=== PATIENT | female | born 1965 | race Caucasian/White ===

== ENCOUNTER 2017-09-17 20:48 | Observation (INO) | payer OTHER, SELFPAY ==
--- NOTE | 2017-09-17 12:40 | EKG12_ITS ---
Test Reason : CP Blood Pressure : / mmHG Vent. Rate : 104 BPM Atrial Rate : 104 BPM P-R Int : 150 ms QRS Dur : 088 ms QT Int : 360 ms P-R-T Axes : 027 004 060 degrees QTc Int : 473 ms Sinus tachycardia Low voltage QRS Nonspecific T wave abnormality Abnormal ECG Confirmed by MAIKOL BECERRIL, BRENDA ([id number]), manuscript editor NATALIO HESTER ([id number]) on 09/20/2017 5:48:49 PM Referred By: Atul Felipe Confirmed By:BRENDA LASSITER MD
--- NOTE | 2017-09-17 21:00 | RAD_ITS ---
STUDY: X-RAY CHEST REASON FOR EXAM: Female, 52 years old. Chest pain TECHNIQUE: Single AP portable view of the chest. COMPARISON: February 23, 2014 FINDINGS: The lungs are clear and expanded. There is no demonstrated pleural abnormality. Normal size heart. Normal mediastinum and vanessa. Normal visualized pulmonary arteries. Normal visualized aortic arch and descending thoracic aorta. Normal visualized thoracic spine. Normal visualized ribs, clavicles, and shoulders. There is no demonstrated abnormality of the visualized soft tissue structures of the upper abdomen. RAD/Chest 1 View (Portable) IMPRESSION: Normal x-ray examination of the chest. Electronically Signed: John Valdez MD at 21:48 EDT , Service support ,
--- NOTE | 2017-09-17 21:07 | EKG12_ITS ---
Test Reason : REPEAT EKG Blood Pressure : / mmHG Vent. Rate : 086 BPM Atrial Rate : 086 BPM P-R Int : 176 ms QRS Dur : 088 ms QT Int : 394 ms P-R-T Axes : 013 008 066 degrees QTc Int : 471 ms Normal sinus rhythm Low voltage QRS Septal infarct , age undetermined Abnormal ECG Confirmed by MAIKOL BECERRIL, BRENDA ([id number]), metropolitan editor NATALIO HESTER ([id number]) on 09/20/2017 6:29:32 PM Referred By: Atul Felipe Confirmed By:BRENDA LASSITER MD
--- NOTE | 2017-09-17 23:00 | CT_ITS ---
STUDY: CTA CHEST REASON FOR EXAM: Female, 52 years old. Chest pain radiating into the back, possible dissection RADIATION DOSAGE (If Supplied By Facility): CTDIvol = ( 15.06 ) mGy, DLP = ( 654.44 ) mGycm TECHNIQUE: The examination was performed with the intravenous administration of 100ML ml of Isovue 370 contrast material. Post-processing of the angiographic images was performed, with multiplanar reformation and 3D reconstruction. Individualized dose optimization techniques were used for this CT. COMPARISON: None. FINDINGS: Normal enhancement of the main pulmonary artery and right and left pulmonary arteries. Normal enhancement of the bilateral peripheral pulmonary arteries. There is no demonstrated pulmonary embolism. Normal thoracic aorta and visualized great vessels. There is no demonstrated aortic dissection. Normal heart and pericardium. Normal mediastinum. Normal hilar regions. Normal visualized trachea and bronchi. The lungs are well expanded. Normal pulmonary parenchyma. Normal pleura. Normal chest wall structures. There are degenerative changes of thoracic spine. Normal visualized upper abdomen. CT/CTA Chest W/WO Contrast IMPRESSION: Normal CTA chest examination, without a demonstrated pulmonary embolism or arterial dissection. Electronically Signed: Derian Verde MD at 23:46 EDT Tel , Service support ,
[2017-09-18] VITALS (14 sets, daily range): BP systolic 113–164; BP diastolic 58–85; PULSE 87–101; RESP 16–18; TEMP 36.4–36.7; O2SAT 95–100
--- NOTE | 2017-09-18 02:00 | DT_ITS ---
This patient was seen during an EMR downtime September 11, 2017 - September 18, 2017. This patient may have a combination of paper and electronic documentation or all paper documentation. All documentation is viewable within the e-chart portion of [facility] for each patient visit.
--- NOTE | 2017-09-18 02:24 | EKG12_ITS ---
Test Reason : AM EKG/ADMIT Blood Pressure : / mmHG Vent. Rate : 080 BPM Atrial Rate : 080 BPM P-R Int : 180 ms QRS Dur : 078 ms QT Int : 406 ms P-R-T Axes : 013 -09 052 degrees QTc Int : 468 ms Normal sinus rhythm Low voltage QRS Septal infarct , age undetermined Abnormal ECG Confirmed by MATTY BECERRIL, ANAYELI ([id number]), script editor NATALIO HESTER ([id number]) on 09/22/2017 1:47:02 PM Referred By: Atul Felipe Confirmed By:ANAYELI STARR MD
[2017-09-18 03:08] LABS: Absolute Lymphocyte Count 2.79 X10^3/ul (0.83-4.51); Absolute Neutrophil Count 7.7 X10^3/uL (2.0-7.7); Basophil# 0.06 X10^3/uL; Basophil% 0.5 % (0-1); Eosinophil# 0.26 X10^3/uL; Eosinophils% 2.3 % (0-5); Hematocrit 41.8 % (37-47); Hemoglobin 14.1 g/dl (12.0-15.0); Lymphocyte # 2.79 X10^3/ul (4.0); Lymphocyte % 24.5 % (19-41); Mean Corp Hgb Conc 33.7 g/gl (32-36); Mean Corpuscular Hgb 31.3 pg (27.0-32.0); Mean Corpuscular Volume 92.7 fL (81-99); Mean Platelet Vol. 9.6 fl (6.2-12.0); Monocyte# 0.57 X10^3/uL; Neutrophil # 7.69 X10^3/uL (2.7-7.7); Neutrophil % 67.4 % (47-70); Platelet Count 333 K/mm3 (150-450); RBC Distribution Width CV 12.9 % (11.6-14.6); RBC Distribution Width SD 43.8 fl (35.1-43.9); Red Blood Count 4.51 M/mm3 (4.2-5.4); White Blood Count 11.4 K/mm3 (4.4-11.0)
[2017-09-18 03:22] LABS: POSITIVE COUNT NO; POSITIVE DIFFERENTIAL NO; POSITIVE MORPHOLOGY NO
[2017-09-18] MEDS: Enoxaparin 150 MG/ML Syringe 135 MG SC (05:05)
[2017-09-18] MEDS: 0.9% NaCl Peripheral Flush Adult/Peds IV (05:28)
[2017-09-18] MEDS: Dextrose 50%-Water 25 GM/50 ML DISP.SYRIN IV (05:28)
[2017-09-18 05:50] LABS: Prothrombin Time (Protime)PT. 13.2 SECONDS (11.7-14.9)
[2017-09-18 05:51] LABS: Partial Thromboplast Time 33.6 Seconds (24.1-36.2)
[2017-09-18 06:09] LABS: Anion Gap 5 (5-15); BUN 11 mg/dL (7-18); Calcium,Total 8.6 mg/dL (8.5-10.1); Chloride 107 mmol/L (98-107); Cholesterol 155 mg/dL (200); Creatinine, Serum 0.58 mg/dL (0.55-1.02); EST Glomerular Filtration Rate 117 mL/min (>60); Est Glom Filt Rate - Afr Amer 142 mL/min (>60); Glucose 66 mg/dL (74-106); High Density Lipoprotein 45 mg/dL; Sodium Level 143 mmol/L (136-145); T4 Free Direct 1.01 ng/dL (0.76-1.46); Thyroid Stim Hormone (TSH) 4.81 uIU/mL (0.358-3.74); Triglycerides 137 mg/dL; Very Low Density Lipoprotein 27 mg/dL (5-40)
--- NOTE | 2017-09-18 10:35 | PCM.RX.CS ---
Consult Pharmacy has been consulted to manage selected antiobiotic: Vancomycin Type of Consult: New start Suspected Infection: Skin/Soft tissue Prior Doses of Antibiotics Received/Current Regimen: 2000MG IN ER AT 0100 Labs: Sodium 143 mmol/L (136-145) 09/18/17 05:00 Potassium 4.0 mmol/L (3.5-5.1) 09/18/17 05:00 Chloride 107 mmol/L (98-107) 09/18/17 05:00 Carbon Dioxide 31.0 mmol/L (21.0-32.0) 09/18/17 05:00 Anion Gap 5 (5-15) 09/18/17 05:00 BUN 11 mg/dL (7-18) 09/18/17 05:00 Creatinine 0.58 mg/dL (0.55-1.02) 09/18/17 05:00 Est GFR (MDRD) Af Amer 142 mL/min (>60) 09/18/17 05:00 Est GFR (MDRD) Non-Af 117 mL/min (>60) 09/18/17 05:00 BUN/Creatinine Ratio 19.0 RATIO (10-20) 09/18/17 05:00 Glucose 66 mg/dL (74-106) L 09/18/17 05:00 Weight used for dosin.8 kg Estimated Creatinine Clearance: >100 Goal Trough: 10-15 mcg/mL - 1750MG Q12H, CHECK TROUGH 09/19/17 @ 1230 Pharmacy Plan for Drug Dosing: Pharmacy Service will continue to monitor and adjust dosing as required.
--- NOTE | 2017-09-18 12:21 | PCM.PN.CARD ---
Subjectve: Patient seen and evaluated Objective: Weight: 299 lb 6.204 oz General: Awake, Alert, Oriented x 3 HEENT: PERRL, EOMI, Sclera Non Icteric Neck: Supple, Good ROM, No Lymph Node Enlargement Lungs: Clear to auscultation Cardiovascular: Regular Rhythm, Normal S1, Normal S2, No Murmurs, No Rubs, No Gallops Vascular: No Carotid Bruits, Normal Femoral Pulses, Normal Radial Pulses, Normal Dorsalis Pedal Pulse, Normal Posterior Tibial Pulses Abdomen: Bowel Sounds Present, Soft, Non Tender, No HSM, No Organomegaly Extremities: No Cyanosis, No Clubbing, No edema Neurological: No Focal Motor or Sensory Deficit 09/18/17 02:43: WBC 11.4 H, RBC 4.51, Hgb 14.1, Hct 41.8, MCV 92.7, MCH 31.3, MCHC 33.7, RDW 12.9, RDW Differential 43.8, Plt Count 333, MPV 9.6, Immature Gran % (Auto) 0.300, Neut % (Auto) 67.4, Lymph % (Auto) 24.5, [place] % (Auto) 5.0, Eos % (Auto) 2.3, Baso % (Auto) 0.5, Absolute Neuts (auto) 7.7, Total Counted Not Reportable 09/18/17 05:00: Sodium 143, Potassium 4.0, Chloride 107, Carbon Dioxide 31.0, Anion Gap 5, BUN 11, Creatinine 0.58, Est GFR (MDRD) Af Amer 142, Est GFR (MDRD) Non-Af 117, BUN/Creatinine Ratio 19.0, Glucose 66 L, Calcium 8.6, Troponin I 11.200 H*, Triglycerides 137, Cholesterol 155, LDL Cholesterol 83, VLDL Cholesterol 27, HDL Cholesterol 45 09/18/17 05:15: PT 13.2, INR 1.0, APTT 33.6 09/18/17 08:40: Troponin I 9.860 H* Rhythm: EKG: ECHO: Stress Test: Cardiac Cath: PCI: CT Surgery: Holter monitor: EPS: PPM: CXR: Chest CT Scan: Medical Necessity - Tobacco Use Smoking Status: Former smoker Assessment/Plan Patient underwent cardiac catheterization this morning which demonstrated the following: Left main coronary artery with mild disease. Left anterior descending artery severely diseased in the proximal mid and distal segments with serial 80% stenosis. First obtuse marginal branch with proximal long 90% stenotic lesion. First diagonal vessel with moderate disease. Proximal right coronary artery with moderate 50-70% stenotic lesion. Left ventriculogram deferred. An echocardiogram will be obtained. Based on the above angiographic findings the patient will be considered for coronary artery bypass surgery.
--- NOTE | 2017-09-18 12:27 | PN.CARD_ITS ---
Subjectve: Patient seen and evaluated Objective: Weight: 299 lb 6.204 oz General: Awake, Alert, Oriented x 3 HEENT: PERRL, EOMI, Sclera Non Icteric Neck: Supple, Good ROM, No Lymph Node Enlargement Lungs: Clear to auscultation Cardiovascular: Regular Rhythm, Normal S1, Normal S2, No Murmurs, No Rubs, No Gallops Vascular: No Carotid Bruits, Normal Femoral Pulses, Normal Radial Pulses, Normal Dorsalis Pedal Pulse, Normal Posterior Tibial Pulses Abdomen: Bowel Sounds Present, Soft, Non Tender, No HSM, No Organomegaly Extremities: No Cyanosis, No Clubbing, No edema Neurological: No Focal Motor or Sensory Deficit 09/18/17 02:43: WBC 11.4 H, RBC 4.51, Hgb 14.1, Hct 41.8, MCV 92.7, MCH 31.3, MCHC 33.7, RDW 12.9, RDW Differential 43.8, Plt Count 333, MPV 9.6, Immature Gran % (Auto) 0.300, Neut % (Auto) 67.4, Lymph % (Auto) 24.5, [place] % (Auto) 5.0 , Eos % (Auto) 2.3, Baso % (Auto) 0.5, Absolute Neuts (auto) 7.7, Total Counted Not Reportable 09/18/17 05:00: Sodium 143, Potassium 4.0, Chloride 107, Carbon Dioxide 31.0, Anion Gap 5, BUN 11, Creatinine 0.58, Est GFR (MDRD) Af Amer 142, Est GFR (MDRD ) Non-Af 117, BUN/Creatinine Ratio 19.0, Glucose 66 L, Calcium 8.6, Troponin I 11.200 H*, Triglycerides 137, Cholesterol 155, LDL Cholesterol 83, VLDL Cholesterol 27, HDL Cholesterol 45 09/18/17 05:15: PT 13.2, INR 1.0, APTT 33.6 09/18/17 08:40: Troponin I 9.860 H* Rhythm: EKG: ECHO: Stress Test: Cardiac Cath: PCI: CT Surgery: Holter monitor: EPS: PPM: CXR: Chest CT Scan: Medical Necessity - Tobacco Use Smoking Status: Former smoker Assessment/Plan Patient underwent cardiac catheterization this morning which demonstrated the following: Left main coronary artery with mild disease. Left anterior descending artery severely diseased in the proximal mid and distal segments with serial 80% stenosis. First obtuse marginal branch with proximal long 90% stenotic lesion. First diagonal vessel with moderate disease. Proximal right coronary artery with moderate 50-70% stenotic lesion. Left ventriculogram deferred. An echocardiogram will be obtained. Based on the above angiographic findings the patient will be considered for coronary artery bypass surgery.
[2017-09-18] MEDS: Famotidine 20 MG Tablet PO (12:58)
[2017-09-18] MEDS: hydroCHLOROthiazide 25 MG Tablet PO (12:58)
[2017-09-18] MEDS: Lisinopril 40 MG Tablet PO (12:59)
[2017-09-18] MEDS: buPROPion (XL) 300 MG TABLET.XL PO (12:59)
--- NOTE | 2017-09-18 13:00 | ECHOD_ITS ---
Reason For Study: CAD/ASHD Procedure This was a 2D Doppler, Color Flow transthoracic echocardiogram. The study was technically difficult. The study was technically limited. Due to body habitus. Contrast injection was performed. Exam performed portable in patient room. Left Ventricle Normal LV size. Left ventricular systolic function is normal. The estimated ejection fraction is 65 %. Transmitral diastolic flow velocities suggest mild (stage 1) diastolic dysfunction (reversed pattern). No regional wall motion abnormalities noted. Right Ventricle Normal RV size. Normal systolic function. Atria Normal left atrium. Normal right atrium. Mitral Valve Mitral valve not well visualized. Tricuspid Valve The tricuspid valve is not well visualized. Unable to estimate RV systolic pressure due to inadequate jet, pulmonary artery pressure probably normal. Aortic Valve The aortic valve is not well visualized. Pulmonic Valve Normal pulmonic valve. Great Vessels Normal aortic root. The pulmonary artery is normal size. Normal inferior vena cava. Pericardium/Pleural No pericardial effusion. Medication Diluted definity 4.0ml given slow IV push to enhance endocardial definition. MMode/2D Measurements & Calculations LVIDd: 4.1 cm IVSd: 1.2 cm LVIDs: 2.6 cm LVPWd: 1.0 cm FS: 35.4 % Doppler Measurements & Calculations MV E max bear: 73.3 cm/sec Ao V2 max: 144.5 cm/sec LV V1 max: 99.2 cm/sec MV A max bear: 110.9 cm/sec Ao max P.4 mmHg LV V1 max P.9 mmHg MV E/A: 0.66 PA V2 max: 98.6 cm/sec Interpretation Summary Normal LV size. Left ventricular systolic function is normal. The estimated ejection fraction is 65 %. Transmitral diastolic flow velocities suggest mild (stage 1) diastolic dysfunction (reversed pattern). Contrast injection was performed. Ordering Physician: Nolberto Toscano Referring Physician: Angela Canchola Performed By: Karon Chiu RDCS, RVT
[2017-09-18] MEDS: 0.9% Normal Saline 1,000 ML 100 ML IV (13:54)
[2017-09-18 14:01] LABS: Bedside Glucose 231 mg/dL (70-110)
--- NOTE | 2017-09-18 14:19 | DCINST_ITS ---
You will use the following diet at home:: Calorie/Carbohydrate Controlled ( specify 1200, 1400, etc) - 1800 kcal/day, Cardiac Your food should be the consistency of: Regular Your liquids should be the consistency of: Regular/Thin Allergies/Adverse Reactions: Allergies adhesive Allergy (Verified 02/23/14 16:33) Rash bacitracin [From Neosporin ([id number])] Allergy (Verified 02/23/14 16:32) Rash bacitracin zinc [From Neosporin ([id number])] Allergy (Verified 02/23/14 16: 32) Rash neomycin sulfate [From Neosporin ([id number])] Allergy (Verified 02/23/14 16: 32) Rash polymyxin B [From Neosporin ([id number])] Allergy (Verified 02/23/14 16:32) Rash morphine Adverse Reaction (Verified 02/23/14 16:32) Other Medications to take at Discharge Hydrochlorothiazide 25 mg PO DAILY 02/23/14 Insulin Lispro [Humalog] 1.2 units SC PRN 02/23/14 Levothyroxine [Synthroid] 200 mcg PO DAILY 02/23/14 Lisinopril 40 mg PO BID 02/23/14 buPROPion XL [Wellbutrin Xl] 300 mg PO DAILY 02/23/14 Aspirin [Aspirin, Baby] 81 mg PO DAILY@0800 #30 tab.chew 02/24/14 Primary Care Physician: Angela Canchola MD [Primary Care Provider] - Proposed Discharge Date: 09/18/17
--- NOTE | 2017-09-18 14:19 | PCM.DC.SUM ---
Discharge Date and Diagnosis - Problem List Patient Problems: Active and Suspected Problems Cellulitis of left lower extremity (Acute) NSTEMI (non-ST elevated myocardial infarction) (Acute) Date of Admission: 09/18/17 Date of Discharge: 09/18/17 - Primary Discharge Diagnosis Active and Suspected Problems Cellulitis of left lower extremity (Acute) NSTEMI (non-ST elevated myocardial infarction) (Acute) - Secondary Discharge Diagnosis Chronic Problems Diabetic retinopathy associated with type 2 diabetes mellitus (Chronic) Diabetes mellitus type 2 in obese (Chronic) Hospital Course and Treatment Imaging Results: 09/18/17 13:00 Echo Complete [ECHO] Routine Clinical Impression(s) from Imaging Studies Chest CTA 09/17/17 23:00 IMPRESSION: Normal CTA chest examination, without a demonstrated pulmonary embolism or arterial dissection. Electronically Signed: Derian Verde MD at 23:46 EDT Tel , Service support , Operations: None Procedures: Cardiac catheterization Summary of Care Provided: The patient is a 52 year old F presents with chest pain. Patient was admitted to see and had troponins that went as high as 11.2. Patient was started on Lovenox, Brilinta and GOYO inhibitor. Left heart catheterization showed 80% stenosis of the left anterior descending artery, 90% stenosis at the proximal first obtuse marginal, 50-70% stenosis of the proximal right coronary artery. It was felt that the patient would be best evaluated for coronary artery bypass grafting. Patient has been accepted by Dr. Wright at [facility]. Additionally, patient was noted to have left lower extremity cellulitis. Patient had earlier because an abrasion on her left anterior cheek from the floor boards of her truck. Did get erythematous. The area was demarcated with a marker and today the erythema has just really just around a centimeter around the area of her abrasion. Patient has been on vancomycin. I will continue with vancomycin but likely the antibiotics can be de-escalated. [] Discharge Diet: Low fat/ Low Cholesterol, 1800 Calorie Control Diet Home Medications: Medications to take at Discharge Hydrochlorothiazide 25 mg PO DAILY 02/23/14 Insulin Lispro [Humalog] 1.2 units SC PRN 02/23/14 Levothyroxine [Synthroid] 200 mcg PO DAILY 02/23/14 Lisinopril 40 mg PO BID 02/23/14 buPROPion XL [Wellbutrin Xl] 300 mg PO DAILY 02/23/14 Aspirin [Aspirin, Baby] 81 mg PO DAILY@0800 #30 tab.chew 02/24/14 Primary Care Physician: Angela Canchola MD [Primary Care Provider] - Disposition: Acute care Hospital Minutes spent on discharge:: 32 Patient Condition:: Stable Medical Necessity - Tobacco Use Smoking Status: Former smoker Meaningful Use Info Meaningful Use Diagnoses (Choose all that apply): AMI - AMI Aspirin given w/in 24hrs of arrival?: Yes ASA at discharge?: Yes Statins at discharge?: Yes Goyo/ARB at discharge?: Yes Beta Tobi at discharge?: Yes Done w/ Acute SD measure.: Yes Code Visit Inpatient E&M: 97555 Disch Hosp
--- NOTE | 2017-09-18 14:25 | DS.PCM_ITS ---
Discharge Date and Diagnosis - Problem List Patient Problems: Active and Suspected Problems Cellulitis of left lower extremity (Acute) NSTEMI (non-ST elevated myocardial infarction) (Acute) Date of Admission: 09/18/17 Date of Discharge: 09/18/17 - Primary Discharge Diagnosis Active and Suspected Problems Cellulitis of left lower extremity (Acute) NSTEMI (non-ST elevated myocardial infarction) (Acute) - Secondary Discharge Diagnosis Chronic Problems Diabetic retinopathy associated with type 2 diabetes mellitus (Chronic) Diabetes mellitus type 2 in obese (Chronic) Hospital Course and Treatment Imaging Results: 09/18/17 13:00 Echo Complete [ECHO] Routine Clinical Impression(s) from Imaging Studies Chest CTA 09/17/17 23:00 IMPRESSION: Normal CTA chest examination, without a demonstrated pulmonary embolism or arterial dissection. Electronically Signed: Derian Verde MD at 23:46 EDT Tel , Service support , Operations: None Procedures: Cardiac catheterization Summary of Care Provided: The patient is a 52 year old F presents with chest pain. Patient was admitted to see and had troponins that went as high as 11.2. Patient was started on Lovenox, Brilinta and GOYO inhibitor. Left heart catheterization showed 80% stenosis of the left anterior descending artery, 90% stenosis at the proximal first obtuse marginal, 50-70% stenosis of the proximal right coronary artery. It was felt that the patient would be best evaluated for coronary artery bypass grafting. Patient has been accepted by Dr. Wright at [facility]. Additionally, patient was noted to have left lower extremity cellulitis. Patient had earlier because an abrasion on her left anterior cheek from the floor boards of her truck. Did get erythematous. The area was demarcated with a marker and today the erythema has just really just around a centimeter around the area of her abrasion. Patient has been on vancomycin. I will continue with vancomycin but likely the antibiotics can be de-escalated. [ ] Discharge Diet: Low fat/ Low Cholesterol, 1800 Calorie Control Diet Home Medications: Medications to take at Discharge Hydrochlorothiazide 25 mg PO DAILY 02/23/14 Insulin Lispro [Humalog] 1.2 units SC PRN 02/23/14 Levothyroxine [Synthroid] 200 mcg PO DAILY 02/23/14 Lisinopril 40 mg PO BID 02/23/14 buPROPion XL [Wellbutrin Xl] 300 mg PO DAILY 02/23/14 Aspirin [Aspirin, Baby] 81 mg PO DAILY@0800 #30 tab.chew 02/24/14 Primary Care Physician: Angela Canchola MD [Primary Care Provider] - Disposition: Acute care Hospital Minutes spent on discharge:: 32 Patient Condition:: Stable Medical Necessity - Tobacco Use Smoking Status: Former smoker Meaningful Use Info Meaningful Use Diagnoses (Choose all that apply): AMI - AMI Aspirin given w/in 24hrs of arrival?: Yes ASA at discharge?: Yes Statins at discharge?: Yes Goyo/ARB at discharge?: Yes Beta Tobi at discharge?: Yes Done w/ Acute NC measure.: Yes Code Visit Inpatient E&M: [id number] Disch Hosp
[2017-09-18 16:47] LABS: Anion Gap 5 (5-15); BUN 11 mg/dL (7-18); Calcium,Total 8.6 mg/dL (8.5-10.1); Chloride 107 mmol/L (98-107); Cholesterol 155 mg/dL (200); Creatinine, Serum 0.58 mg/dL (0.55-1.02); EST Glomerular Filtration Rate 117 mL/min (>60); Est Glom Filt Rate - Afr Amer 142 mL/min (>60); Glucose 66 mg/dL (74-106); High Density Lipoprotein 45 mg/dL; Sodium Level 143 mmol/L (136-145); Triglycerides 137 mg/dL; Very Low Density Lipoprotein 27 mg/dL (5-40)
--- NOTE | 2017-09-18 17:10 | CL.D_ITS ---
Patient Name: ODILIA CAREY Study Date: 09/18/2017 Performing: Nolberto Toscano MD Ht: inches cm : 1965 Wt: 300.2 lbs 136 kg Age: 52 Gender: female BSA: PROCEDURE(S) PERFORMED [id number] CLINICAL PROFILE AND INDICATIONS Indications: ACS <= 24 hrs Heart Failure: None Stress/Imaging Stress/Image Study Performed: No CAD Presentations: Non-STEMI. Symptom onset Date/Time: 09/17/2017 Time Not Available CONCLUSIONS Severe diffuse disease involving the proximal mid and distal left anterior descending artery of up to 80% stenosis in all these areas. Disease involving the proximal left circumflex artery and moderate disease of the right coronary iglesia ry. RECOMMENDATIONS Surgery consult for coronary revascularization DESCRIPTION OF PROCEDURE The patient arrived to the procedure lab. The risks and benefits of the procedure as well as a full d escription of our services here and current unavailability of surgical backup were fully explained to the patient and/or their significant other prior to the catheterization. The Timeout was completed, verifying the correct patient and procedure. The patient's procedural site was prepped and draped in the usual fashion. Local anesthetic was given subcutaneously to right radial region with Lidocaine 2% . Using a modified Seldinger technique, arterial access was obtained via the right radial artery, a 6 Fr sheath was inserted. Right Coronary Artery selective angiography was then performed in multiple v iews using a 5 Fr. 4.0 [place] catheter.The arterial sheath was pulled and a TR Band was applied for he mostasis 18cc air inserted CORONARY ANGIOGRAPHY DOMINANCE: Right Dominant LEFT HEART ASSESSMENT Left Ventricular Ejection Fraction: by Echo 55 % LV wall motion not assessed LEFT MAIN: Angiographically normal LEFT ANTERIOR DECENDING ARTERY: Severe diffuse disease involving the proximal mid and distal left ant erior descending artery of up to 80% stenosis in all these areas. DIAGONAL 1: Proximal - Moderate luminal irregularities up to 50% CIRCUMFLEX ARTERY: OM 1: Proximal - Diffusely diseased up to 90 % RIGHT CORONARY ARTERY: MID RCA: Moderate luminal irregularities up to 50% COMPLICATIONS No Complications PROCEDURE MEDICATIONS Fentanyl 50 mcg IV Versed 1 mg IV Fentanyl 50 mcg IV Fentanyl 25 mcg IV Oxygen: 2 L/min via nasal cannula Baby Aspirin (81mg) 1 Tabs PO 09/18/2017 10:45:38 Atropine 1mg/10ml 0.5 amp @ 09/18/2017 11:36:28 Heparin diluted in 23cc Heparinized saline. Patient given 10cc IA of this solution. 09/18/2017 11:29: 41 Verapamil 2.5mg, Ntg 100mcgs, 2000 units of Heparin diluted in 23cc Heparinized saline. Patient give n 10cc IA of this solution. 09/18/2017 11:29:41 IV Fluids: .9 NaCl increased to W/O ml/hr 09/18/2017 11:35:27 SUMMARY OF HEMODYNAMIC DATA Time AIR REST ECG 10:52:48 AO 110/71 (88) SA 11:34:52 AO 125/81 (100) 11:41:49 Signed By Nolberto Toscano MD On 09/18/2017 17:09:46 Nolberto Toscano MD
[2017-09-18 17:11] LABS: Bedside Glucose 198 mg/dL (70-110)
[2017-09-18 19:00] LABS: Bedside Glucose 206 mg/dL (70-110)
[2017-09-19 11:22] LABS: BUN 11 mg/dL (7-18); BUN/Creat Ratio 14.1 RATIO (10-20); Calcium,Total 8.9 mg/dL (8.5-10.1); Creatinine, Serum 0.78 mg/dL (0.55-1.02); EST Glomerular Filtration Rate 83 mL/min (>60); Est Glom Filt Rate - Afr Amer 101 mL/min (>60); Glucose 165 mg/dL (74-106)
[2017-09-19 11:23] LABS: Anion Gap 8 (5-15); Chloride 101 mmol/L (98-107); Potassium 3.7 mmol/L (3.5-5.1); Sodium Level 138 mmol/L (136-145)
[2017-09-19 11:33] LABS: Bedside Glucose 69 mg/dL (70-110)
[2017-09-19 11:35] LABS: Bedside Glucose 109 mg/dL (70-110)
[2017-09-19 13:37] LABS: D-Dimer Quantitative (DVT/PE) 0.45 FEU/ug/m (0.27-0.49); Hematocrit 46.5 % (37-47); Hemoglobin 15.8 g/dl (12.0-15.0); Red Blood Count 4.98 M/mm3 (4.2-5.4); White Blood Count 11.3 K/mm3 (4.4-11.0)
[2017-09-19 13:38] LABS: Absolute Lymphocyte Count 2.47 X10^3/ul (0.83-4.51); Absolute Neutrophil Count 7.9 X10^3/uL (2.0-7.7); Basophil% 0.4 % (0-1); Eosinophils% 2.3 % (0-5); Erythrocyte Sedimentation Rate 46 mm/hr (0-30); Lymphocyte # 2.47 X10^3/ul (4.0); Lymphocyte % 21.8 % (19-41); Mean Corpuscular Hgb 31.7 pg (27.0-32.0); Mean Corpuscular Volume 93.4 fL (81-99); Mean Platelet Vol. 9.8 fl (6.2-12.0); Monocyte% 5.4 % (0-10); Neutrophil # 7.93 X10^3/uL (2.7-7.7); POSITIVE COUNT NO; POSITIVE DIFFERENTIAL NO; POSITIVE MORPHOLOGY NO; Platelet Count 360 K/mm3 (150-450); RBC Distribution Width CV 12.9 % (11.6-14.6); RBC Distribution Width SD 43.9 fl (35.1-43.9)
[2017-09-19 13:52] LABS: Internal QC Validated? YES +Cl - CLEAR BKGD; Pregnancy, Urine Negative Negative
[2017-09-22 20:39] LABS: Bedside Glucose 141 mg/dL (70-110)
== END 2017-09-18 19:30 | disposition short-term general hospital (02) ==
LOC: ED 09-18 10:05 → PCU 09-18 10:06
PROVIDERS: Admitting Provider Family Medicine; Emergency Provider Emergency Medicine; Family Provider Internal Medicine; PCP Internal Medicine
DX: I21.4 Non-ST elevation (NSTEMI) myocardial infarction (principal); L03.116 Cellulitis of left lower limb; F32.9 Major depressive disorder, single episode, unspecified; I10 Essential (primary) hypertension; F41.9 Anxiety disorder, unspecified; Z87.891 Personal history of nicotine dependence; E66.01 Morbid (severe) obesity due to excess calories; Z71.3 Dietary counseling and surveillance; E10.319 Type 1 diabetes mellitus with unspecified diabetic retinopathy without macular edema
CPT/HCPCS: 36415; 71045; 71275; 80048; 80061; 81025; 82962; 83735; 84439; 84443; 84484; 85025; 85379; 85610; 85652; 85730; 93005; 93306; 93454; 93971; 96365; 96366; 96372; 96375; 99152; 99153; 99218; J7030; J7040; Q9957; Q9967; A4216; C1769; C1887; C1894; C8929; G0378

== ENCOUNTER 2017-12-04 17:14 | Emergency (ER) | payer OTHER, SELFPAY ==
[2017-12-04 17:15] VITALS: BP 170/86; PULSE 89; RESP 18; TEMP 36.6; O2SAT 97; BMI 44.7
[2017-12-04 20:20] VITALS: RESP 16
--- NOTE | 2017-12-04 20:21 | ED.VISSUMM ---
- ER Visit Summary Date of Service: 12/04/17 Chief Complaint: Left-sided pain History of Present Illness: The patient is a 52 F who fell and hit her left side against a ceramic pot 5 days ago. She continues have pain in the left upper quadrant and bruising on her left lateral abdominal wall. Patient is on Brilinta. She initially presented to the urgent care due to concern for imaging needs was sent to the emergency room. Patient denies striking her head. She has had no headache. Physical Examination: Vital signs significant for blood pressure of 170/86, otherwise normal Head neck examination is unremarkable with no sign of trauma. Heart is regular rate and rhythm. Lung sounds are clear. She does have mild tenderness of the left lower ribs. There is no crepitus. Abdomen is soft with tenderness of the lateral abdominal wall. She does have ecchymosis over the lower lateral abdominal wall on the left. Lower external examination was ecchymosis over the greater trochanter of the left hip. There is no underlying bony tenderness with full range of motion. Test Results: Rib series with chest x-ray reveals slightly angulated/displaced fracture of the anterior left eighth rib. No pneumothorax. CT flank shows no further findings. Emergency Department Course and Treatment: Test results are discussed with patient and family at bedside. Repeat blood pressure is 119/77. Patient be given [place] for breakthrough pain along with Phenergan. We discussed importance of deep breathing to prevent pneumonia. She is to follow-up with her primary care physician. Treatment Plan: [] Disposition: Discharge Impression: 1. Left eighth rib fracture status post fall 2. Left abdominal wall contusion with hematoma This note was generated with [employer] dictation software. It may contain incorrect words, spelling, and punctuation that were not noted in review of the chart prior to signing ED Disposition - Plan for ED Patient: Disposition: Home or Assisted Living Chief Complaint: Chest Other Instructions: ED Fx Rib Prescriptions: proMETHazine tablet [Phenergan] 25 mg PO Q6H PRN PRN #10 tab PRN Reason: Nausea Hydrocodone/Acetaminophen [[place] 5-325 Tablet] 1 - 2 each PO 4X/DAY PRN PRN 5 Days #20 tablet PRN Reason: Pain Referrals: Angela Canchola MD [Primary Care Provider] - 1 Week
--- NOTE | 2017-12-04 20:22 | ED.DEP ---
ED Disposition - Plan for ED Patient: Disposition: Home or Assisted Living Chief Complaint: Chest Other Instructions: ED Fx Rib Prescriptions: Hydrocodone/Acetaminophen [[place] 5-325 Tablet] 1 - 2 each PO 4X/DAY PRN PRN 5 Days #20 tablet PRN Reason: Pain Referrals: Angela Canchola MD [Primary Care Provider] - 1 Week
--- NOTE | 2017-12-04 20:27 | ED.DEP ---
ED Disposition - Plan for ED Patient: Disposition: Home or Assisted Living Chief Complaint: Chest Other Instructions: ED Fx Rib Prescriptions: proMETHazine tablet [Phenergan] 25 mg PO Q6H PRN PRN #10 tab PRN Reason: Nausea Hydrocodone/Acetaminophen [[place] 5-325 Tablet] 1 - 2 each PO 4X/DAY PRN PRN 5 Days #20 tablet PRN Reason: Pain Referrals: Angela Canchola MD [Primary Care Provider] - 1 Week
[2017-12-04 20:30] VITALS: BP 119/77; PULSE 78; RESP 16; O2SAT 100
--- NOTE | 2017-12-04 20:32 | ED.RN ---
REVIEWED D/C INSTRUCTIONS, FOLLOW UP CARE, PRESCRIPTIONS, AND S/S THAT WOULD WARRANT A RETURN TO THE ED WITH PT. PT VERBALIZED AN UNDERSTANDING AND DENIES FURTHER QUESTIONS FOR THIS RN. PT SKIN P/W/D, RESP EVEN AND UNLABORED, PT A&O X 3, NO DISTRESS NOTED. PT AMBULATED OUT OF ED, GAIT STEADY.
== END 2017-12-04 20:36 | disposition home or self-care (01) ==
PROVIDERS: Emergency Provider Emergency Medicine; Family Provider Internal Medicine; PCP Internal Medicine
DX: S22.32XA Fracture of one rib, left side, initial encounter for closed fracture (principal); S30.1XXA Contusion of abdominal wall, initial encounter; W19.XXXA Unspecified fall, initial encounter; Y93.9 Activity, unspecified; Y92.9 Unspecified place or not applicable; I25.10 Atherosclerotic heart disease of native coronary artery without angina pectoris; I25.2 Old myocardial infarction; E11.9 Type 2 diabetes mellitus without complications; E78.00 Pure hypercholesterolemia, unspecified; E03.9 Hypothyroidism, unspecified; Z79.82 Long term (current) use of aspirin; Z79.4 Long term (current) use of insulin; Z79.899 Other long term (current) drug therapy
CPT/HCPCS: 71101; 74176; 99283

== ENCOUNTER 2017-12-15 12:01 | Emergency (ER) | payer OTHER, SELFPAY ==
[2017-12-15 12:01] VITALS: BP 146/72; PULSE 95; RESP 16; TEMP 36.5; O2SAT 97; BMI 44.1
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
[2017-12-15 12:46] VITALS: BP 153/71; PULSE 90; RESP 16; O2SAT 96
== END 2017-12-15 12:57 | disposition home or self-care (01) ==
LOC: ED 12:51
PROVIDERS: Emergency Provider Emergency Medicine; Family Provider Internal Medicine; PCP Internal Medicine
DX: R07.9 Chest pain, unspecified (principal); M25.512 Pain in left shoulder; V49.50XA Passenger injured in collision with unspecified motor vehicles in traffic accident, initial encounter; Y93.9 Activity, unspecified; Y92.9 Unspecified place or not applicable; Y99.9 Unspecified external cause status; I25.10 Atherosclerotic heart disease of native coronary artery without angina pectoris; I25.2 Old myocardial infarction; Z79.82 Long term (current) use of aspirin; Z79.899 Other long term (current) drug therapy
CPT/HCPCS: 93005; 99284

== ENCOUNTER 2017-12-17 14:05 | Emergency (ER) | payer OTHER, SELFPAY ==
[2017-12-17 14:09] VITALS: BP 121/63; PULSE 77; RESP 16; TEMP 36.7; O2SAT 97; BMI 45.5
--- NOTE | 2017-12-17 14:26 | EKG12_ITS ---
Test Reason : CP Blood Pressure : / mmHG Vent. Rate : 071 BPM Atrial Rate : 071 BPM P-R Int : 196 ms QRS Dur : 066 ms QT Int : 422 ms P-R-T Axes : 039 007 040 degrees QTc Int : 458 ms Normal sinus rhythm Low voltage QRS Septal infarct , age undetermined Abnormal ECG Confirmed by MAIKOL BECERRIL, BRENDA ([id number]), editor dictionary NATALIO HESTER ([id number]) on 12/19/2017 1:30:51 PM Referred By: MATEO/SUZETTE Confirmed By:BRENDA LASSITER MD
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
[2017-12-17] MEDS: Aspirin 81 MG TAB.CHEW 324 MG PO (14:49)
[2017-12-17 14:52] VITALS: BP 113/60; PULSE 69
[2017-12-17 14:56] VITALS: O2SAT 96
[2017-12-17 15:13] VITALS: BP 115/67; PULSE 70; RESP 16; O2SAT 97
--- NOTE | 2017-12-17 15:14 | ED.RN ---
AFTER ONE NITRO SL 0.4MG PT RATED PAIN AT 1 AND REFUSED ANY MORE NITRO SL.
[2017-12-17 15:17] LABS: Absolute Lymphocyte Count 1.74 X10^3/ul (0.83-4.51); Absolute Neutrophil Count 8.8 X10^3/uL (2.0-7.7); Basophil# 0.04 X10^3/uL; Basophil% 0.3 % (0-1); Eosinophil# 0.29 X10^3/uL; Eosinophils% 2.5 % (0-5); Hematocrit 41.3 % (37-47); Hemoglobin 14.3 g/dl (12.0-15.0); Lymphocyte # 1.74 X10^3/ul (4.0); Lymphocyte % 15.1 % (19-41); Mean Corp Hgb Conc 34.6 g/gl (32-36); Mean Corpuscular Hgb 32.5 pg (27.0-32.0); Mean Corpuscular Volume 93.9 fL (81-99); Mean Platelet Vol. 10.3 fl (6.2-12.0); Monocyte# 0.64 X10^3/uL; Monocyte% 5.6 % (0-10); Neutrophil # 8.79 X10^3/uL (2.7-7.7); Neutrophil % 76.3 % (47-70); Platelet Count 380 K/mm3 (150-450); RBC Distribution Width CV 12.7 % (11.6-14.6); White Blood Count 11.5 K/mm3 (4.4-11.0)
[2017-12-17 15:27] LABS: Anion Gap 8 (5-15); BUN 11 mg/dL (7-18); BUN/Creat Ratio 13.8 RATIO (10-20); Calcium,Total 8.8 mg/dL (8.5-10.1); Chloride 104 mmol/L (98-107); EST Glomerular Filtration Rate 81 mL/min (>60); Est Glom Filt Rate - Afr Amer 98 mL/min (>60); Estimated Creatinine Clearance 78.76 ml/min; Glucose 214 mg/dL (74-106); Potassium 4.3 mmol/L (3.5-5.1); Sodium Level 137 mmol/L (136-145)
[2017-12-17 15:28] LABS: POSITIVE COUNT NO; POSITIVE DIFFERENTIAL NO; POSITIVE MORPHOLOGY NO
[2017-12-17 16:02] VITALS: BP 112/60; PULSE 74; RESP 16; O2SAT 99
[2017-12-17 16:02] LABS: BNP,B-Type NATRIURETIC PEPTIDE 58.4 pg/mL (0-100)
--- NOTE | 2017-12-17 16:24 | ED.DEP ---
ED Disposition - Plan for ED Patient: Chief Complaint: Chest Pain Instructions: ED Chest Pain Atypical Unkn Cause Referrals: Angela Canchola MD [Primary Care Provider] - Additional Instructions: Follow-up with your petroleum sampler and family doctors tomorrow
[2017-12-17 16:48] VITALS: BP 112/60; PULSE 74; RESP 16; O2SAT 99
== END 2017-12-17 17:01 | disposition home or self-care (01) ==
LOC: ED 14:58
PROVIDERS: Emergency Provider Emergency Medicine; Family Provider Internal Medicine; PCP Internal Medicine
DX: R07.9 Chest pain, unspecified (principal); S22.32XD Fracture of one rib, left side, subsequent encounter for fracture with routine healing; V49.50XD Passenger injured in collision with unspecified motor vehicles in traffic accident, subsequent encounter; I25.10 Atherosclerotic heart disease of native coronary artery without angina pectoris; Z79.82 Long term (current) use of aspirin; Z79.4 Long term (current) use of insulin; Z79.899 Other long term (current) drug therapy; Z95.5 Presence of coronary angioplasty implant and graft
CPT/HCPCS: 71045; 80048; 83880; 84484; 85025; 93005; 99285; A4216; J2405

== ENCOUNTER → 2018-01-25 11:25 | Outpatient (CLI) | payer OTHER, SELFPAY ==
[2018-01-25 13:36] LABS: Microalbumin,Random Urine 14.2 mg/L (NO RANGE EST.); Microalbumin:Creatinine Ratio 8.4 mg/g CRE (<30 mg/g CRE)
[2018-01-25 13:57] LABS: Hemoglobin A1c 8.8 % (4.2-6.3)
[2018-01-25 13:58] LABS: T4 Free Direct 1.42 ng/dL (0.76-1.46); Thyroid Stim Hormone (TSH) 1.31 uIU/mL (0.358-3.74)
== END ==
LOC: LAB 11:29
PROVIDERS: Family Provider Internal Medicine; PCP Internal Medicine; Referring Provider Nurse Practitioner; Visit Provider Nurse Practitioner
DX: E11.319 Type 2 diabetes mellitus with unspecified diabetic retinopathy without macular edema (principal)
CPT/HCPCS: 36415; 82043; 82570; 83036; 84439; 84443

== ENCOUNTER 2018-01-30 14:43 | Inpatient (IN) | payer OTHER, SELFPAY ==
[2018-01-30] VITALS (11 sets, daily range): BP systolic 103–158; BP diastolic 45–80; PULSE 75–85; RESP 14–18; TEMP 36.4–37.1; O2SAT 95–98; BMI 45.2; BMI 45.4
--- NOTE | 2018-01-30 14:52 | EKG12_ITS ---
Test Reason : CP Blood Pressure : / mmHG Vent. Rate : 082 BPM Atrial Rate : 082 BPM P-R Int : 176 ms QRS Dur : 080 ms QT Int : 392 ms P-R-T Axes : 017 -07 034 degrees QTc Int : 457 ms Normal sinus rhythm Low voltage QRS Borderline ECG Confirmed by MATTY BECERRIL, ANAYELI ([id number]), school photograph editor NATALIO HESTER ([id number]) on 02/02/2018 1:08:36 PM Referred By: Ana Brady Confirmed By:ANAYELI STARR MD
--- NOTE | 2018-01-30 15:00 | RAD_ITS ---
STUDY: X-RAY CHEST REASON FOR EXAM: Female, 52 years old. Midsternal chest pain. TECHNIQUE: Single AP portable view of the chest. COMPARISON: Comparison is made with prior study dated December 17, 2017. FINDINGS: EKG electrodes are seen. The lungs are clear and expanded. Scattered calcified granulomas. There is no demonstrated pleural abnormality. Normal size heart. Normal mediastinum and vanessa. Normal visualized pulmonary arteries. Normal visualized aortic arch and descending thoracic aorta. There are diffuse degenerative changes of the visualized thoracic spine. Normal visualized ribs, clavicles, and shoulders. There is no demonstrated abnormality of the visualized soft tissue structures of the upper abdomen. RAD/Chest 1 View (Portable) IMPRESSION: No acute abnormality is present. Electronically Signed: Hussein Bashir MD at 15:18 EDT Tel [phone], Service support ,
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
[2018-01-30 15:04] LABS: Absolute Lymphocyte Count 2.39 X10^3/ul (0.83-4.51); Absolute Neutrophil Count 7.6 X10^3/uL (2.0-7.7); Basophil# 0.05 X10^3/uL; Basophil% 0.5 % (0-1); Eosinophil# 0.32 X10^3/uL; Hematocrit 41.2 % (37-47); Hemoglobin 13.8 g/dl (12.0-15.0); Lymphocyte # 2.39 X10^3/ul (4.0); Lymphocyte % 22.2 % (19-41); Mean Corp Hgb Conc 33.5 g/gl (32-36); Mean Corpuscular Hgb 31.7 pg (27.0-32.0); Mean Corpuscular Volume 94.7 fL (81-99); Mean Platelet Vol. 9.7 fl (6.2-12.0); Monocyte# 0.34 X10^3/uL; Monocyte% 3.2 % (0-10); Neutrophil # 7.64 X10^3/uL (2.7-7.7); Neutrophil % 70.9 % (47-70); POSITIVE COUNT NO; POSITIVE DIFFERENTIAL NO; POSITIVE MORPHOLOGY NO; Platelet Count 337 K/mm3 (150-450); RBC Distribution Width CV 12.8 % (11.6-14.6); RBC Distribution Width SD 44.2 fl (35.1-43.9); Red Blood Count 4.35 M/mm3 (4.2-5.4); White Blood Count 10.8 K/mm3 (4.4-11.0)
[2018-01-30 15:16] LABS: AST(SGOT) 10 U/L (15-37); Alanine Aminotransfer ALT/SGPT 16 U/L (13-56); Alkaline Phosphatase 139 U/L (45-117); Anion Gap 10 (5-15); BUN 15 mg/dL (7-18); Bilirubin, Direct 0.08 mg/dL (0.00-0.30); Calcium,Total 8.7 mg/dL (8.5-10.1); Chloride 101 mmol/L (98-107); Creatinine, Serum 0.83 mg/dL (0.55-1.02); EST Glomerular Filtration Rate 77 mL/min (>60); Est Glom Filt Rate - Afr Amer 93 mL/min (>60); Estimated Creatinine Clearance 78.86 ml/min; Globulin 4.6 g/dL (2.2-4.2); Glucose 212 mg/dL (74-106); Potassium 3.9 mmol/L (3.5-5.1); Protein, Total 7.6 g/dL (6.4-8.2); Sodium Level 135 mmol/L (136-145)
--- NOTE | 2018-01-30 15:53 | PCM.HP.STD ---
Problem List (1) Chest pain Status: Acute History of Present Illness Date of Admission: 01/30/18 Chief Complaint: chest pain The patient is a 52 year old F with a history of type 1 diabetes and CAD with AK in September status post 2 stents as well as hypertension. She came into the ED on 01/27/2018 with a complaint of chest pain which has been episodic for the past few days. Pain was retrosternal she described it as aching, rated 3 out of 10, aggravated by lying down and relieved by aspirin and nitro. She did have any assisted diaphoresis, shortness of breath, orthopnea or PND, palpitations or lightheadedness. She decided coming to the ED because she had been told by her grocery department manager in September when she had her AK and the stents that if the chest pain recurred she did come straight to the hospital. In the ED, initial troponin was negative and chest x-ray showed no acute cardiopulmonary process. Labs were only significant for sodium of 135. EKG showed no acute ST changes. She is been admitted to be managed for chest pain to rule out ACS. [] Past Medical History Past Medical History (Chronic Problems): Chronic Problems (Last Updated 01/25/18 @ 10:41 by Saima Odonnell) CAD in [place] artery (Chronic) S/P PTCA (percutaneous transluminal coronary angioplasty) (Chronic) S/P coronary artery stent placement (Chronic) [facility] from [facility] to [facility] on 09/19/17 for multivessel CAD: PCI and VALENTINE of LAD and proximal ramus intermedius per Dr. Gutierrez NSTEMI (non-ST elevated myocardial infarction) (Chronic 09/18/17) Atherosclerotic heart disease of [place] coronary artery without angina pectoris (Chronic) Tsfer from [facility] to [facility] on 09/19/17 for multivessel CAD: PCI and VALENTINE of LAD and proximal ramus intermedius per Dr. Gutierrez History of left heart catheterization (Chronic) 09/19/[address] Toscano @ [facility] Hypertension (Chronic) Hyperlipidemia (Chronic) At goal No adjustment Diabetic retinopathy associated with type 2 diabetes mellitus (Chronic) Diabetes mellitus type 2 in obese (Chronic) Over correcting at bedtime. Will change 8pm correction to 1-50. Needs higher basal at night and may need to alter other basals as we continue to adjust but will continue to monitor. Increase 12m by 0.2 Medical History: Medical History (Last Updated 01/25/18 @ 10:41 by Saima Odonnell) NSTEMI (non-ST elevated myocardial infarction) (Chronic) Onset Date: 09/18/17 I21.4 Atherosclerotic heart disease of [place] coronary artery without angina pectoris (Chronic) I25.10 Tsfer from [facility] to [facility] on 09/19/17 for multivessel CAD: PCI and VALENTINE of LAD and proximal ramus intermedius per Dr. Gutierrez Hypertension (Chronic) I10 Hyperlipidemia (Chronic) E78.5 At goal No adjustment Anxiety F41.9 Cataracts, bilateral H26.9 Neuropathy G62.9 Type 2 diabetes mellitus E11.9 Dx :1977 Last exacerbation : DKA : 1987 Hypoglycemic episode : never DKA : 1987 Vision abnormalities H53.9 Bone fracture T14.8XXA Allergies adhesive Allergy (Verified 01/30/18 14:46) Rash bacitracin [From Neosporin ([id number])] Allergy (Verified 01/30/18 14:46) Rash bacitracin zinc [From Neosporin ([id number])] Allergy (Verified 01/30/18 14:46) Rash neomycin sulfate [From Neosporin ([id number])] Allergy (Verified 01/30/18 14:46) Rash polymyxin B [From Neosporin (clb-[id number])] Allergy (Verified 01/30/18 14:46) Rash Kxpglet-Eun-Lkn Reductase Inhibitor Allergy (Verified 01/30/18 14:46) MUSCLE WEAKNESS morphine Adverse Reaction (Verified 01/30/18 14:46) Other Home Medications: Ambulatory Orders Medication Instructions Recorded buPROPion XL [Wellbutrin Xl] 300 mg PO DAILY 02/23/14 insulin lispro (U- 100) 100 See Rx Instructions SC PRN 10/05/17 unit/mL subcutaneous solution isosorbide mononitrate ER 30 mg 30 mg PO QAM #90 tab 10/05/17 tablet,extended release 24 hr lisinopril 20 mg tablet 20 mg PO QDAY #90 tab 10/05/17 metoprolol succinate ER 50 mg 50 mg PO QDAY #90 tab 10/05/17 tablet,extended release 24 hr ticagrelor 90 mg tablet 90 mg PO BID #180 tab 10/05/17 levothyroxine 200 mcg tablet 200 mcg PO QDAY #90 tab 11/20/17 proMETHazine tablet [Phenergan] 25 mg PO Q6H PRN PRN #10 tab 12/04/17 Aspirin E.C. [Ecotrin] 81 mg PO DAILY 01/30/18 Hydrochlorothiazide [Hctz] 25 mg PO DAILY 01/30/18 Hydrocodone/Acetaminophen [[place] 1 tab PO 4X/DAY 01/30/18 5-325 Tablet] Surgical History: Surgical History (Last Reviewed 01/25/18 @ 10:31 by Saima Odonnell) S/P coronary artery stent placement (Chronic) Z95.5 Tsfer from [facility] to [facility] on 09/19/17 for multivessel CAD: PCI and VALENTINE of LAD and proximal ramus intermedius per Dr. Gutierrez History of left heart catheterization (Chronic) Z98.890 09/19/[address] Toscano @ [facility] History of dilatation and curettage Z98.890 History of tonsillectomy Z90.89 Surgical History: - - History of , 2 D&Cs, tonsillectomy, 7 laser surgeries on her eyes Psychiatric History: No pertinent psych hx SCIENCE INSTRUCTOR History: No pertinent SCIENCE INSTRUCTOR history Lives: Spouse/ Significant Other Smoking Status: Former smoker Alcohol: None - *Family History Maternal Family History: Family History (Last Reviewed 01/25/18 @ 10:31 by Saima Odonnell) Other CVA (cerebral vascular accident) Diabetes Heart disease Hypertension Thyroid disorder History Items: Stroke Review of Systems Constitutional: Denies: Chills, Fever, Malaise, Weakness, Weight Change, Fatigue Eyes: Denies: Blurred vision HEENT: Denies: Head Aches, Sinus Congestion, Sinus Drainage Cardiovascular: Reports: Chest Pain. Denies: Claudication, Chest Pressure, Chest Tightness, Edema, Heaviness, Light Headedness, Orthopnea, Palpitations, Paroxysmal Noc. Dyspnea Respiratory: Denies: Cough, Shortness of Breath, Shortness of breath at rest, Shortness of breath upon exertion, Sputum production Gastrointestinal: Denies: Abdominal Pain, Nausea, Vomiting Genitourinary: Denies: Dysuria Musculoskeletal: Denies: Joint Pain, Joint Tenderness Skin: Denies: Rash, Wounds Neurological: Denies: Numbness, Tingling, Focal weakness Psychiatric: Denies: Anxiety, Depression, Homicidal Ideations, Suicidal Ideations Hematologic/ Lymphatic: Denies: Easy Bruising, Easy Bleeding VTE Information - Inpt Only VTE Present on Admission: No VTE Pharm Prophylaxis ordered?: Yes Patient Problems: Active and Suspected Problems (Last Updated 01/25/18 @ 10:41 by Saima Odonnell) Chest pain (Acute) - Physical Exam General: Alert, Oriented x3, Cooperative, No apparent distress HEENT: Atraumatic, PERRLA, EOMI, Normocephalic Oral: Moist Mucosa Neck: Supple, No JVD, Negative Carotid Bruits Lungs: Clear to auscultation, Normal air movement, No rhonchi, No wheeze, No rales Cardiovascular: Regular rate, Regular Rhythm, Normal S1, No murmurs Abdomen: Bowel Sounds Present, Soft, Non Tender, Non-Distended, No Hepato-splenomegaly, Obese Extremities: No clubbing, No cyanosis, No edema, Capillary Refill Less than 3 Seconds Skin: No rashes, No breakdown Musculoskeletal: No Tenderness to Palpation of Joints or Extremities Lymphatic: No Cervical, Supraclavicular, or Inguinal Adenopathy Neurological: Cranial nerves II-XII grossly intact, Neuro grossly intact, Motor Exam 5/5 strength throughout Psych/Mental Status: Normal Affect, Appropriate, Alert and oriented to time, place, person, mood and affect Vital Signs Temp Pulse Resp BP Pulse Ox 98.7 F 77 16 144/77 H 96 01/30/18 15:43 01/30/18 15:43 01/30/18 15:43 01/30/18 15:43 01/30/18 15:43 Oxygen Delivery Method Room Air Weight: 289 lb Body Mass Index (BMI) 45.2 Laboratory Tests Past 24 Hrs 01/30/18 01/30/18 14:50 14:50 WBC 10.8 RBC 4.35 Hgb 13.8 Hct 41.2 MCV 94.7 MCH 31.7 MCHC 33.5 RDW 12.8 RDW Differential 44.2 H Plt Count 337 MPV 9.7 Immature Gran % (Auto) 0.200 Neut % (Auto) 70.9 H Lymph % (Auto) 22.2 [place] % (Auto) 3.2 Eos % (Auto) 3.0 Baso % (Auto) 0.5 Absolute Neuts (auto) 7.6 Absolute Lymphs (auto) 2.39 Total Counted Not Reportable Sodium 135 L Potassium 3.9 Chloride 101 Carbon Dioxide 24.0 Anion Gap 10 BUN 15 Creatinine 0.83 Estim Creat Clear Calc 78.86 Est GFR (MDRD) Af Amer 93 Est GFR (MDRD) Non-Af 77 BUN/Creatinine Ratio 18.0 Glucose 212 H Calcium 8.7 Total Bilirubin 0.30 Direct Bilirubin 0.08 AST 10 L ALT 16 Alkaline Phosphatase 139 H Troponin I < 0.015 Total Protein 7.6 Albumin 3.0 L Globulin 4.6 H Diagnostic Data Chest X-Ray 01/30/18 15:00 IMPRESSION: No acute abnormality is present. Electronically Signed: Hussein Bashir MD at 15:18 EDT Tel [phone], Service support , Assessment/Plan All Active Problems (Last Updated 01/25/18 @ 10:41 by Saima Odonnell) Chest pain (Acute) Cellulitis of left lower extremity (Acute) NSTEMI (non-ST elevated myocardial infarction) (Acute) 52 y/o with history of NSTEMI s/p 2 stents (09/25) presents with recurrent chest pain for 3 days. 1. Chest pain, rule out ACS Initial troponin is negative. EKG showed no acute ST changes. To PCU with telemetry cycle troponins If troponins trend up, will benefit from a cardiac catheter she is very high risk If troponins trend up then will have a stress test. cardiology consult in light of her history of recent NSTEMI wuth stent placement and recurrent chest pain SL nitroglycerin prn and aspirin 81mg daily 2. CAD s/p stents on aspirin, brilinta, imdur and statin. continue these meds 3.TYpe 1 diabetes on insulin pump. Prefers to remain on her insulin pump as she is a brittle diabetic and her blood sugars fluctuate continue insulin pump 4. Hypertension: On lisinopril 20 mg daily, metoprolol 50 mill grams daily and hydrochlorothiazide 25 mg daily 5. Hypothyroidism: On Synthroid 200 mg daily. DVT prophylaxis: Heparin Code Status: Full code. Code Visit OBSV E&M: 82954 Initial observation care L3
--- NOTE | 2018-01-30 15:58 | HP.PCM_ITS ---
Problem List (1) Chest pain Status: Acute History of Present Illness Date of Admission: 01/30/18 Chief Complaint: chest pain The patient is a 52 year old F with a history of type 1 diabetes and CAD with ME in September status post 2 stents as well as hypertension. She came into the ED on 01/27/2018 with a complaint of chest pain which has been episodic for the past few days. Pain was retrosternal she described it as aching, rated 3 out of 10, aggravated by lying down and relieved by aspirin and nitro. She did have any assisted diaphoresis, shortness of breath, orthopnea or PND, palpitations or lightheadedness. She decided coming to the ED because she had been told by her residence hall director in September when she had her ME and the stents that if the chest pain recurred she did come straight to the hospital. In the ED, initial troponin was negative and chest x-ray showed no acute cardiopulmonary process. Labs were only significant for sodium of 135. EKG showed no acute ST changes. She is been admitted to be managed for chest pain to rule out ACS. [] Past Medical History Past Medical History (Chronic Problems): Chronic Problems (Last Updated 01/25/18 @ 10:41 by Saima Odonnell) CAD in [place] artery (Chronic) S/P PTCA (percutaneous transluminal coronary angioplasty) (Chronic) S/P coronary artery stent placement (Chronic) Tsfer from [facility] to [facility] on 09/19/17 for multivessel CAD: PCI and VALENTINE of LAD and proximal ramus intermedius per Dr. Gutierrez NSTEMI (non-ST elevated myocardial infarction) (Chronic 09/18/17) Atherosclerotic heart disease of [place] coronary artery without angina pectoris (Chronic) Tsfer from [facility] to [facility] on 09/19/17 for multivessel CAD: PCI and VALENTINE of LAD and proximal ramus intermedius per Dr. Gutierrez History of left heart catheterization (Chronic) 09/19/[address] Toscano @ [facility] Hypertension (Chronic) Hyperlipidemia (Chronic) At goal No adjustment Diabetic retinopathy associated with type 2 diabetes mellitus (Chronic) Diabetes mellitus type 2 in obese (Chronic) Over correcting at bedtime. Will change 8pm correction to 1-50. Needs higher basal at night and may need to alter other basals as we continue to adjust but will continue to monitor. Increase 12m by 0.2 Medical History: Medical History (Last Updated 01/25/18 @ 10:41 by Saima Odonnell) NSTEMI (non-ST elevated myocardial infarction) (Chronic) Onset Date: 09/18/17 I21.4 Atherosclerotic heart disease of [place] coronary artery without angina pectoris (Chronic) I25.10 Tsfer from [facility] to [facility] on 09/19/17 for multivessel CAD: PCI and VALENTINE of LAD and proximal ramus intermedius per Dr. Gutierrez Hypertension (Chronic) I10 Hyperlipidemia (Chronic) E78.5 At goal No adjustment Anxiety F41.9 Cataracts, bilateral H26.9 Neuropathy G62.9 Type 2 diabetes mellitus E11.9 Dx :1977 Last exacerbation : DKA : 1987 Hypoglycemic episode : never DKA : 1987 Vision abnormalities H53.9 Bone fracture T14.8XXA Allergies adhesive Allergy (Verified 01/30/18 14:46) Rash bacitracin [From Neosporin ([id number])] Allergy (Verified 01/30/18 14:46) Rash bacitracin zinc [From Neosporin (qtd-ejz-[id number])] Allergy (Verified 01/30/18 14:46) Rash neomycin sulfate [From Neosporin ([id number]-[id number])] Allergy (Verified 01/30/18 14:46) Rash polymyxin B [From Neosporin (ful-lsd-hzdbp)] Allergy (Verified 01/30/18 14:46) Rash Syqnxlv-Shf-Ubt Reductase Inhibitor Allergy (Verified 01/30/18 14:46) MUSCLE WEAKNESS morphine Adverse Reaction (Verified 01/30/18 14:46) Other Home Medications: Ambulatory Orders Medication Instructions Recorded buPROPion XL [Wellbutrin Xl] 300 mg PO DAILY 02/23/14 insulin lispro (U- 100) 100 See Rx Instructions SC PRN 10/05/17 unit/mL subcutaneous solution isosorbide mononitrate ER 30 mg 30 mg PO QAM #90 tab 10/05/17 tablet,extended release 24 hr lisinopril 20 mg tablet 20 mg PO QDAY #90 tab 10/05/17 metoprolol succinate ER 50 mg 50 mg PO QDAY #90 tab 10/05/17 tablet,extended release 24 hr ticagrelor 90 mg tablet 90 mg PO BID #180 tab 10/05/17 levothyroxine 200 mcg tablet 200 mcg PO QDAY #90 tab 11/20/17 proMETHazine tablet [Phenergan] 25 mg PO Q6H PRN PRN #10 tab 12/04/17 Aspirin E.C. [Ecotrin] 81 mg PO DAILY 01/30/18 Hydrochlorothiazide [Hctz] 25 mg PO DAILY 01/30/18 Hydrocodone/Acetaminophen [[place] 1 tab PO 4X/DAY 01/30/18 5-325 Tablet] Surgical History: Surgical History (Last Reviewed 01/25/18 @ 10:31 by Saima Odonnell) S/P coronary artery stent placement (Chronic) Z95.5 Tsfer from [facility] to [facility] on 09/19/17 for multivessel CAD: PCI and VALENTINE of LAD and proximal ramus intermedius per Dr. Gutierrez History of left heart catheterization (Chronic) Z98.890 09/19/[address] 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 Denies: Claudication, Chest Pressure, Chest Tightness, Edema, Heaviness, Light Headedness, Orthopnea, Palpitations, Paroxysmal Noc. Dyspnea Respiratory: Denies: Cough, Shortness of Breath, Shortness of breath at rest, Shortness of breath upon exertion, Sputum production Gastrointestinal: Denies: Abdominal Pain, Nausea, Vomiting Genitourinary: Denies: Dysuria Musculoskeletal: Denies: Joint Pain, Joint Tenderness Skin: Denies: Rash, Wounds Neurological: Denies: Numbness, Tingling, Focal weakness Psychiatric: Denies: Anxiety, Depression, Homicidal Ideations, Suicidal Ideations Hematologic/ Lymphatic: Denies: Easy Bruising, Easy Bleeding VTE Information - Inpt Only VTE Present on Admission: No VTE Pharm Prophylaxis ordered?: Yes Patient Problems: Active and Suspected Problems (Last Updated 01/25/18 @ 10:41 by Saima Odonnell) Chest pain (Acute) - Physical Exam General: Alert, Oriented x3, Cooperative, No apparent distress HEENT: Atraumatic, PERRLA, EOMI, Normocephalic Oral: Moist Mucosa Neck: Supple, No JVD, Negative Carotid Bruits Lungs: Clear to auscultation, Normal air movement, No rhonchi, No wheeze, No rales Cardiovascular: Regular rate, Regular Rhythm, Normal S1, No murmurs Abdomen: Bowel Sounds Present, Soft, Non Tender, Non-Distended, No Hepato- splenomegaly, Obese Extremities: No clubbing, No cyanosis, No edema, Capillary Refill Less than 3 Seconds Skin: No rashes, No breakdown Musculoskeletal: No Tenderness to Palpation of Joints or Extremities Lymphatic: No Cervical, Supraclavicular, or Inguinal Adenopathy Neurological: Cranial nerves II-XII grossly intact, Neuro grossly intact, Motor Exam 5/5 strength throughout Psych/Mental Status: Normal Affect, Appropriate, Alert and oriented to time, place, person, mood and affect Vital Signs Temp Pulse Resp BP Pulse Ox 98.7 F 77 16 144/77 H 96 01/30/18 15:43 01/30/18 15:43 01/30/18 15:43 01/30/18 15:43 01/30/18 15:43 Oxygen Delivery Method Room Air Weight: 289 lb Body Mass Index (BMI) 45.2 Laboratory Tests Past 24 Hrs 01/30/18 01/30/18 14:50 14:50 WBC 10.8 RBC 4.35 Hgb 13.8 Hct 41.2 MCV 94.7 MCH 31.7 MCHC 33.5 RDW 12.8 RDW Differential 44.2 H Plt Count 337 MPV 9.7 Immature Gran % (Auto) 0.200 Neut % (Auto) 70.9 H Lymph % (Auto) 22.2 [place] % (Auto) 3.2 Eos % (Auto) 3.0 Baso % (Auto) 0.5 Absolute Neuts (auto) 7.6 Absolute Lymphs (auto) 2.39 Total Counted Not Reportable Sodium 135 L Potassium 3.9 Chloride 101 Carbon Dioxide 24.0 Anion Gap 10 BUN 15 Creatinine 0.83 Estim Creat Clear Calc 78.86 Est GFR (MDRD) Af Amer 93 Est GFR (MDRD) Non-Af 77 BUN/Creatinine Ratio 18.0 Glucose 212 H Calcium 8.7 Total Bilirubin 0.30 Direct Bilirubin 0.08 AST 10 L ALT 16 Alkaline Phosphatase 139 H Troponin I < 0.015 Total Protein 7.6 Albumin 3.0 L Globulin 4.6 H Diagnostic Data Chest X-Ray 01/30/18 15:00 IMPRESSION: No acute abnormality is present. Electronically Signed: Hussein Bashir MD at 15:18 EDT Tel [phone], Service support , Assessment/Plan All Active Problems (Last Updated 01/25/18 @ 10:41 by Saima Odonnell) Chest pain (Acute) Cellulitis of left lower extremity (Acute) NSTEMI (non-ST elevated myocardial infarction) (Acute) 52 y/o with history of NSTEMI s/p 2 stents (09/25) presents with recurrent chest pain for 3 days. 1. Chest pain, rule out ACS * Initial troponin is negative. EKG showed no acute ST changes. * To PCU with telemetry cycle troponins * If troponins trend up, will benefit from a cardiac catheter she is very high risk * If troponins trend up then will have a stress test. * cardiology consult in light of her history of recent NSTEMI wuth stent placement and recurrent chest pain * SL nitroglycerin prn and aspirin 81mg daily 2. CAD s/p stents * on aspirin, brilinta, imdur and statin. * continue these meds 3.TYpe 1 diabetes * on insulin pump. Prefers to remain on her insulin pump as she is a brittle diabetic and her blood sugars fluctuate * continue insulin pump * 4. Hypertension: On lisinopril 20 mg daily, metoprolol 50 mill grams daily and hydrochlorothiazide 25 mg daily 5. Hypothyroidism: On Synthroid 200 mg daily. DVT prophylaxis: Heparin Code Status: Full code. Code Visit OBSV E&M: [id number] Initial observation care L3
[2018-01-30 17:46] LABS: Bedside Glucose 177 mg/dL (70-110)
[2018-01-30] MEDS: Insulin Lispro 100 UNIT/ML INSULN.PEN SC (18:00)
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
--- NOTE | 2018-01-30 18:10 | EKG12_ITS ---
Test Reason : ADMISSION EKG Blood Pressure : / mmHG Vent. Rate : 073 BPM Atrial Rate : 073 BPM P-R Int : 184 ms QRS Dur : 080 ms QT Int : 404 ms P-R-T Axes : 025 -09 027 degrees QTc Int : 445 ms Normal sinus rhythm Low voltage QRS T wave abnormality, consider anterior ischemia Abnormal ECG When compared with ECG of 30-JAN-2018 14:45, MANUAL COMPARISON REQUIRED, DATA IS UNCONFIRMED Confirmed by MARTHA CHANG ([id number]), movie editor NATALIO HESTER ([id number]) on 02/06/2018 11:37:44 AM Referred By: Ana Brady Confirmed By:MARTHA CHANG
[2018-01-30] MEDS: Lisinopril 20 MG Tablet PO (22:42)
[2018-01-30] MEDS: Levothyroxine 100 MCG Tablet 200 MCG PO (22:42)
[2018-01-30] MEDS: TICAGRELOR 90 MG TABLET PO (22:42)
[2018-01-30 23:06] LABS: Bedside Glucose 132 mg/dL (70-110)
[2018-01-31] VITALS (30 sets, daily range): BP systolic 94–176; BP diastolic 46–82; PULSE 72–94; RESP 14–21; TEMP 36.2–36.6; O2SAT 91–99; BMI 45.4
--- NOTE | 2018-01-31 05:55 | EKG12_ITS ---
Test Reason : POST PCI Blood Pressure : / mmHG Vent. Rate : 089 BPM Atrial Rate : 089 BPM P-R Int : 200 ms QRS Dur : 076 ms QT Int : 392 ms P-R-T Axes : 055 027 040 degrees QTc Int : 476 ms Normal sinus rhythm Low voltage QRS Borderline ECG When compared with ECG of 31-JAN-2018 04:54, MANUAL COMPARISON REQUIRED, DATA IS UNCONFIRMED Confirmed by MARTHA CHANG ([id number]), editor sound NATALIO HESTER ([id number]) on 02/06/2018 11:20:46 AM Referred By: Ana Brady Confirmed By:MARTHA CHANG
[2018-01-31] MEDS: TICAGRELOR 90 MG TABLET PO ×2 (06:07→21:18)
[2018-01-31] MEDS: Aspirin E.C. 81 MG Tablet PO (06:07)
[2018-01-31 06:33] LABS: Absolute Neutrophil Count 7.9 X10^3/uL (2.0-7.7); Basophil# 0.04 X10^3/uL; Basophil% 0.3 % (0-1); Eosinophil# 0.41 X10^3/uL; Eosinophils% 3.6 % (0-5); Hematocrit 41.7 % (37-47); Lymphocyte % 22.6 % (19-41); Mean Corp Hgb Conc 33.6 g/gl (32-36); Mean Corpuscular Hgb 32.3 pg (27.0-32.0); Mean Corpuscular Volume 96.1 fL (81-99); Monocyte# 0.55 X10^3/uL; Monocyte% 4.8 % (0-10); Neutrophil # 7.87 X10^3/uL (2.7-7.7); Neutrophil % 68.4 % (47-70); Platelet Count 359 K/mm3 (150-450); RBC Distribution Width CV 12.8 % (11.6-14.6); RBC Distribution Width SD 43.5 fl (35.1-43.9); Red Blood Count 4.34 M/mm3 (4.2-5.4); White Blood Count 11.5 K/mm3 (4.4-11.0)
[2018-01-31 06:37] LABS: Prothrombin Time (Protime)PT. 12.8 SECONDS (11.7-14.9)
[2018-01-31 06:38] LABS: Partial Thromboplast Time 30.9 Seconds (24.1-36.2)
[2018-01-31 06:50] LABS: Bedside Glucose 188 mg/dL (70-110)
[2018-01-31 06:57] LABS: Anion Gap 6 (5-15); BUN 14 mg/dL (7-18); BUN/Creat Ratio 16.3 RATIO (10-20); Calcium,Total 8.9 mg/dL (8.5-10.1); Chloride 99 mmol/L (98-107); Creatinine, Serum 0.86 mg/dL (0.55-1.02); EST Glomerular Filtration Rate 74 mL/min (>60); Est Glom Filt Rate - Afr Amer 90 mL/min (>60); Glucose 177 mg/dL (74-106); Potassium 3.7 mmol/L (3.5-5.1); Sodium Level 136 mmol/L (136-145)
[2018-01-31 07:00] LABS: POSITIVE COUNT NO; POSITIVE DIFFERENTIAL NO; POSITIVE MORPHOLOGY NO
--- NOTE | 2018-01-31 08:31 | STRESSREP ---
Stress Test Report Date: 01/31/2018 Procedure: Pharmacologic stress nuclear imaging study Indications: Chest pain; CAD; PCI Consent: Per the patient Procedure: The patient underwent pharmacologic (Regadenoson) evaluation with a peak heart rate of 92 beats per minute (54 predicted maximal heart rate) and a peak blood pressure of 122/70 mmHg. The baseline ECG demonstrated normal sinus rhythm. The peak pharmacologic ECG demonstrated no obvious ECG changes. There were no cardiac dysrhythmias pretest, during pharmacologic infusion, or recovery. There was no complaint of chest discomfort during pharmacologic infusion or recovery. The examination was discontinued secondary to completion of protocol. Impression: 1. Pharmacologic (Regadenoson) evaluation 2. Peak pharmacologic ECG with no obvious ECG changes. 3. There were no cardiac dysrhythmias pretest, during pharmacologic infusion, or recovery. 4. Nuclear images pending Myocardial perfusion imaging study: Technique: The patient was injected with 14.8 millicuries of technetium 99m Cardiolite and subsequently rest SPECT Cardiolite nuclear imaging was obtained in the horizontal long, vertical long, and short axis views. The patient underwent pharmacologic (Regadenoson) evaluation with a peak heart rate of 92 beats per minute (54 % percent predicted maximal heart rate) and a peak blood pressure of 122/70 mmHg. The patient was injected with 44.7 millicuries of technetium 99m Cardiolite and subsequently stress SPECT Cardiolite nuclear imaging was obtained in the horizontal long, vertical long, and short axis views. A gated Cardiolite study at peak stress was obtained. Interpretation: Rest and stress SPECT Cardiolite nuclear imaging status post realignment, normalization, and attenuation correction demonstrate relative uniform tracer uptake at rest. Status post stress there is notation of diminished tracer uptake in portions of the distal anterior and anterior apical segments. There is end systolic thickening and brightening. The gated Cardiolite study demonstrates myocardial thickening and inward wall motion. The reported LVEF is 86 %. Impression: 1. Stent stress SPECT Cardiolite nuclear imaging demonstrate relative uniform tracer uptake at rest. Status post stress there is notation of diminished tracer uptake in portions of the distal anterior and anteroapical segments concerning for an element of stress-induced myocardial ischemia. 2. The gated Cardiolite study reports an LVEF of 86 %. This note was generated with [employer] software. It may contain incorrect words, spelling, and punctuation that were not noted in checking the note before signing.
--- NOTE | 2018-01-31 08:41 | CASEMGMT ---
According to the [facility] website, the following are in-network tertiary facilities: [facility], [facility], [facility], [facility], [facility], [facility], [place], [facility], and . Sherrill GUARDADO CM
[2018-01-31] MEDS: 0.9% NaCl Peripheral Flush Adult/Peds IV (08:50)
[2018-01-31] MEDS: Metoprolol(XL)Succ 50 MG Tablet PO (08:51)
[2018-01-31] MEDS: Isosorbide Mononitrate 30 MG Tablet PO (08:51)
--- NOTE | 2018-01-31 09:00 | NURSING ---
Called report to Jannie GUARDADO in label stamper
[2018-01-31 09:05] LABS: Bedside Glucose 348 mg/dL (70-110)
[2018-01-31 09:52] LABS: Pregnancy, Serum, hCG Quali. NEGATIVE Negative (0-9 Nonpreg)
--- NOTE | 2018-01-31 11:36 | NURSING ---
Called report to Juan GUARDADO in ICU
--- NOTE | 2018-01-31 12:15 | EKG12_ITS ---
Test Reason : AM EKG Blood Pressure : / mmHG Vent. Rate : 075 BPM Atrial Rate : 075 BPM P-R Int : 188 ms QRS Dur : 078 ms QT Int : 426 ms P-R-T Axes : 009 034 036 degrees QTc Int : 475 ms Normal sinus rhythm Low voltage QRS ST & T wave abnormality, consider anterior ischemia Prolonged QT Abnormal ECG When compared with ECG of 30-JAN-2018 18:30, MANUAL COMPARISON REQUIRED, DATA IS UNCONFIRMED Confirmed by MARTHA CHANG ([id number]), medical editor NATALIO HESTER ([id number]) on 02/06/2018 11:39:18 AM Referred By: Ana Brady Confirmed By:MARTHA CHANG
[2018-01-31 13:00] LABS: Bedside Glucose 465 mg/dL (70-110)
--- NOTE | 2018-01-31 13:41 | CRPHASE1 ---
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:: Earl Stanley Phase I Charge:: Level I - Education Risk Factors/Lifestyle Smoking Status: Never smoker Hx Hypertension: Yes - ON MEDS Hx Diabetes Mellitus Type 1: Yes - AGE 12 VIRUS HARMED PANCREAS Hx Diabetes Mellitus Type 2: Yes - ON INSULIN PUMP Hx Metabolic Disorders: Yes Hx Obesity: Yes Height: 1.7 m Weight:: 131.542 kg BMI: 45.4 Stress: Long-standing, Home/Family ETOH: No Caffeine: Yes Substance Abuse: No Risk Factor for Sedentary Lifestyle: Highest Risk Family History: Family History (Last Reviewed 01/25/18 @ 10:31 by Saima Odonnell) Other CVA (cerebral vascular accident) Diabetes Heart disease Hypertension Thyroid disorder Family History: Diabetes, Heart Disease, Hypertension Past Cardiac Illness: Coronary Artery Disease, Previous PCI w/Stent Phase I Education Given On:: [place], Nutrition, Antiplatelet medication, Diabetes - Type I, Diabetes - Type II Issues Affecting Care:: None Learning Preferences: Verbal Hospital Course Pain Description: Tightness Cardiac Cath Date:: 01/31/18 Medical/Surgical History AL:: Yes Diabetes:: Yes Diabetes Type I:: Yes Hypertension:: Yes Dyslipidemia:: Yes Anxiety:: Yes PTCA:: Yes - 09/25 Discharge/Home/Social Eval Discharge Disposition: Home Marital Status: Patient Lives With::
[2018-01-31] MEDS: Insulin Basal Pump 1 UNIT SC (13:45)
--- NOTE | 2018-01-31 13:45 | CRPHASE1_ITS ---
Patient Data/Charges Financial Administration Officer:: Earl Stanley Phase I Charge:: Level I - Education Risk Factors/Lifestyle Smoking Status: Never smoker Hx Hypertension: Yes - ON MEDS Hx Diabetes Mellitus Type 1: Yes - AGE 12 VIRUS HARMED PANCREAS Hx Diabetes Mellitus Type 2: Yes - ON INSULIN PUMP Hx Metabolic Disorders: Yes Hx Obesity: Yes Height: 1.7 m Weight:: 131.542 kg BMI: 45.4 Stress: Long-standing, Home/Family ETOH: No Caffeine: Yes Substance Abuse: No Risk Factor for Sedentary Lifestyle: Highest Risk Family History: Family History (Last Reviewed 01/25/18 @ 10:31 by Saima Odonnell) Other CVA (cerebral vascular accident) Diabetes Heart disease Hypertension Thyroid disorder Family History: Diabetes, Heart Disease, Hypertension Past Cardiac Illness: Coronary Artery Disease, Previous PCI w/Stent Phase I Education Given On:: [place], Nutrition, Antiplatelet medication, Diabetes - Type I, Diabetes - Type II Issues Affecting Care:: None Learning Preferences: Verbal Hospital Course Pain Description: Tightness Cardiac Cath Date:: 01/31/18 Medical/Surgical History [place]:: Yes Diabetes:: Yes Diabetes Type I:: Yes Hypertension:: Yes Dyslipidemia:: Yes Anxiety:: Yes PTCA:: Yes - 09/25 Discharge/Home/Social Eval Discharge Disposition: Home Marital Status: Patient Lives With::
--- NOTE | 2018-01-31 13:46 | CRPH1.INSTRU ---
General Education CAD and cardiac anatomy and function:: Patient communicates acknowledgment, Family communicates acknowledgment Explanation of diagnoses and procedures:: Patient communicates acknowledgment, Family communicates acknowledgment Sign/Symptoms of MS:: Patient communicates acknowledgment, Family communicates acknowledgment Antiplatelet therapy: Patient communicates acknowledgment, Family communicates acknowledgment Proper use of NTG-SL: Patient communicates acknowledgment, Family communicates acknowledgment Emergency procedures and activation of EMS: Patient communicates acknowledgment, Family communicates acknowledgment Compliance of all prescribed medications: Patient communicates acknowledgment, Family communicates acknowledgment Smoking Patient Nicotine/Smoking Risk Factors Are:: Never smoked Dyslipidemia Recommendations Include:: Lipid profile not available Dyslipidemia Response Code:: Patient communicates acknowledgment, Family communicates acknowledgment Overweight/Obesity Patient Overweight/Obesity Risk Factors Are:: Overweight = 26-29 Recommendations Include:: Weight loss of 5-10% Overweight/Obesity:: Patient communicates acknowledgment, Family communicates acknowledgment Hypertension Recommendations Include:: Maintain BP <130/85, BP <130/80 if diabetic, DASH dietary guidelines, Decrease/maintain normal body weight, Moderation of ETOH Hypertension:: Patient communicates acknowledgment, Family communicates acknowledgment Heart Disease Patient Heart Disease Risk Factors Are:: Family history of heart disease < 65 years old, Previous cardiac event Recommendations Include:: Educated family members of their risk, Educated family members of importance of prevention of heart disease Diabetes Recommendations Include:: Maintain fasting blood sugars 70-110 md/dL, Maintain HgbA1c of 6% or less, Monitor blood sugar as prescribed, Diabetic dietary guidelines, Decrease/maintain body weight Diabetes:: Patient communicates acknowledgment, Family communicates acknowledgment - diabetic since age 12 Metabolic Syndrome Patient Metabolic Syndrome Risk Factors Are [3 of 5]:: Fasting blood sugar > 100 mg/dL, Waist circumference > 35 [female] or 40 [male], High triglyceride >150, Hypertension Recommendations Include:: Reinforce compliance to risk factor modifications, Patient is diabetic Metabolic Syndrome Response Code:: Patient communicates acknowledgment, Family communicates acknowledgment Sedentary Patient Sedentary Risk Factors Are:: Lack of regular exercise - due to torn ACL Stress Recommendations Include:: Identification of stressors, and assessment of coping skills, Stress management techniques Stress Response Code:: Patient communicates acknowledgment, Family communicates acknowledgment
[2018-01-31] MEDS: Insulin Bolus Pump 1 UNIT SC ×2 (13:48→21:18)
--- NOTE | 2018-01-31 13:49 | CRPH1.INST_ITS ---
General Education CAD and cardiac anatomy and function:: Patient communicates acknowledgment, Family communicates acknowledgment Explanation of diagnoses and procedures:: Patient communicates acknowledgment, Family communicates acknowledgment Sign/Symptoms of LA:: Patient communicates acknowledgment, Family communicates acknowledgment Antiplatelet therapy: Patient communicates acknowledgment, Family communicates acknowledgment Proper use of NTG-SL: Patient communicates acknowledgment, Family communicates acknowledgment Emergency procedures and activation of EMS: Patient communicates acknowledgment, Family communicates acknowledgment Compliance of all prescribed medications: Patient communicates acknowledgment, Family communicates acknowledgment Smoking Patient Nicotine/Smoking Risk Factors Are:: Never smoked Dyslipidemia Recommendations Include:: Lipid profile not available Dyslipidemia Response Code:: Patient communicates acknowledgment, Family communicates acknowledgment Overweight/Obesity Patient Overweight/Obesity Risk Factors Are:: Overweight = 26-29 Recommendations Include:: Weight loss of 5-10% Overweight/Obesity:: Patient communicates acknowledgment, Family communicates acknowledgment Hypertension Recommendations Include:: Maintain BP <130/85, BP <130/80 if diabetic, DASH dietary guidelines, Decrease/maintain normal body weight, Moderation of ETOH Hypertension:: Patient communicates acknowledgment, Family communicates acknowledgment Heart Disease Patient Heart Disease Risk Factors Are:: Family history of heart disease < 65 years old, Previous cardiac event Recommendations Include:: Educated family members of their risk, Educated family members of importance of prevention of heart disease Diabetes Recommendations Include:: Maintain fasting blood sugars 70-110 md/dL, Maintain HgbA1c of 6% or less, Monitor blood sugar as prescribed, Diabetic dietary guidelines, Decrease/maintain body weight Diabetes:: Patient communicates acknowledgment, Family communicates acknowledg ment - diabetic since age 12 Metabolic Syndrome Patient Metabolic Syndrome Risk Factors Are [3 of 5]:: Fasting blood sugar > 100 mg/dL, Waist circumference > 35 [female] or 40 [male], High triglyceride >150, Hypertension Recommendations Include:: Reinforce compliance to risk factor modifications, Patient is diabetic Metabolic Syndrome Response Code:: Patient communicates acknowledgment, Family communicates acknowledgment Sedentary Patient Sedentary Risk Factors Are:: Lack of regular exercise - due to torn ACL Stress Recommendations Include:: Identification of stressors, and assessment of coping skills, Stress management techniques Stress Response Code:: Patient communicates acknowledgment, Family communicates acknowledgment
[2018-01-31] MEDS: 0.9% Normal Saline 1,000 ML 150 ML IV (13:50)
[2018-01-31] MEDS: hydroCHLOROthiazide 25 MG Tablet PO (13:54)
[2018-01-31] MEDS: proMETHazine 25 MG Tablet PO (13:57)
[2018-01-31 14:26] LABS: ACT Activated Clotting Time 208 sec (74-137)
[2018-01-31] MEDS: HYDROcodone Bitartrate/Apap 5/325 Tablet PO (14:42)
--- NOTE | 2018-01-31 15:00 | CASEMGMT ---
RN CM Assessment. Intro role of CM to patient in room. Pt is alert and able to participate in RN CM Assessment. Pt states she is independent, uses rollator when in community due to knee injury. Brillinta card given to patient, however she has already been on Brillinta since summer and no difficulties with copays. PCP: Dr. Canchola Prescription coverage: yes [facility]acy: [facility] DME: rollator Transportation: Drives or family drives DC PLAN: Home on discharge.
[2018-01-31 15:56] LABS: Bedside Glucose 250 mg/dL (70-110)
--- NOTE | 2018-01-31 17:50 | PCM.PN.HOSP ---
Patient Problems: Active and Suspected Problems (Last Updated 01/25/18 @ 10:41 by Saima Odonnell) Chest pain (Acute) Subjective: Patient is a 52-year-old female with a history of morbid obesity with BMI of 45, insulin-dependent diabetes mellitus, CAD with recent NSTEMI with stent placement (September 2017), hypertension, dyslipidemia and depression who was admitted for chest pain. Previous cardiac catheter results in September 2017 are as below. [place] [facility] [place] at that time however she was deemed high risk and subsequently underwent PCI of LAD and intermediate ramus system. Patient developed chest pain once again and was admitted yesterday. She underwent a stress test this morning which revealed diminished tracer in the distal anterior and anteroapical segments. As a result, patient is status post cardiac cath today and underwent PCI and angioplasty to LAD. Patient seen post cardiac cath. Does admit that she feels drowsy from medications. Denies any further chest pain. Denies any shortness of breath. Otherwise without any complaints. Vitals/I&O's: Vital Signs Temp Pulse Resp BP Pulse Ox 97.1 F L 92 16 144/82 H 98 01/31/18 08:47 01/31/18 12:43 01/31/18 08:47 01/31/18 08:47 01/31/18 13:40 Oxygen Delivery Method Room Air Weight: 131.542 kg Body Mass Index (BMI) 45.4 Intake and Output for Last 24 Hours 01/29/18 01/30/18 01/31/18 23:59 23:59 23:59 Intake Total 720 / 720 0 / 0 Balance 720 / 720 0 / 0 General: Alert, Oriented x3, Cooperative HEENT: Normocephalic Neck: Supple Lungs: Clear to auscultation, Normal air movement Cardiovascular: Regular rate Abdomen: Bowel Sounds Present, Soft, Non Tender Extremities: No edema, Capillary Refill Less than 3 Seconds Skin: No rashes, No breakdown Neurological: Cranial nerves II-XII grossly intact Psych/Mental Status: Normal Affect - Slightly drowsy however awakens to verbal stimuli and answers questions appropriately, Appropriate Laboratory Results 01/30/18 18:09: Troponin I < 0.015 01/30/18 20:15: Troponin I < 0.015 01/30/18 22:41: POC Glucose 132 H 01/31/18 06:00: WBC 11.5 H, RBC 4.34, Hgb 14.0, Hct 41.7, MCV 96.1, MCH 32.3 H, MCHC 33.6, RDW 12.8, RDW Differential 43.5, Plt Count 359, MPV 10.0, Immature Gran % (Auto) 0.300, Neut % (Auto) 68.4, Lymph % (Auto) 22.6, [place] % (Auto) 4.8, Eos % (Auto) 3.6, Baso % (Auto) 0.3, Absolute Neuts (auto) 7.9 H, Absolute Lymphs (auto) 2.60, Total Counted Not Reportable 01/31/18 06:00: Sodium 136, Potassium 3.7, Chloride 99, Carbon Dioxide 31.0, Anion Gap 6, BUN 14, Creatinine 0.86, Estim Creat Clear Calc 76.10, Est GFR (MDRD) Af Amer 90, Est GFR (MDRD) Non-Af 74, BUN/Creatinine Ratio 16.3, Glucose 177 H, Calcium 8.9 01/31/18 06:00: PT 12.8, INR 1.0, APTT 30.9 01/31/18 06:00: Serum , Qual NEGATIVE 01/31/18 06:05: POC Glucose 188 H 01/31/18 08:53: POC Glucose 348 H 01/31/18 11:37: Activated Clotting Time 208 H 01/31/18 12:52: POC Glucose 465 H* 01/31/18 15:49: POC Glucose 250 H Current Medications Acetaminophen (Tylenol) 650 mg PO Q6H PRN PRN PRN Reason: Mild Pain (0-2/10) Hydrocodone Bitart/Acetaminophen (Candia 5mg-325mg) 1 tablet PO 4X/DAY PRN Last Admin: 01/31/18 14:42 Dose: 1 tablet Aspirin (Ecotrin) 81 mg PO DAILY@0800 [facility] Last Admin: 01/31/18 06:07 Dose: 81 mg Atropine Sulfate () 0.5 mg IV UD PRN PRN Reason: HR <50 bpm Bupropion HCl (Wellbutrin Xl) 300 mg PO DAILY [facility] Last Admin: 01/31/18 13:51 Dose: Not Given Diazepam (Valium) 5 mg PO Q6H PRN PRN PRN Reason: BACK SPASMS/ANXIETY Hydrochlorothiazide (Hctz) 25 mg PO DAILY [facility] Last Admin: 01/31/18 13:54 Dose: 25 mg Sodium Chloride () 1,000 mls @ 0 mls/hr IV .Q0M VIPIN Sodium Chloride () 1,000 mls @ 150 mls/hr IV .Q6H40M [facility] Stop: 01/31/18 18:49 Last Admin: 01/31/18 13:50 Dose: 150 mls/hr Sodium Chloride () 250 mls @ 15 mls/hr IV .[id number] PRN PRN Reason: SALINE FLUSH Sodium Chloride () 500 mls @ 15 mls/hr IV .[id number] PRN PRN Reason: SALINE FLUSH Insulin Aspart (Pump, Basal) 1 unit SC Q24 [facility] Last Admin: 01/31/18 13:45 Dose: 1.55 u Insulin Aspart (Pump, Bolus) 1 unit SC ACHS [facility] Last Admin: 01/31/18 13:48 Dose: 1 unit Isosorbide Mononitrate (Imdur) 30 mg PO QAM [facility] Last Admin: 01/31/18 08:51 Dose: 30 mg Labetalol HCl (Trandate) 5 mg IV X1 PRN PRN Reason: SBP > 160 when pulling sheath Stop: 02/02/18 12:09 Levothyroxine Sodium (Synthroid) 200 mcg PO QHS [facility] Last Admin: 01/30/18 22:42 Dose: 200 mcg Lisinopril (Zestril) 20 mg PO QHS [facility] Last Admin: 01/30/18 22:42 Dose: 20 mg Magnesium Hydroxide (Milk Of Magnesia) 30 ml PO DAILY PRN PRN PRN Reason: Constipation Metoclopramide HCl (Reglan) 5 mg IV Q6H PRN PRN Reason: NAUSEA/VOMITING Metoprolol Succinate (Toprol Xl (Beta Tobi)) 50 mg PO DAILY [facility] Last Admin: 01/31/18 08:51 Dose: 50 mg Nitroglycerin (Nitrostat) 0.4 mg SUBLINGUAL Q5M PRN PRN Reason: CARDIAC/CHEST PAIN Promethazine HCl (Phenergan Tablet) 25 mg PO Q6H PRN PRN PRN Reason: NAUSEA Last Admin: 01/31/18 13:57 Dose: 25 mg Sodium Chloride () 5 - 30 ml IV UD PRN PRN Reason: SALINE FLUSH Last Admin: 01/31/18 08:50 Dose: 10 ml Sodium Chloride () 500 ml IV BOLUS PRN PRN Reason: VASO-VAGAL PROTOCOL Ticagrelor (Brilinta) 90 mg PO BID VIPIN Last Admin: 01/31/18 06:07 Dose: 90 mg Medical Necessity - Tobacco Use Smoking Status: Never smoker Assessment/Plan All Active Problems (Last Updated 01/25/18 @ 10:41 by Saima Odonnell) Chest pain (Acute) Cellulitis of left lower extremity (Acute) NSTEMI (non-ST elevated myocardial infarction) (Acute) Patient is a 52-year-old female with a history of morbid obesity with BMI of 45, hypothyroidism, insulin-dependent diabetes mellitus, CAD with recent NSTEMI with stent placement (September 2017), hypertension, dyslipidemia and depression who was admitted for chest pain. 1. Chest pain Status post cardiac cath with PCI/angioplasty (distal LAD, according to nursing records, awaiting full cardiac cath results). Continue with dual antiplatelet therapy with aspirin and Brilinta, nitroglycerin, VICKY inhibitor and beta-tobi. Appreciate cardiology. Unable to tolerate statin therapy. Check lipid panel in the morning to determine other options of anti-hyperlipidemic agents. 2. CAD As above. 3. Insulin-dependent diabetes mellitus Continue with current insulin pump and continue to monitor with Accu-Cheks. Apparently patient is a brittle diabetic. 4. Hypertension Blood pressure is adequate at this time. Continue to monitor and adjust medications as needed. 5. Hypothyroidism On Synthroid. 6. Depression Aware. On bupropion. 7. DVT prophylaxis SCDs and ambulation. Avoid anticoagulation given recent cardiac cath (utilizing anticoagulants) plus current dual antiplatelet therapy. Anticipate possible discharge home tomorrow when okay with cardiology. Code Visit Inpatient E&M: 02034 [facility] L[facility]
--- NOTE | 2018-01-31 19:43 | PCM.PN.CARD ---
Subjectve: The patient underwent diagnostic cardiac catheterization earlier this day. She was found to have progression of CAD in the LAD and intermediate ramus distribution. She subsequently underwent repeat PTCA/stent of the LAD and PTCA of the intermediate ramus. She has been resting comfortably in the ICU with no acute cardiovascular symptoms or adverse events. Objective: Vital Signs Temp Pulse Resp BP Pulse Ox 97.9 F 79 15 97/60 94 01/31/18 12:50 01/31/18 18:00 01/31/18 18:00 01/31/18 18:00 01/31/18 18:00 Oxygen Delivery Method Room Air Weight: 290 lb Body Mass Index (BMI) 45.4 Intake and Output for Last 24 Hours 01/29/18 01/30/18 01/31/18 23:59 23:59 23:59 Intake Total 720 / 720 875 / 875 Output Total 1400 / 1400 Balance 720 / 720 -525 / -525 General: Awake, Alert, Oriented x 3, Cooperative, No Acute Distress, Obese HEENT: Atraumatic, Normocephalic, PERRL, EOMI, Sclera Non Icteric Oral: Moist Mucosa Neck: Supple, Good ROM, No JVD Lungs: Clear to auscultation Cardiovascular: Regular Rhythm, Normal S1, Normal S2 Vascular: No Carotid Bruits, Normal Femoral Pulses, Normal Radial Pulses Abdomen: Bowel Sounds Present, Soft, Non Tender, Obese Extremities: No edema Neurological: No Focal Motor or Sensory Deficit Psych/Mental Status: Appropriate, Normal Affect 01/30/18 20:15: Troponin I < 0.015 01/31/18 06:00: WBC 11.5 H, RBC 4.34, Hgb 14.0, Hct 41.7, MCV 96.1, MCH 32.3 H, MCHC 33.6, RDW 12.8, RDW Differential 43.5, Plt Count 359, MPV 10.0, Immature Gran % (Auto) 0.300, Neut % (Auto) 68.4, Lymph % (Auto) 22.6, [place] % (Auto) 4.8, Eos % (Auto) 3.6, Baso % (Auto) 0.3, Absolute Neuts (auto) 7.9 H, Total Counted Not Reportable 01/31/18 06:00: Sodium 136, Potassium 3.7, Chloride 99, Carbon Dioxide 31.0, Anion Gap 6, BUN 14, Creatinine 0.86, Est GFR (MDRD) Af Amer 90, Est GFR (MDRD) Non-Af 74, BUN/Creatinine Ratio 16.3, Glucose 177 H, Calcium 8.9 01/31/18 06:00: PT 12.8, INR 1.0, APTT 30.9 Rhythm: Sinus rhythm Medical Necessity - Tobacco Use Smoking Status: Never smoker Assessment/Plan 1. CAD status post PCI The patient has a history of CAD. She did undergo rule out OH protocol. Her cardiac enzymes were negative. She had a pharmacologic stress nuclear imaging study. It demonstrated concerns of myocardial ischemia in the anterior and anteroapical distributions. She underwent diagnostic cardiac catheterization. She was found to have progression of disease in the LAD and intermediate ramus distributions. She underwent subsequent PTCA/stent to the LAD and PTCA of the intermediate ramus. She will need to continue medical management and follow-up. 3. Hyperlipidemia She will need aggressive risk factor evaluation and care. 4. Hypertension her blood pressure will be followed. She will continue medical management. 5. Diabetes mellitus She will continue under the care of internal medicine for her diabetes mellitus. Comment: The above was discussed and reviewed with the patient and her spouse. This note was generated with [employer] dictation software. It may contain incorrect words, spelling, and punctuation that were not noted in checking the note before signing.
[2018-01-31] MEDS: Levothyroxine 100 MCG Tablet 200 MCG PO (21:18)
[2018-01-31] MEDS: Lisinopril 20 MG Tablet PO (21:18)
[2018-02-01] VITALS (15 sets, daily range): BP systolic 94–120; BP diastolic 39–62; PULSE 81–90; RESP 14–20; TEMP 36.4–36.7; O2SAT 90–96
[2018-02-01 00:06] LABS: Bedside Glucose 158 mg/dL (70-110)
[2018-02-01 00:56] LABS: Bedside Glucose 147 mg/dL (70-110)
[2018-02-01] MEDS: 0.9% Normal Saline 500 ML IV.SOLN. IV (02:06)
[2018-02-01] MEDS: Acetaminophen 325 MG Tablet 650 MG PO (02:49)
[2018-02-01 06:33] LABS: Hematocrit 33.3 % (37-47); Mean Corpuscular Hgb 31.7 pg (27.0-32.0); Mean Platelet Vol. 10.1 fl (6.2-12.0); Platelet Count 282 K/mm3 (150-450); RBC Distribution Width CV 12.7 % (11.6-14.6); Red Blood Count 3.47 M/mm3 (4.2-5.4); White Blood Count 12.3 K/mm3 (4.4-11.0)
[2018-02-01 06:34] LABS: Scan Indicated on CBC? Y/N NO
--- NOTE | 2018-02-01 06:41 | NURSING ---
gave 500 cc bolus overnight for hypotension per protocol. butterfly stick for am labs. hgb dropped from 13.8 to 11 this am.
[2018-02-01 07:16] LABS: Bedside Glucose 236 mg/dL (70-110)
[2018-02-01 07:26] LABS: Anion Gap 10 (5-15); BUN 19 mg/dL (7-18); BUN/Creat Ratio 22.8 RATIO (10-20); Calcium,Total 8.1 mg/dL (8.5-10.1); Chloride 102 mmol/L (98-107); Cholesterol 132 mg/dL (200); Creatinine, Serum 0.83 mg/dL (0.55-1.02); EST Glomerular Filtration Rate 77 mL/min (>60); Est Glom Filt Rate - Afr Amer 93 mL/min (>60); Estimated Creatinine Clearance 78.86 ml/min; Glucose 246 mg/dL (74-106); High Density Lipoprotein 45 mg/dL; Potassium 3.9 mmol/L (3.5-5.1); Sodium Level 136 mmol/L (136-145); Triglycerides 91 mg/dL; Very Low Density Lipoprotein 18 mg/dL (5-40)
--- NOTE | 2018-02-01 07:34 | PCM.WORK.EX ---
Work/School Excuse Work/School Excuse for:: Patient Please excuse this person from:: Work From: 01/30/18 through: 02/07/18 Restrictions: Light Duty
--- NOTE | 2018-02-01 07:35 | PCM.DC.SUM ---
Discharge Date and Diagnosis - Problem List Patient Problems: Active and Suspected Problems (Last Updated 01/25/18 @ 10:41 by aSima Odonnell) Chest pain (Acute) Date of Admission: 01/30/18 Date of Discharge: 02/01/18 - Only if okay with cardiology - Primary Discharge Diagnosis Active and Suspected Problems (Last Updated 01/25/18 @ 10:41 by Saima Odonnell) Chest pain (Acute) - Secondary Discharge Diagnosis Chronic Problems (Last Updated 01/25/18 @ 10:41 by Saima Odonnell) CAD in [place] artery (Chronic) S/P PTCA (percutaneous transluminal coronary angioplasty) (Chronic) S/P coronary artery stent placement (Chronic) [facility] from [facility] to [facility] on 09/19/17 for multivessel CAD: PCI and VALENTINE of LAD and proximal ramus intermedius per Dr. Gutierrez NSTEMI (non-ST elevated myocardial infarction) (Chronic 09/18/17) Atherosclerotic heart disease of [place] coronary artery without angina pectoris (Chronic) Tsfer from [facility] to [facility] on 09/19/17 for multivessel CAD: PCI and VALENTINE of LAD and proximal ramus intermedius per Dr. Gutierrez History of left heart catheterization (Chronic) 09/19/[address] Toscano @ [facility] Hypertension (Chronic) Hyperlipidemia (Chronic) At goal No adjustment Diabetic retinopathy associated with type 2 diabetes mellitus (Chronic) Diabetes mellitus type 2 in obese (Chronic) Over correcting at bedtime. Will change 8pm correction to 1-50. Needs higher basal at night and may need to alter other basals as we continue to adjust but will continue to monitor. Increase 12m by 0.2 Hospital Course and Treatment Imaging Results: Stress Test Report Date: 01/31/2018 Procedure: Pharmacologic stress nuclear imaging study Indications: Chest pain; CAD; PCI Consent: Per the patient Procedure: The patient underwent pharmacologic (Regadenoson) evaluation with a peak heart rate of 92 beats per minute (54 predicted maximal heart rate) and a peak blood pressure of 122/70 mmHg. The baseline ECG demonstrated normal sinus rhythm. The peak pharmacologic ECG demonstrated no obvious ECG changes. There were no cardiac dysrhythmias pretest, during pharmacologic infusion, or recovery. There was no complaint of chest discomfort during pharmacologic infusion or recovery. The examination was discontinued secondary to completion of protocol. Impression: 1. Pharmacologic (Regadenoson) evaluation 2. Peak pharmacologic ECG with no obvious ECG changes. 3. There were no cardiac dysrhythmias pretest, during pharmacologic infusion, or recovery. 4. Nuclear images pending Myocardial perfusion imaging study: Technique: The patient was injected with 14.8 millicuries of technetium 99m Cardiolite and subsequently rest SPECT Cardiolite nuclear imaging was obtained in the horizontal long, vertical long, and short axis views. The patient underwent pharmacologic (Regadenoson) evaluation with a peak heart rate of 92 beats per minute (54 % percent predicted maximal heart rate) and a peak blood pressure of 122/70 mmHg. The patient was injected with 44.7 millicuries of technetium 99m Cardiolite and subsequently stress SPECT Cardiolite nuclear imaging was obtained in the horizontal long, vertical long, and short axis views. A gated Cardiolite study at peak stress was obtained. Interpretation: Rest and stress SPECT Cardiolite nuclear imaging status post realignment, normalization, and attenuation correction demonstrate relative uniform tracer uptake at rest. Status post stress there is notation of diminished tracer uptake in portions of the distal anterior and anterior apical segments. There is end systolic thickening and brightening. The gated Cardiolite study demonstrates myocardial thickening and inward wall motion. The reported LVEF is 86 %. Impression: 1. Stent stress SPECT Cardiolite nuclear imaging demonstrate relative uniform tracer uptake at rest. Status post stress there is notation of diminished tracer uptake in portions of the distal anterior and anteroapical segments concerning for an element of stress-induced myocardial ischemia. 2. The gated Cardiolite study reports an LVEF of 86 %. This note was generated with [employer] dictation software. It may contain incorrect words, spelling, and punctuation that were not noted in checking the note before signing. Additional CC's: Angela Canchola Cardiology status post PCI Underwent repeat PTCA/stent of the LAD and PTCA of the intermediate ramus. She has been resting comfortably in the ICU with no acute cardiovascular symptoms or adverse events. Operations: None Procedures: Cardiac catheterization - Underwent repeat PTCA/stent of the LAD and PTCA of the intermediate ramus. Summary of Care Provided: The patient is a 52 year old F [] Patient Problems: Active and Suspected Problems (Last Updated 01/25/18 @ 10:41 by Saima Odonnell) Chest pain (Acute) - Physical Exam General: Alert, Oriented x3, Cooperative HEENT: Atraumatic, PERRLA, EOMI Oral: Moist Mucosa Neck: Supple, No JVD, Trachea Midline Lungs: Normal air movement - Bases due to poor effort, No rhonchi, No wheeze, No rales Cardiovascular: Normal S1, Normal S2, No murmurs Abdomen: Soft, Non Tender, Non-Distended Extremities: No clubbing, No edema, Tenderness - Tenderness in right groin over cath site, no hematoma but extensive bruising noted Skin: No rashes, - - In the right groin after procedure no hematoma Lymphatic: No Cervical, Supraclavicular, or Inguinal Adenopathy Neurological: Cranial nerves II-XII grossly intact, Neuro grossly intact Psych/Mental Status: Normal Affect, Appropriate Vital Signs Temp Pulse Resp BP Pulse Ox 98.0 F 84 17 103/41 L 94 02/01/18 07:00 02/01/18 07:00 02/01/18 07:00 02/01/18 07:00 02/01/18 07:00 Oxygen Delivery Method Room Air Weight: 131.542 kg Body Mass Index (BMI) 45.4 Intake and Output for Last 24 Hours 01/30/18 01/31/18 02/01/18 23:59 23:59 23:59 Intake Total 720 / 720 875 / 875 823 / 823 Output Total 1400 / 1400 650 / 650 Balance 720 / 720 -525 / -525 173 / 173 Laboratory Tests Past 24 Hrs 01/31/18 01/31/18 02/01/18 06:00 11:37 06:03 WBC 12.3 H RBC 3.47 L Hgb 11.0 L Hct 33.3 L MCV 96.0 MCH 31.7 MCHC 33.0 RDW 12.7 RDW Differential 43.0 Plt Count 282 MPV 10.1 Activated Clotting Time 208 H Sodium Potassium Chloride Carbon Dioxide Anion Gap BUN Creatinine Estim Creat Clear Calc Est GFR (MDRD) Af Amer Est GFR (MDRD) Non-Af BUN/Creatinine Ratio Glucose Calcium Triglycerides Cholesterol LDL Cholesterol VLDL Cholesterol HDL Cholesterol Serum , Qual NEGATIVE 02/01/18 06:03 WBC RBC Hgb Hct MCV MCH MCHC RDW RDW Differential Plt Count MPV Activated Clotting Time Sodium 136 Potassium 3.9 Chloride 102 Carbon Dioxide 24.0 Anion Gap 10 BUN 19 H Creatinine 0.83 Estim Creat Clear Calc 78.86 Est GFR (MDRD) Af Amer 93 Est GFR (MDRD) Non-Af 77 BUN/Creatinine Ratio 22.8 H Glucose 246 H Calcium 8.1 L Triglycerides 91 Cholesterol 132 LDL Cholesterol 69 VLDL Cholesterol 18 HDL Cholesterol 45 Serum , Qual POC Glucose 02/01/18 02/01/18 01/31/18 07:05 00:48 21:16 POC Glucose 236 H 147 H 158 H 01/31/18 01/31/18 01/31/18 15:49 12:52 08:53 POC Glucose 250 H 465 H* 348 H Discharge Diet: 1800 Calorie Control Diet Discharge Activity: May not drive while taking narcotic pain medications., May Shower Return to work on:: 02/07/18 Lifting Restrict to (lbs):: 5 Keep extremity elevated above heart level: Right Leg Call your doctor if your incision/area has: Continuous Slow Oozing, Sudden Increased Bleeding, Increased Pain/ Swelling, Increased Redness, Foul Smelling Discharge Call your doctor if you observe: Fever of 101 or Higher, Inability to urinate, Shortness of breath, Chest pain Cleanse incision/area with: Soap & Water Home Medications: Medications to take at Discharge buPROPion XL [Wellbutrin Xl] 300 mg PO DAILY 02/23/14 insulin lispro (U- 100) 100 unit/mL subcutaneous solution See Rx Instructions SC PRN 10/05/17 isosorbide mononitrate ER 30 mg tablet,extended release 24 hr 30 mg PO QAM #90 tab 10/05/17 lisinopril 20 mg tablet 20 mg PO QDAY #90 tab 10/05/17 metoprolol succinate ER 50 mg tablet,extended release 24 hr 50 mg PO QDAY #90 tab 10/05/17 ticagrelor 90 mg tablet 90 mg PO BID #180 tab 10/05/17 levothyroxine 200 mcg tablet 200 mcg PO QDAY #90 tab 11/20/17 proMETHazine tablet [Phenergan tablet] 25 mg PO Q6H PRN PRN #10 tab 12/04/17 Aspirin E.C. [Ecotrin] 81 mg PO DAILY 01/30/18 Hydrochlorothiazide [Hctz] 25 mg PO DAILY 01/30/18 Hydrocodone/Acetaminophen [[place] 5-325 Tablet] 1 tab PO 4X/DAY 01/30/18 Acetaminophen [Tylenol Tablet] 650 mg PO Q6H PRN PRN tablet 02/01/18 Nitroglycerin [Nitrostat] 0.4 mg SUBLINGUAL Q5M PRN #120 tablet 02/01/18 Following Prescrptions Were Given to Patient: Nitroglycerin [Nitrostat] 0.4 mg SUBLINGUAL Q5M PRN #120 tablet PRN Reason: Cardiac/Chest Pain Other Amb Orders: Cardiac Rehab Evaluation and Assessment Location: None Selected Phase II, Outpatient Cardiac Rehab Location: None Selected Consult: Nutrition/ Dietitian Location: None Selected Primary Care Physician: Angela Canchola MD [Primary Care Provider] - Please Follow Up With: Anthony Pham MD When: When 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 Disposition: Home with Home Health - If requires Patient Condition:: Good Medical Necessity - Tobacco Use Smoking Status: Never smoker Meaningful Use Info Meaningful Use Diagnoses (Choose all that apply): AMI - AMI Aspirin given w/in 24hrs of arrival?: Yes ASA at discharge?: Yes Statins at discharge?: No Reason statins not ordered:: Allergy Goyo/ARB at discharge?: Yes Beta Tobi at discharge?: Yes Done w/ Acute NV measure.: Yes Code Visit Patient is a 52-year-old female with a history of morbid obesity with BMI of 45, insulin-dependent diabetes mellitus on insulin pump, CAD with recent NSTEMI with stent placement (September 2017), hypertension, dyslipidemia and depression who was admitted for chest pain. Patient was transferred to [facility] [place] for evaluation for CABG at that time however she was deemed high risk and subsequently underwent PCI of LAD and intermediate ramus system. Patient developed chest pain once again and was admitted yesterday. She underwent a stress test which revealed diminished tracer in the distal anterior and anteroapical segments. As a result, patient is status post cardiac cath and underwent PCI and angioplasty to LAD. Patient is allergic to statin therapy ahen ce why not ordered and will continue Brilinta,Aspirin, beta-tobi, lisinopril and to follow-up with cardiac rehab as an outpatient. Patient will only be discharged after patient has her Renteria removed, has voided, and if okay with cardiology. Gas site seems to be bruised and slightly tender however no hematoma is noted. Once patient ambulates since he is if she needs home health patient will be discharged home. Medications reviewed with the patient. Risks, benefits, alternatives, side effects, potential complications and dangers of medications discussed. Patient wishes to utilize these agents despite risk. A signed medical consent/advisement form regarding narcotic medications and a side medication agreement are located in the patient's chart. Chart is dictated with analog circuit designer software. Errors may occur in dictation that may change providers meaning. This note was generated with [employer] dictation software. It may contain incorrect words, spelling, and punctuation that were not noted in checking the note before signing. Inpatient E&M: 11268 [facility] Hosp
--- NOTE | 2018-02-01 07:39 | DS.PCM_ITS ---
Discharge Date and Diagnosis - Problem List Patient Problems: Active and Suspected Problems (Last Updated 01/25/18 @ 10:41 by Saima Odonnell) Chest pain (Acute) Date of Admission: 01/30/18 Date of Discharge: 02/01/18 - Only if okay with cardiology - Primary Discharge Diagnosis Active and Suspected Problems (Last Updated 01/25/18 @ 10:41 by Saima Odonnell) Chest pain (Acute) - Secondary Discharge Diagnosis Chronic Problems (Last Updated 01/25/18 @ 10:41 by Saima Odonnell) CAD in [place] artery (Chronic) S/P PTCA (percutaneous transluminal coronary angioplasty) (Chronic) S/P coronary artery stent placement (Chronic) [facility]fer from [facility] to [facility] on 09/19/17 for multivessel CAD: PCI and VALENTINE of LAD and proximal ramus intermedius per Dr. Gutierrez NSTEMI (non-ST elevated myocardial infarction) (Chronic 09/18/17) Atherosclerotic heart disease of [place] coronary artery without angina pectoris (Chronic) Tsfer from [facility] to [facility] on 09/19/17 for multivessel CAD: PCI and VALENTINE of LAD and proximal ramus intermedius per Dr. Gutierrez History of left heart catheterization (Chronic) 09/19/[address] Toscano @ [facility] Hypertension (Chronic) Hyperlipidemia (Chronic) At goal No adjustment Diabetic retinopathy associated with type 2 diabetes mellitus (Chronic) Diabetes mellitus type 2 in obese (Chronic) Over correcting at bedtime. Will change 8pm correction to 1-50. Needs higher basal at night and may need to alter other basals as we continue to adjust but will continue to monitor. Increase 12m by 0.2 Hospital Course and Treatment Imaging Results: Stress Test Report Date: 01/31/2018 Procedure: Pharmacologic stress nuclear imaging study Indications: Chest pain; CAD; PCI Consent: Per the patient Procedure: The patient underwent pharmacologic (Regadenoson) evaluation with a peak heart rate of 92 beats per minute (54 predicted maximal heart rate) and a peak blood pressure of 122/70 mmHg. The baseline ECG demonstrated normal sinus rhythm. The peak pharmacologic ECG demonstrated no obvious ECG changes. There were no cardiac dysrhythmias pretest, during pharmacologic infusion, or recovery. There was no complaint of chest discomfort during pharmacologic infusion or recovery. The examination was discontinued secondary to completion of protocol. Impression: 1. Pharmacologic (Regadenoson) evaluation 2. Peak pharmacologic ECG with no obvious ECG changes. 3. There were no cardiac dysrhythmias pretest, during pharmacologic infusion, or recovery. 4. Nuclear images pending Myocardial perfusion imaging study: Technique: The patient was injected with 14.8 millicuries of technetium 99m Cardiolite and subsequently rest SPECT Cardiolite nuclear imaging was obtained in the horizontal long, vertical long, and short axis views. The patient underwent pharmacologic (Regadenoson) evaluation with a peak heart rate of 92 beats per minute (54 % percent predicted maximal heart rate) and a peak blood pressure of 122/70 mmHg. The patient was injected with 44.7 millicuries of technetium 99m Cardiolite and subsequently stress SPECT Cardiolite nuclear imaging was obtained in the horizontal long, vertical long, and short axis views. A gated Cardiolite study at peak stress was obtained. Interpretation: Rest and stress SPECT Cardiolite nuclear imaging status post realignment, normalization, and attenuation correction demonstrate relative uniform tracer uptake at rest. Status post stress there is notation of diminished tracer uptake in portions of the distal anterior and anterior apical segments. There is end systolic thickening and brightening. The gated Cardiolite study demonstrates myocardial thickening and inward wall motion. The reported LVEF is 86 %. Impression: 1. Stent stress SPECT Cardiolite nuclear imaging demonstrate relative uniform tracer uptake at rest. Status post stress there is notation of diminished tracer uptake in portions of the distal anterior and anteroapical segments concerning for an element of stress-induced myocardial ischemia. 2. The gated Cardiolite study reports an LVEF of 86 %. This note was generated with [employer] dictation software. It may contain incorrect words, spelling, and punctuation that were not noted in checking the note before signing. Additional CC's: Angela Canchola Cardiology status post PCI Underwent repeat PTCA/stent of the LAD and PTCA of the intermediate ramus. She has been resting comfortably in the ICU with no acute cardiovascular symptoms or adverse events. Operations: None Procedures: Cardiac catheterization - Underwent repeat PTCA/stent of the LAD and PTCA of the intermediate ramus. Summary of Care Provided: The patient is a 52 year old F [] Patient Problems: Active and Suspected Problems (Last Updated 01/25/18 @ 10:41 by Saima Odonnell) Chest pain (Acute) - Physical Exam General: Alert, Oriented x3, Cooperative HEENT: Atraumatic, PERRLA, EOMI Oral: Moist Mucosa Neck: Supple, No JVD, Trachea Midline Lungs: Normal air movement - Bases due to poor effort, No rhonchi, No wheeze, No rales Cardiovascular: Normal S1, Normal S2, No murmurs Abdomen: Soft, Non Tender, Non-Distended Extremities: No clubbing, No edema, Tenderness - Tenderness in right groin over cath site, no hematoma but extensive bruising noted Skin: No rashes, - - In the right groin after procedure no hematoma Lymphatic: No Cervical, Supraclavicular, or Inguinal Adenopathy Neurological: Cranial nerves II-XII grossly intact, Neuro grossly intact Psych/Mental Status: Normal Affect, Appropriate Vital Signs Temp Pulse Resp BP Pulse Ox 98.0 F 84 17 103/41 L 94 02/01/18 07:00 02/01/18 07:00 02/01/18 07:00 02/01/18 07:00 02/01/18 07:00 Oxygen Delivery Method Room Air Weight: 131.542 kg Body Mass Index (BMI) 45.4 Intake and Output for Last 24 Hours 01/30/18 01/31/18 02/01/18 23:59 23:59 23:59 Intake Total 720 / 720 875 / 875 823 / 823 Output Total 1400 / 1400 650 / 650 Balance 720 / 720 -525 / -525 173 / 173 Laboratory Tests Past 24 Hrs 01/31/18 01/31/18 02/01/18 06:00 11:37 06:03 WBC 12.3 H RBC 3.47 L Hgb 11.0 L Hct 33.3 L MCV 96.0 MCH 31.7 MCHC 33.0 RDW 12.7 RDW Differential 43.0 Plt Count 282 MPV 10.1 Activated Clotting Time 208 H Sodium Potassium Chloride Carbon Dioxide Anion Gap BUN Creatinine Estim Creat Clear Calc Est GFR (MDRD) Af Amer Est GFR (MDRD) Non-Af BUN/Creatinine Ratio Glucose Calcium Triglycerides Cholesterol LDL Cholesterol VLDL Cholesterol HDL Cholesterol Serum , Qual NEGATIVE 02/01/18 06:03 WBC RBC Hgb Hct MCV MCH MCHC RDW RDW Differential Plt Count MPV Activated Clotting Time Sodium 136 Potassium 3.9 Chloride 102 Carbon Dioxide 24.0 Anion Gap 10 BUN 19 H Creatinine 0.83 Estim Creat Clear Calc 78.86 Est GFR (MDRD) Af Amer 93 Est GFR (MDRD) Non-Af 77 BUN/Creatinine Ratio 22.8 H Glucose 246 H Calcium 8.1 L Triglycerides 91 Cholesterol 132 LDL Cholesterol 69 VLDL Cholesterol 18 HDL Cholesterol 45 Serum , Qual POC Glucose 02/01/18 02/01/18 01/31/18 07:05 00:48 21:16 POC Glucose 236 H 147 H 158 H 01/31/18 01/31/18 01/31/18 15:49 12:52 08:53 POC Glucose 250 H 465 H* 348 H Discharge Diet: 1800 Calorie Control Diet Discharge Activity: May not drive while taking narcotic pain medications., May Shower Return to work on:: 02/07/18 Lifting Restrict to (lbs):: 5 Keep extremity elevated above heart level: Right Leg Call your doctor if your incision/area has: Continuous Slow Oozing, Sudden Increased Bleeding, Increased Pain/ Swelling, Increased Redness, Foul Smelling Discharge Call your doctor if you observe: Fever of 101 or Higher, Inability to urinate, Shortness of breath, Chest pain Cleanse incision/area with: Soap & Water Home Medications: Medications to take at Discharge buPROPion XL [Wellbutrin Xl] 300 mg PO DAILY 02/23/14 insulin lispro (U- 100) 100 unit/mL subcutaneous solution See Rx Instructions SC PRN 10/05/17 isosorbide mononitrate ER 30 mg tablet,extended release 24 hr 30 mg PO QAM #90 tab 10/05/17 lisinopril 20 mg tablet 20 mg PO QDAY #90 tab 10/05/17 metoprolol succinate ER 50 mg tablet,extended release 24 hr 50 mg PO QDAY #90 tab 10/05/17 ticagrelor 90 mg tablet 90 mg PO BID #180 tab 10/05/17 levothyroxine 200 mcg tablet 200 mcg PO QDAY #90 tab 11/20/17 proMETHazine tablet [Phenergan tablet] 25 mg PO Q6H PRN PRN #10 tab 12/04/17 Aspirin E.C. [Ecotrin] 81 mg PO DAILY 01/30/18 Hydrochlorothiazide [Hctz] 25 mg PO DAILY 01/30/18 Hydrocodone/Acetaminophen [[place] 5-325 Tablet] 1 tab PO 4X/DAY 01/30/18 Acetaminophen [Tylenol Tablet] 650 mg PO Q6H PRN PRN tablet 02/01/18 Nitroglycerin [Nitrostat] 0.4 mg SUBLINGUAL Q5M PRN #120 tablet 02/01/18 Following Prescrptions Were Given to Patient: Nitroglycerin [Nitrostat] 0.4 mg SUBLINGUAL Q5M PRN #120 tablet PRN Reason: Cardiac/Chest Pain Other Amb Orders: Cardiac Rehab Evaluation and Assessment Location: None Selected Phase II, Outpatient Cardiac Rehab Location: None Selected Consult: Nutrition/ Dietitian Location: None Selected Primary Care Physician: Angela Canchola MD [Primary Care Provider] - Please Follow Up With: Anthony Pham MD When: When scanning supervisor wishes to see Disposition: Home with Home Health - If requires Patient Condition:: Good Medical Necessity - Tobacco Use Smoking Status: Never smoker Meaningful Use Info Meaningful Use Diagnoses (Choose all that apply): AMI - AMI Aspirin given w/in 24hrs of arrival?: Yes ASA at discharge?: Yes Statins at discharge?: No Reason statins not ordered:: Allergy Goyo/ARB at discharge?: Yes Beta Tobi at discharge?: Yes Done w/ Acute ID measure.: Yes Code Visit Patient is a 52-year-old female with a history of morbid obesity with BMI of 45, insulin-dependent diabetes mellitus on insulin pump, CAD with recent NSTEMI with stent placement (September 2017), hypertension, dyslipidemia and depression who was admitted for chest pain. Patient was transferred to [facility] for evaluation for CABG at that time however she was deemed high risk and subsequently underwent PCI of LAD and intermediate ramus system. Patient developed chest pain once again and was admitted yesterday. She underwent a stress test which revealed diminished tracer in the distal anterior and anteroapical segments. As a result, patient is status post cardiac cath and underwent PCI and angioplasty to LAD. Patient is allergic to statin therapy ahen ce why not ordered and will continue Brilinta,Aspirin, beta-tobi, lisinopril and to follow-up with cardiac rehab as an outpatient. Patient will only be discharged after patient has her Renteria removed, has voided, and if okay with cardiology. Gas site seems to be bruised and slightly tender however no hematoma is noted. Once patient ambulates since he is if she needs home health patient will be discharged home. Medications reviewed with the patient. Risks, benefits, alternatives, side effects, potential complications and dangers of medications discussed. Patient wishes to utilize these agents despite risk. A signed medical consent/advisement form regarding narcotic medications and a side medication agreement are located in the patient's chart. Chart is dictated with [employer] software. Errors may occur in dictation that may change providers meaning. This note was generated with [employer] dictation software. It may contain incorrect words, spelling, and punctuation that were not noted in checking the note before signing. Inpatient E&M: [id number] Disch Hosp
[2018-02-01] MEDS: Insulin Bolus Pump 1 UNIT SC (08:30)
[2018-02-01 08:35] LABS: Bedside Glucose 227 mg/dL (70-110)
--- NOTE | 2018-02-01 08:35 | CL.I_ITS ---
Patient Name: ODILIA CAREY Study Date: 01/31/2018 Performing: Earl Stanley MD Ht: 67 inches 170 cm : 1965 Wt: 291.4 lbs 132 kg Age: 52 Gender: female BSA: 2.37 PROCEDURE(S) PERFORMED [id number] W OR WO PTCA, SINGLE CORONARY ARTERY [id number], CORONARY OR GRAFT, INITIAL VESSEL [id number], SINGLE CORONARY ARTERY CLINICAL PROFILE AND CO-MORBIDITIES Indications: ACS <= 24 hrs, New Onset Angina <= 2 months, Stable Known CAD Heart Failure: None Stress/Imaging Stress Test w/SPECT MPI: Yes Result: Positive Intermediate Risk Stress Test with S PECT MPI: Positive Intermediate Risk Angina Classification Anginal Classification w/in 2 Weeks: CCS III CAD Presentations: Unstable angina. Comorbidities/Risk Factors: Hypertension Dyslipidemia Prior PCI Diabetes Mellitus: Diabetes Therapy: Insulin CONCLUSIONS Successful PTCA/VALENTINE distal LAD ISR with a 2.25 x 12 Promus Synergy at 14 todd; 75%-->0%, no dissection . Successful PCI with PTCA to the ostial OM with a 2.0 x 8 Balloon; 75%-->10%, no dissetion. Negative FFR of mid RCA; FFR=0.94 RECOMMENDATIONS Highly recommend quitting all tobacco products Follow up with primary terrazzo grinder Risk factor modification ASA Indefinitley Plavix for at least 12 months Routine post interventional care Refer for Outpatient Cardiac Rehab Manual sheath removal per protocol Follow up with Dr. Pham Attempted Mynx closore failed; direct manual pressure held for 30 min, followed by Femostop placed in analytical lab analyst. R radial removed in analytical lab analyst without complications. DESCRIPTION OF PROCEDURE The patient arrived to the procedure lab. The risks and benefits of the procedure as well as a full d escription of our services here and current unavailability of surgical backup were fully explained to the patient and/or their significant other prior to the catheterization. The Timeout was completed, verifying the correct patient and procedure. The patient's procedural site was prepped and draped in the usual fashion. Local anesthetic was given subcutaneously to right groin region with Lidocaine 2%. Local anesthetic was given subcutaneously to right radial region with Lidocaine 2%. Local anesthetic was given subcutaneously to right groin region with Lidocaine 2% Using a modified Seldinger techniqu e,arterial access was obtained via the right radial artery, a 6Fr sheath was inserted., arterial acce ss was obtained via the right femoral artery, a 6Fr sheath was inserted. Left Coronary Artery selecti ve angiography was performed in multiple views using a 5 Fr. 4.0 [place] catheter. Right Coronary Artery selective angiography was then performed in multiple views using a 5 Fr. 4.0 [place] ca theter. Left Ventriculography was performed in GIL projection using a 4 Fr. Pigtail catheter. LV to A O pullback pressures were then recorded.The images were reviewed and options discussed. A decision wa s then made to proceed with an Intervention, IVUS or other adjunct procedure. EBU 3.75 Guide catheter was inserted and engaged into the LCA. EBU 3.5 Guide catheter was inserte d and engaged into the LCA. BMW Guide wire was advanced to the LAD. 2.0 x 8 Emerge Balloon catheter w as inserted. Balloon catheter was advanced across lesion in the LAD, distal. PTCA balloon inflated at 8 atms for 35 secs. 2.25 x 12 Synergy Drug Eluting stent was inserted. Angiogram performed pre stent deployment. Drug Eluting stent was advanced across the lesion in the LAD, distal. Angiogram performe d post stent deployment. BMW (2) Guide wire was advanced to the 1st OM. 2.0 x 8 Emerge Balloon cathet er was inserted. PTCA balloon inflated at 8 atms for 8 secs. PTCA balloon inflated at 6 atms for 25 s ecs. HS II Guide catheter was inserted and engaged into the RCA. The FFR/iFR wire was inserted. Adeno sine was then given per protocol. Pressures and FFR/iFR were then recorded. FFR Ratio Baseline: 0.99 FFR Ratio post Adenosine: 0.94 Contrast was injected through the sheath and the Right Iliac and Femoral artery were assessed for possible closure device. The arterial sheath was pulled a nd a Mynx closure device was deployed for hemostasis. The arterial sheath was pulled and a TR Band wa s applied for hemostasis Right radial 16cc air inserted. The arterial sheath was pulled and manual co mpression applied until hemostasis is achieved. right femoral art. fem stop applied at 60mmHg INTERVENTION INFORMATION LESION SITE: LAD (Distal) Lesion Complexity: Non-High/Non-C, lesion at bifurcation: No, thrombus present: No, lesion length: 12 mm, culprit lesion: Yes Pre Stenosis: 75 % Pre intervention ALYSSA flow: 3 PROCEDURE: Drug Eluting Stent with pre dilatation. Post Stenosis: 0 % Post intervention ALYSSA flow: 3 Lesion Devices: Blunt .014 BMW [place] Straight 190cm Medtronic 6 Fr EBU3.5 100cm Guide Catheter Saroj Sci EMERGE MR 2.00x08 BALLOON Saroj Sci Synergy MR VALENTINE 2.25x12 LESION SITE: 1st OM (Ostial) Lesion Complexity: Non-High/Non-C, lesion at bifurcation: Yes, thrombus present: No, lesion length: 8 mm, culprit lesion: No Pre Stenosis: 75 % Pre intervention ALYSSA flow: 3 PROCEDURE: Balloon Angioplasty Post Stenosis: 10 % Post intervention ALYSSA flow: 3 Lesion Devices: Saroj Sci EMERGE MR 2.00x08 BALLOON Blunt .014 BMW Wingate Straight 190cm LESION SITE: RCA (Mid) Lesion Complexity: High/C, lesion at bifurcation: No, thrombus present: No, lesion length: 24 mm, cul prit lesion: No Pre Stenosis: 50 % Pre intervention ALYSSA flow: 3 PROCEDURE: FFR 50 % Post intervention ALYSSA flow: 3 Lesion Devices: Annex Productstronic 6 Fr HSII 100cm Guide Catheter IGT Devices ( [facility]) Coronary FFR Wire COMPLICATIONS No Complications PROCEDURE MEDICATIONS Versed 1 mg IV Versed 1 mg IV Fentanyl 50 mcg IV Versed 1 mg IV Fentanyl 50 mcg IV Oxygen: 2 L/min via nasal cannula Heparin diluted in 23cc Heparinized saline. Patient given 10cc IA of this solution. 01/31/2018 10:38 :44 Heparin 6000 unit(s) IV 01/31/2018 11:10:38 Nitro 200 mcg IC 01/31/2018 11:16:37 Nitro 200 mcg IC 01/31/2018 11:16:37 Nitro 200 mcg IC 01/31/2018 11:24:51 Verapamil 2.5mg, Ntg 100mcgs, 2000 units of Heparin diluted in 23cc Heparinized saline. Patient give n 10cc IA of this solution. 01/31/2018 10:38:44 Zofran 4 mg IV 01/31/2018 10:41:05 Zofran 4 mg IV 01/31/2018 11:42:23 IV Fluids: .9 NaCl increased to WO ml/hr 01/31/2018 10:43:26 SUMMARY OF HEMODYNAMIC DATA Time Signed By Earl Stanley MD On 01/31/2018 15:43:23 Earl Stanley MD
--- NOTE | 2018-02-01 08:35 | CL.D_ITS ---
Patient Name: ODILIA CAREY Study Date: 01/31/2018 Performing: Anthony Pham MD Ht: 67 inches 170 cm : 1965 Wt: 291.4 lbs 132 kg Age: 52 Gender: female BSA: 2.37 PROCEDURE(S) PERFORMED [id number]/COR/LV XI50-AQD W OR WO PTCA, SINGLE CORONARY ARTERY [id number], CORONARY OR GRAFT, INITIAL VESSEL [id number], SINGLE CORONARY ARTERY CLINICAL PROFILE AND INDICATIONS Indications: ACS <= 24 hrs, New Onset Angina <= 2 months, Stable Known CAD, Worsening Angina, Nicky pected CAD Heart Failure: None Stress/Imaging Stress Test w/SPECT MPI: Yes Result: Positive Intermediate RiskStress Test with SP ECT MPI: Positive Intermediate Risk Angina Classification Anginal Classification w/in 2 Weeks: CCS III CAD Presentations: Unstable angina. Unstable angina. Comorbidities/Risk Factors: Hypertension Dyslipidemia Prior PCI Diabetes Mellitus: Diabetes Therapy: Insulin CONCLUSIONS Elevated Left Ventricular End Diastolic Pressure Normal LV size, wall motion,and systolic function LVEF: by LV gram 65 % [place] Multivessel CAD RECOMMENDATIONS Risk factor modification Medical therapy Referred for immediate PCI DESCRIPTION OF PROCEDURE The patient arrived to the procedure lab. The risks and benefits of the procedure as well as a full d escription of our services here and current unavailability of surgical backup were fully explained to the patient and/or their significant other prior to the catheterization. The Timeout was completed, verifying the correct patient and procedure. The patient's procedural site was prepped and draped in the usual fashion. Local anesthetic was given subcutaneously to right groin region with Lidocaine 2%. Local anesthetic was given subcutaneously to right radial region with Lidocaine 2%. Local anesthetic was given subcutaneously to right groin region with Lidocaine 2%. Using a modified Seldinger techniq ue, arterial access was obtained via the right radial artery, a 6Fr sheath was inserted., arterial ac cess was obtained via the right femoral artery, a 6Fr sheath was inserted. Left Coronary Artery alfie ctive angiography was performed in multiple views using a 5 Fr. 4.0 [place] catheter. Right Coronary Artery selective angiography was then performed in multiple views using a 5 Fr. 4.0 [place] ca theter. Left Ventriculography was performed in GIL projection using a 4 Fr. Pigtail catheter. LV to A O pullback pressures were then recorded.Contrast was injected through the sheath and the Right Iliac and Femoral artery were assessed for possible closure device.The arterial sheath was pulled and a Myn x closure device was deployed for hemostasis. The arterial sheath was pulled and a TR Band was applie d for hemostasis Right radial 16cc air inserted. The arterial sheath was pulled and manual compressio n applied until hemostasis is achieved. right femoral art. fem stop applied at 60mmHg CORONARY ANGIOGRAPHY DOMINANCE: Right Dominant LEFT HEART ASSESSMENT Left Ventricular Ejection Fraction: by LV Gram 65 % Normal LV wall motion Elevated Left Ventricular End Diastolic Pressure LVEDP: 35 mmHg LEFT MAIN: Angiographically normal LEFT ANTERIOR DECENDING ARTERY: PROX LAD: Previously placed stent is patent MID LAD: Previously placed stent is patent, S/P stent: 95 % Stenosis DISTAL LAD: 50 % Stenosis CIRCUMFLEX ARTERY: PROX CIRC: Long: Diffuse: 50 % Stenosis OM 1: Proximal - Pre stent: 95 % Stenosis, Proximal - Previously placed stent is patent RIGHT CORONARY ARTERY: MID RCA: 25-50 % Stenosis VALVE FINDINGS: Normal Aortic Valve function Normal Mitral Valve function AORTIC ROOT: Angiographically normal COMPLICATIONS No Complications PROCEDURE MEDICATIONS Versed 1 mg IV Versed 1 mg IV Fentanyl 50 mcg IV Versed 1 mg IV Fentanyl 50 mcg IV Oxygen: 2 L/min via nasal cannula Heparin diluted in 23cc Heparinized saline. Patient given 10cc IA of this solution. 01/31/2018 10:38 :44 Heparin 6000 unit(s) IV 01/31/2018 11:10:38 Nitro 200 mcg IC 01/31/2018 11:16:37 Nitro 200 mcg IC 01/31/2018 11:16:37 Nitro 200 mcg IC 01/31/2018 11:24:51 Verapamil 2.5mg, Ntg 100mcgs, 2000 units of Heparin diluted in 23cc Heparinized saline. Patient give n 10cc IA of this solution. 01/31/2018 10:38:44 Zofran 4 mg IV 01/31/2018 10:41:05 Zofran 4 mg IV 01/31/2018 11:42:23 IV Fluids: .9 NaCl increased to WO ml/hr 01/31/2018 10:43:26 SUMMARY OF HEMODYNAMIC DATA Time Signed By Anthony Pham MD On 01/31/2018 20:06:03 Anthony Pham MD
--- NOTE | 2018-02-01 09:46 | PN.CARD_ITS ---
Subjectve: The patient is awake and alert. She denies any ongoing chest discomfort or difficulty breathing. Objective: Vital Signs Temp Pulse Resp BP Pulse Ox 98.0 F 84 17 103/41 L 94 02/01/18 07:00 02/01/18 07:00 02/01/18 07:00 02/01/18 07:00 02/01/18 07:00 Oxygen Delivery Method Room Air Weight: 290 lb Body Mass Index (BMI) 45.4 Intake and Output for Last 24 Hours 01/30/18 01/31/18 02/01/18 23:59 23:59 23:59 Intake Total 720 / 720 875 / 875 823 / 823 Output Total 1400 / 1400 650 / 650 Balance 720 / 720 -525 / -525 173 / 173 General: Awake, Alert, Oriented x 3, Cooperative, No Acute Distress, Obese HEENT: Atraumatic, Normocephalic, PERRL, EOMI, Sclera Non Icteric Oral: Moist Mucosa Neck: Supple, Good ROM, No JVD Lungs: Clear to auscultation Cardiovascular: Regular Rhythm, Normal S1, Normal S2 Abdomen: Bowel Sounds Present, Soft, Non Tender Extremities: No edema, - - Right inguinal area: Ecchymoses: No obvious hematoma Neurological: No Focal Motor or Sensory Deficit Psych/Mental Status: Appropriate, Normal Affect 02/01/18 06:03: WBC 12.3 H, RBC 3.47 L, Hgb 11.0 L, Hct 33.3 L, MCV 96.0, MCH 31.7, MCHC 33.0, RDW 12.7, RDW Differential 43.0, Plt Count 282, MPV 10.1 02/01/18 06:03: Sodium 136, Potassium 3.9, Chloride 102, Carbon Dioxide 24.0, Anion Gap 10, BUN 19 H, Creatinine 0.83, Est GFR (MDRD) Af Amer 93, Est GFR (MDRD) Non-Af 77, BUN/Creatinine Ratio 22.8 H, Glucose 246 H, Calcium 8.1 L, Triglycerides 91, Cholesterol 132, LDL Cholesterol 69, VLDL Cholesterol 18, HDL Cholesterol 45 Rhythm: Sinus rhythm EKG: Sinus rhythm; no acute ECG changes Medical Necessity - Tobacco Use Smoking Status: Never smoker Assessment/Plan 1. CAD status post PCI The patient has a history of CAD. She did undergo rule out [place] protocol. Her cardiac enzymes were negative. She had a pharmacologic stress nuclear imaging study. It demonstrated concerns of myocardial ischemia in the anterior and anteroapical distributions. She underwent diagnostic cardiac catheterization. She was found to have progression of disease in the LAD and intermediate ramus distributions. She underwent subsequent PTCA/stent to the LAD and PTCA of the intermediate ramus. She will need to continue medical management and follow-up. This will include a previously scheduled outpatient cardiovascular visit on 02/05/2018. 3. Hyperlipidemia She will need aggressive risk factor evaluation and care. 4. Hypertension her blood pressure will be followed. She will continue medical management. 5. Diabetes mellitus She will continue under the care of internal medicine for her diabetes mellitus. Comment: The above was discussed and reviewed with the patient and Dr. Stanley. This note was generated with [employer] dictation software. It may contain incorrect words, spelling, and punctuation that were not noted in checking the note before signing.
[2018-02-01] MEDS: Aspirin E.C. 81 MG Tablet PO (09:55)
[2018-02-01] MEDS: TICAGRELOR 90 MG TABLET PO (09:55)
[2018-02-01] MEDS: Isosorbide Mononitrate 30 MG Tablet PO (09:56)
[2018-02-01] MEDS: Metoprolol(XL)Succ 50 MG Tablet PO (09:56)
[2018-02-01] MEDS: hydroCHLOROthiazide 25 MG Tablet PO (09:56)
[2018-02-01] MEDS: buPROPion (XL) 300 MG TABLET.XL PO (09:57)
[2018-02-01] MEDS: Insulin Basal Pump 1 UNIT SC (10:00)
--- NOTE | 2018-02-01 10:00 | EKG12_ITS ---
Test Reason : AM EKG Blood Pressure : / mmHG Vent. Rate : 082 BPM Atrial Rate : 082 BPM P-R Int : 188 ms QRS Dur : 080 ms QT Int : 402 ms P-R-T Axes : 044 024 040 degrees QTc Int : 469 ms Normal sinus rhythm Low voltage QRS Septal infarct , age undetermined Abnormal ECG When compared with ECG of 31-JAN-2018 12:44, MANUAL COMPARISON REQUIRED, DATA IS UNCONFIRMED Confirmed by MARTHA CHANG ([id number]), photographic editor NATALIO HESTER ([id number]) on 02/06/2018 11:21:29 AM Referred By: Ana Brady Confirmed By:MARTHA CHANG
--- NOTE | 2018-02-01 12:04 | PCM.DC ---
- Discharge Diagnoses Current Active Problems: Current Active and Chronic Problems (Last Reviewed 01/25/18 @ 10:31 by Saima Odonnell) Chest pain (Acute) CAD in [place] artery (Chronic) S/P PTCA (percutaneous transluminal coronary angioplasty) (Chronic) You will use the following diet at home:: Calorie/Carbohydrate Controlled (specify 1200, 1400, etc), Cardiac Your food should be the consistency of: Regular Discharge Activity: May not drive while taking narcotic pain medications., May Shower Return to work on:: 02/07/18 May resume sexual activity in: 1-2 weeks Weight Bearing Status: Weight bearing as tolerated Keep extremity elevated above heart level: Right Leg Call your doctor if your incision/area has: Continuous Slow Oozing, Sudden Increased Bleeding, Increased Pain/ Swelling, Increased Redness, Foul Smelling Discharge Call your doctor if you observe: Fever of 101 or Higher, Inability to urinate, Shortness of breath, Chest pain Cleanse incision/area with: Soap & Water Allergies/Adverse Reactions: Allergies adhesive Allergy (Verified 01/30/18 14:46) Rash bacitracin [From Neosporin (hya-qld-apqld)] Allergy (Verified 01/30/18 14:46) Rash bacitracin zinc [From Neosporin (oya-uyp-qiybr)] Allergy (Verified 01/30/18 14:46) Rash neomycin sulfate [From Neosporin (uqe-iji-mamqa)] Allergy (Verified 01/30/18 14:46) Rash polymyxin B [From Neosporin (shw-juk-ewxpb)] Allergy (Verified 01/30/18 14:46) Rash Mjhjcmx-Dxa-Zrt Reductase Inhibitor Allergy (Verified 01/30/18 14:46) MUSCLE WEAKNESS morphine Adverse Reaction (Verified 01/30/18 14:46) Other Medications to take at Discharge buPROPion XL [Wellbutrin Xl] 300 mg PO DAILY 02/23/14 insulin lispro (U- 100) 100 unit/mL subcutaneous solution See Rx Instructions SC PRN 10/05/17 isosorbide mononitrate ER 30 mg tablet,extended release 24 hr 30 mg PO QAM #90 tab 10/05/17 lisinopril 20 mg tablet 20 mg PO QDAY #90 tab 10/05/17 metoprolol succinate ER 50 mg tablet,extended release 24 hr 50 mg PO QDAY #90 tab 10/05/17 ticagrelor 90 mg tablet 90 mg PO BID #180 tab 10/05/17 levothyroxine 200 mcg tablet 200 mcg PO QDAY #90 tab 11/20/17 proMETHazine tablet [Phenergan tablet] 25 mg PO Q6H PRN PRN #10 tab 12/04/17 Aspirin E.C. [Ecotrin] 81 mg PO DAILY 01/30/18 Hydrochlorothiazide [Hctz] 25 mg PO DAILY 01/30/18 Hydrocodone/Acetaminophen [[place] 5-325 Tablet] 1 tab PO 4X/DAY 01/30/18 Acetaminophen [Tylenol Tablet] 650 mg PO Q6H PRN PRN tablet 02/01/18 Nitroglycerin [Nitrostat] 0.4 mg SUBLINGUAL Q5M PRN #120 tablet 02/01/18 The following prescriptions were given: Nitroglycerin [Nitrostat] 0.4 mg SUBLINGUAL Q5M PRN #120 tablet PRN Reason: Cardiac/Chest Pain Orders to be completed after discharge: Cardiac Rehab Evaluation and Assessment Location: None Selected Phase II, Outpatient Cardiac Rehab Location: None Selected Consult: Nutrition/ Dietitian Location: None Selected Primary Care Physician: Angela Canchola MD [Primary Care Provider] - Please follow up with your Primary Care Physician in: 1-2 weeks Test Results: Test results from this visit will be discussed in further detail at your follow-up appointment, if applicable. 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
== END 2018-02-01 12:50 | disposition home or self-care (01) | DRG 247 ==
LOC: ED 15:01 → PCU 15:45 → ICU 01-31 11:19
PROVIDERS: Family Medicine; Internal Medicine Cardiovascular Disease; Admitting Provider Student in an Organized Health Care Education/Training Program; Emergency Provider Emergency Medicine; Family Provider Internal Medicine; PCP Internal Medicine; Visit Provider Internal Medicine
DX: I25.110 Atherosclerotic heart disease of native coronary artery with unstable angina pectoris (principal); Z68.42 Body mass index [BMI] 45.0-49.9, adult; E11.319 Type 2 diabetes mellitus with unspecified diabetic retinopathy without macular edema; Z96.41 Presence of insulin pump (external) (internal); E03.9 Hypothyroidism, unspecified; E66.01 Morbid (severe) obesity due to excess calories; E78.5 Hyperlipidemia, unspecified; Z87.891 Personal history of nicotine dependence; I25.2 Old myocardial infarction; Z95.5 Presence of coronary angioplasty implant and graft; Z79.4 Long term (current) use of insulin; F32.9 Major depressive disorder, single episode, unspecified; I10 Essential (primary) hypertension
CPT/HCPCS: 36415; 71045; 78452; 80048; 80061; 80076; 82962; 84484; 84703; 85025; 85027; 85347; 85610; 85730; 92920; 92928; 93005; 93017; 93458; 93571; 99152; 99153; 99284; A9500; C1760; J0153; J7030; J7040; A4216; C1725; C1769; C1874; C1887; C1894; C9600; J2405; J2785; Q9967

== ENCOUNTER 2019-01-23 08:19 | Inpatient (IN) | payer BC, SELFPAY ==
[2018-01-31 13:46] VITALS: BMI 45.4
[2018-07-03 10:07] VITALS: BMI 45.8
[2019-01-23] VITALS (11 sets, daily range): BP systolic 120–145; BP diastolic 60–76; PULSE 78–103; RESP 12–25; TEMP 36.6–37.2; O2SAT 95–99; BMI 49.6
--- NOTE | 2019-01-23 08:36 | RAD_ITS ---
STUDY: X-RAY CHEST REASON FOR EXAM: Female, 53 years old. Chest pain. TECHNIQUE: Single AP portable view of the chest. COMPARISON: Comparison is made with prior study January 30, 2018. FINDINGS: EKG electrodes are seen. Scattered calcified granulomas. The lungs are clear and expanded. There is no demonstrated pleural abnormality. Normal size heart. Normal mediastinum and vanessa. Normal visualized pulmonary arteries. Normal visualized aortic arch and descending thoracic aorta. There are diffuse degenerative changes of the visualized thoracic spine. Normal visualized ribs, clavicles, and shoulders. There is no demonstrated abnormality of the visualized soft tissue structures of the upper abdomen. RAD/Chest 1 View (Portable) IMPRESSION: Stable examination. No acute abnormality is seen. Electronically Signed: Hussein Bashir, at 8:56 EDT , Service support ,
--- NOTE | 2019-01-23 08:36 | EKG12_ITS ---
Test Reason : CP Blood Pressure : / mmHG Vent. Rate : 117 BPM Atrial Rate : 117 BPM P-R Int : 180 ms QRS Dur : 078 ms QT Int : 344 ms P-R-T Axes : 055 -33 046 degrees QTc Int : 479 ms Sinus tachycardia with occasional Premature ventricular complexes Left axis deviation Low voltage QRS Inferior infarct , age undetermined Abnormal ECG Confirmed by BHUMIKA BECERRIL, YOEL ([id number]), features editor RAGHU DIAMOND ([id number]) on 01/30/2019 11:01:26 AM Referred By: DANELLE/ADELAIDA Confirmed By:BOONE BAI MD
[2019-01-23 09:47] LABS: Absolute Lymphocyte Count 1.42 X10^3/uL (0.83-4.51); Absolute Neutrophil Count 9.6 X10^3/uL (2.0-7.7); Basophil# 0.06 X10^3/uL; Basophil% 0.5 % (0-1); Eosinophil# 0.31 X10^3/uL; Eosinophils% 2.6 % (0-5); Hematocrit 38.2 % (37-47); Hemoglobin 12.5 g/dL (12.0-15.0); Lymphocyte # 1.42 X10^3/ul (4.0); Mean Corp Hgb Conc 32.7 g/dL (32-36); Mean Corpuscular Hgb 29.2 pg (27.0-32.0); Mean Corpuscular Volume 89.3 fL (81-99); Mean Platelet Vol. 9.5 fl (6.2-12.0); Monocyte# 0.38 X10^3/uL; Monocyte% 3.2 % (0-10); NRBC Flagged by Analyzer 0 % (0-5); Neutrophil # 9.55 X10^3/uL (2.7-7.7); Neutrophil % 81.1 % (47-70); Platelet Count 378 K/mm3 (150-450); RBC Distribution Width CV 14.9 % (11.6-14.6); RBC Distribution Width SD 48.8 fl (35.1-43.9); Red Blood Count 4.28 M/mm3 (4.2-5.4); White Blood Count 11.8 K/mm3 (4.4-11.0)
[2019-01-23 09:59] LABS: Anion Gap 8 (5-15); BUN 20 mg/dL (7-18); Calcium,Total 8.9 mg/dL (8.5-10.1); Chloride 102 mmol/L (98-107); Creatinine, Serum 1.11 mg/dL (0.55-1.02); EST Glomerular Filtration Rate 55 mL/min (>60); Est Glom Filt Rate - Afr Amer 67 mL/min (>60); Estimated Creatinine Clearance 56.13 ml/min; Glucose 372 mg/dL (74-106); Potassium 4.3 mmol/L (3.5-5.1); Sodium Level 135 mmol/L (136-145)
[2019-01-23] MEDS: Aspirin 81 MG TAB.CHEW 324 MG PO (09:59)
[2019-01-23] MEDS: proMETHazine 25 MG/ML Syringe 6.25 MG IV (09:59)
[2019-01-23] MEDS: fentaNYL 100 MCG/2 ML Ampul 50 MCG IV (09:59)
--- NOTE | 2019-01-23 10:13 | ED.DCSUM_ITS ---
- ER Visit Summary Date of Service: 01/23/19 Chief Complaint: Chest pain History of Present Illness: The patient is a 53 F with chest pain that started at 645 this morning. It is midsternal and radiates to her right shoulder. Feels like her prior LA. She has a history of LA in September 2017. She also underw ent cardiac catheterization in January 2018 and had an LAD lesion. She has a total of 4 stents. She is compliant with aspirin and Brilinta. She is known to Dr. Stanley and Dorcas. Patient denies any other associated or new symptoms. She took one nitro and it seemed to help somewhat. She took one aspirin today. Physical Examination: Afebrile and vital signs unremarkable except for heart rate of 103. Heart regular rhythm. Lungs clear. Abdomen soft. Extremities nontender with no edema. Test Results: EKG showed sinus rhythm at a rate of 117. Nonspecific changes. No acute ischemia or infarction pattern. White count 11.8, sodium 135, glucose 372, BUN 20, creatinine 1.11, troponin 0 0.038. Chest x-ray stable, chronic changes. Emergency Department Course and Treatment: Patient treated with aspirin, Phenergan, fentanyl. On reevaluation, she is pain-free. Work-up so far is unremarkable. Troponin is 0.038 and will need rechecked. She is appropriate for inpatient evaluation and the hospitalist was contacted. Treatment Plan: As above Disposition: Admission Impression: 1. Chest pain This note was generated with [employer] dictation software. It may contain incorrect words, spelling, and punctuation that were not noted in review of the chart prior to signing ED Disposition - Plan for ED Patient: Referrals: Angela Canchola MD [Primary Care Provider] -
--- NOTE | 2019-01-23 10:51 | HP.PCM_ITS ---
History of Present Illness Date of Admission: 01/23/19 Chief Complaint: Chest pain The patient is a 53 year old F with a PMH as below who presents with chest pain that started this morning around 6 AM. She woke up and went to the bathroom and as she was walking back to bed that when she had her chest pain. She took 2 Tylenol thinking it could be muscular skeletal, however when it did not resolve she presented to the ER. She states that it felt very similar to her previous chest pain when she had her NSTEMI and had stents placed about a year ago mother this time it was on the right side of her chest instead of the center of her chest. It did go to her right shoulder but denies any shortness of breath or lightheadedness with the episode. She currently states that her chest pain has resolved with fentanyl that was given to her in the ER, and in the ER she had a troponin which was negative at 0.038, and an EKG with nonischemic changes. She has been on her aspirin and her Brilinta since her last stent in January. Past Medical History Past Medical History (Chronic Problems): Chronic Problems (Last Updated 02/05/18 @ 13:11 by Kayla Gipson) CAD in [place] artery (Chronic) S/P PTCA (percutaneous transluminal coronary angioplasty) (Chronic) S/P coronary artery stent placement (Chronic) Tsfer from [facility] to [facility] on 09/19/17 for multivessel CAD: PCI and VALENTINE of LAD and proximal ramus intermedius per Dr. Gutierrez NSTEMI (non-ST elevated myocardial infarction) (Chronic 09/18/17) Atherosclerotic heart disease of [place] coronary artery without angina pectoris (Chronic) Tsfer from [facility] to [facility] on 09/19/17 for multivessel CAD: PCI and VALENTINE of LAD and proximal ramus intermedius per Dr. Gutierrez History of left heart catheterization (Chronic) 09/19/[address] Toscano @ [facility] Hypertension (Chronic) Hyperlipidemia (Chronic) At goal No adjustment Diabetic retinopathy associated with type 2 diabetes mellitus (Chronic) Diabetes mellitus type 2 in obese (Chronic) Over correcting at bedtime. Will change 8pm correction to 1-50. Needs higher basal at night and may need to alter other basals as we continue to adjust but will continue to monitor. Increase 12m by 0.2 Medical History: Medical History (Last Updated 02/05/18 @ 13:11 by Kayla Gipson) NSTEMI (non-ST elevated myocardial infarction) (Chronic) Onset Date: 09/18/17 I21.4 Atherosclerotic heart disease of [place] coronary artery without angina pectoris (Chronic) I25.10 Tsfer from [facility] to [facility] on 09/19/17 for multivessel CAD: PCI and VALENTINE of LAD and proximal ramus intermedius per Dr. Gutierrez Hypertension (Chronic) I10 Hyperlipidemia (Chronic) E78.5 At goal No adjustment Anxiety F41.9 Cataracts, bilateral H26.9 Neuropathy G62.9 Type 2 diabetes mellitus E11.9 Dx :1977 Last exacerbation : DKA : 1987 Hypoglycemic episode : never DKA : 1988 Vision abnormalities H53.9 Bone fracture T14.8XXA Allergies adhesive Allergy (Verified 01/23/19 08:19) Rash bacitracin [From Neosporin ([id number]-cgv-stufk)] Allergy (Verified 01/23/19 08:19) Rash bacitracin zinc [From Neosporin (ctt-eqc-gkcgz)] Allergy (Verified 01/23/19 08:19) Rash neomycin sulfate [From Neosporin (byk-epc-gjdvx)] Allergy (Verified 01/23/19 08:19) Rash polymyxin B [From Neosporin (dcr-blf-jyotp)] Allergy (Verified 01/23/19 08:19) Rash Nljjlrx-Fag-Aie Reductase Inhibitor Allergy (Verified 01/23/19 08:19) MUSCLE WEAKNESS morphine Adverse Reaction (Verified 01/23/19 08:19) Other Home Medications: Ambulatory Orders Medication Instructions Recorded buPROPion XL [Wellbutrin Xl] 300 mg PO DAILY 02/23/14 levothyroxine 200 mcg tablet 200 mcg PO QDAY #90 tab 11/20/17 proMETHazine tablet [Phenergan 25 mg PO Q6H PRN PRN #10 tab 12/04/17 tablet] Aspirin E.C. [Ecotrin] 81 mg PO QHS 01/30/18 Hydrochlorothiazide [Hctz] 25 mg PO DAILY 01/30/18 Hydrocodone/Acetaminophen [[place] 1 tab PO PRN PRN 01/30/18 5-325 Tablet] Nitroglycerin (INPATIENT USE) 0.4 mg SUBLINGUAL Q5M PRN #120 tab 02/01/18 [Nitrostat] insulin lispro (U-100) 100 unit/mL See Rx Instructions SC DAILY #150 02/05/18 subcutaneous solution ml Contour Next Test Strips See Dose Instructions .ROUTE 05/07/18 .MEDSUPPLY #750 ea NS cyclobenzaprine 10 mg tablet 5 - 10 mg PO PRN PRN 30 Days #30 07/03/18 tab isosorbide mononitrate ER 30 mg 30 mg PO QAM #90 tab 07/03/18 tablet,extended release 24 hr metoprolol succinate ER 50 mg 50 mg PO QDAY #90 tab 07/03/18 tablet,extended release 24 hr valacyclovir 500 mg tablet 500 mg PO DAILY PRN 07/03/18 Lisinopril 20 mg PO QHS 01/23/19 Ticagrelor [Brilinta] 90 mg PO BID 01/23/19 Surgical History: Surgical History (Last Reviewed 07/03/18 @ 10:14 by Kayla Gipson) S/P coronary artery stent placement (Chronic) Z95.5 Tsfer from [facility] to [facility] on 09/19/17 for multivessel CAD: PCI and VALENTINE of LAD and proximal ramus intermedius per Dr. Gutierrez History of left heart catheterization (Chronic) Z98.890 09/19/[address] 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 Denies: Palpitations Respiratory: Denies: Cough, Shortness of breath at rest, Sputum production Gastrointestinal: Denies: Abdominal Pain, Nausea, Vomiting Genitourinary: Denies: Dysuria Musculoskeletal: Denies: Joint Pain, Joint Tenderness Skin: Denies: Rash, Wounds Neurological: Denies: Numbness, Tingling, Focal weakness Psychiatric: Denies: Anxiety, Depression Hematologic/ Lymphatic: Denies: Easy Bruising, Easy Bleeding VTE Information - Inpt Only VTE Present on Admission: No - Physical Exam General: Alert, Oriented x3, Cooperative, No apparent distress HEENT: Atraumatic, PERRLA, EOMI, Normocephalic Oral: Moist Mucosa Neck: Supple, No JVD Lungs: Clear to auscultation, Normal air movement, No rhonchi, No wheeze, No rales, Diminished Cardiovascular: Regular rate, Regular Rhythm, Normal S1, Normal S2, No murmurs Abdomen: Soft, Non Tender, Non-Distended, No Hepato-splenomegaly, Obese Extremities: Capillary Refill Less than 3 Seconds, Edema - Trace bilateral pitting edema Skin: No rashes, No breakdown Neurological: Neuro grossly intact, Sensory exam intact to light touch and pain Psych/Mental Status: Normal Affect, Appropriate Vital Signs Temp Pulse Resp BP Pulse Ox 98.4 F 98 20 H 134/65 H 99 01/23/19 08:20 01/23/19 10:05 01/23/19 10:05 01/23/19 10:05 01/23/19 10:05 Oxygen Flow Rate (L/min) 2 Oxygen Delivery Method Nasal Cannula Weight: 307 lb 5.19 oz Body Mass Index (BMI) 49.6 Laboratory Tests Past 24 Hrs 01/23/19 01/23/19 09:35 09:35 WBC 11.8 H RBC 4.28 Hgb 12.5 Hct 38.2 MCV 89.3 MCH 29.2 MCHC 32.7 RDW Std Deviation 48.8 H RDW Coeff of [place] 14.9 H Plt Count 378 MPV 9.5 Immature Gran % (Auto) 0.600 Neut % (Auto) 81.1 H Lymph % (Auto) 12.0 L [place] % (Auto) 3.2 Eos % (Auto) 2.6 Baso % (Auto) 0.5 Absolute Neuts (auto) 9.6 H Absolute Lymphs (auto) 1.42 Nucleated RBC % 0 Sodium 135 L Potassium 4.3 Chloride 102 Carbon Dioxide 25.0 Anion Gap 8 BUN 20 H Creatinine 1.11 H Estim Creat Clear Calc 56.13 Est GFR (MDRD) Af Amer 67 Est GFR (MDRD) Non-Af 55 L BUN/Creatinine Ratio 18.0 Glucose 372 H Calcium 8.9 Troponin I 0.038 Assessment/Plan All Active Problems (Last Updated 02/05/18 @ 13:11 by Kayla Gipson) Chest pain (Acute) Cellulitis of left lower extremity (Acute) NSTEMI (non-ST elevated myocardial infarction) (Acute) 1. Chest pain/CAD status post stent/HTN/HLD -We will obtain serial troponins and obtain a nuclear stress test in the morning assuming her troponins remain negative -Continue with her aspirin and her Brilinta -Continue with her HCTZ, isosorbide mononitrate, lisinopril, metoprolol -Previous echo of September of last year with an EF of 65% and mild diastolic dysfu nction 2. Anxiety/depression -Stable -Continue with Wellbutrin 3. DM 2 -Continue with her insulin pump will monitor with a ACHS Accu-Cheks -Sliding scale as needed 4. Hypothyroidism -Stable -Continue with Synthroid -Last TSH was 1.31 in January 2018 DVT: Lovenox Code Visit OBSV E&M: [id number] Initial observation care L3
--- NOTE | 2019-01-23 11:38 | EKG12_ITS ---
Test Reason : AM EKG Blood Pressure : / mmHG Vent. Rate : 084 BPM Atrial Rate : 084 BPM P-R Int : 174 ms QRS Dur : 076 ms QT Int : 388 ms P-R-T Axes : 007 -21 084 degrees QTc Int : 458 ms Normal sinus rhythm Low voltage QRS Nonspecific T wave abnormality Abnormal ECG When compared with ECG of 23-JAN-2019 11:34, MANUAL COMPARISON REQUIRED, DATA IS UNCONFIRMED Confirmed by BHUMIKA BECERRIL, YOEL ([id number]), health editor RAGHU DIAMOND ([id number]) on 01/30/2019 11:15:22 AM Referred By: HERMAN Confirmed By:BOONE BAI MD
--- NOTE | 2019-01-23 16:12 | PCM.CONS.C ---
Problem List (1) Chest pain Status: Acute (2) CAD in [place] artery Status: Chronic (3) S/P PTCA (percutaneous transluminal coronary angioplasty) Status: Chronic (4) S/P coronary artery stent placement Status: Chronic Comment: Tsfer from [facility] to [facility] on 09/19/17 for multivessel CAD: PCI and VALENTINE of LAD and proximal ramus intermedius per Dr. Gutierrez (5) NSTEMI (non-ST elevated myocardial infarction) Status: Chronic (6) Atherosclerotic heart disease of [place] coronary artery without angina pectoris Status: Chronic Qualifiers: [place] vs. transplanted heart: [place] heart Qualified Code(s): I25.10 - Atherosclerotic heart disease of [place] coronary artery without angina pectoris Comment: Tsfer from [facility] to [facility] on 09/19/17 for multivessel CAD: PCI and VALENTINE of LAD and proximal ramus intermedius per Dr. Gutierrez (7) Hypertension Status: Chronic Qualifiers: Hypertension type: essential hypertension Qualified Code(s): I10 - Essential (primary) hypertension (8) Hyperlipidemia Status: Chronic Qualifiers: Hyperlipidemia type: pure hypercholesterolemia Qualified Code(s): E78.00 - Pure hypercholesterolemia, unspecified; E78.0 - Pure hypercholesterolemia Comment: At goal No adjustment (9) Diabetes mellitus type 2 in obese Status: Chronic Comment: Over correcting at bedtime. Will change 8pm correction to 1-50. Needs higher basal at night and may need to alter other basals as we continue to adjust but will continue to monitor. Increase 12m by 0.2 Reason for Consult Date of Consultation: 01/23/19 Reason for Consultation: Chest pain, non-STEMI, hypertension, hypercholesterolemia, coronary artery disease, diabetes, morbid obesity History of Present Illness: Details: ODILIA CAREY, is a 53 F who has a history of coronary artery disease with a non-ST myocardial infarction in September 2017. Heart catheterization at that time demonstrated severe triple-vessel disease involving a normal left main coronary artery, and LAD with an 80% proximal stenosis and a 90% mid to distal disease segment. The first obtuse marginal branch had a 90% stenosis in the right coronary artery had mild disease of approximately 50%. Initially it was thought that she will be a candidate for coronary bypass surgery she was transferred to a tertiary care center and after evaluation it was thought that she would be too high risk for the surgery. She therefore underwent successful angioplasty and stenting of the left anterior descending artery lesions with a drug-eluting stent as well as the first obtuse marginal/ramus intermedius vessel with a drug-eluting stent. She was started on isosorbide for her residual disease. In January 2018 she underwent a heart catheterization for continued chest discomfort and was found to have progression of her disease in her LAD and her intermediate ramus distributions and underwent subsequent stenting to her LAD and PTCA of the intermediate ramus. In addition she underwent FloWire evaluation of her mid RCA, which was found to be negative and no additional stenting was performed. She was unable to complete cardiac rehab d/t an MCL tear. Pt has not had any chest pain/heaviness. She has not needed to use any PRN NTG. She does not have any worsening SOB. She does not have any symptoms of CHF. She does not have any lightheadedness/dizziness. She does not have any edema. She does not have palpitations. Patient was doing well, since January 2018, and had no exertional anginal symptoms. At around 630 this morning, after waking up, the patient developed substernal chest pain which radiated to between both shoulder blades and to her back. She had no associated nausea, vomiting and describes it as a 7 out of 10 in severity. She took 2 sublingual nitroglycerin and the pain resolved. She sought medical attention at [facility] ER where an EKG was performed which showed normal sinus rhythm with evidence of anterior T wave inversion, old inferior wall myocardial infarction, no ST segment elevation. She is currently resting comfortably. Her initial troponin was 0.038. [] Past Medical History Allergies/Adverse Reactions: Allergies adhesive Allergy (Verified 01/23/19 08:19) Rash bacitracin [From Neosporin ([id number]-[id number])] Allergy (Verified 01/23/19 08:19) Rash bacitracin zinc [From Neosporin (zhp-qna-zhvax)] Allergy (Verified 01/23/19 08:19) Rash neomycin sulfate [From Neosporin (hjm-ylc-ohowc)] Allergy (Verified 01/23/19 08:19) Rash polymyxin B [From Neosporin (alt-khp-cjzqh)] Allergy (Verified 01/23/19 08:19) Rash Lwardyo-Bxm-Irv Reductase Inhibitor Allergy (Verified 01/23/19 08:19) MUSCLE WEAKNESS morphine Adverse Reaction (Verified 01/23/19 08:19) Other Home Medications: Ambulatory Orders Medication Instructions Recorded buPROPion XL [Wellbutrin Xl] 300 mg PO DAILY 02/23/14 levothyroxine 200 mcg tablet 200 mcg PO QDAY #90 tab 11/20/17 proMETHazine tablet [Phenergan 25 mg PO Q6H PRN PRN #10 tab 12/04/17 tablet] Aspirin E.C. [Ecotrin] 81 mg PO QHS 01/30/18 Hydrochlorothiazide [Hctz] 25 mg PO DAILY 01/30/18 Hydrocodone/Acetaminophen [Dahinda 1 tab PO PRN PRN 01/30/18 5-325 Tablet] Nitroglycerin (INPATIENT USE) 0.4 mg SUBLINGUAL Q5M PRN #120 tab 02/01/18 [Nitrostat] insulin lispro (U-100) 100 unit/mL See Rx Instructions SC DAILY #150 02/05/18 subcutaneous solution ml Contour Next Test Strips See Dose Instructions .ROUTE 05/07/18 .MEDSUPPLY #750 ea NS cyclobenzaprine 10 mg tablet 5 - 10 mg PO PRN PRN 30 Days #30 07/03/18 tab isosorbide mononitrate ER 30 mg 30 mg PO QAM #90 tab 07/03/18 tablet,extended release 24 hr metoprolol succinate ER 50 mg 50 mg PO QDAY #90 tab 07/03/18 tablet,extended release 24 hr valacyclovir 500 mg tablet 500 mg PO DAILY PRN 07/03/18 Lisinopril 20 mg PO QHS 01/23/19 Ticagrelor [Brilinta] 90 mg PO BID 01/23/19 Past Medical History (Chronic Problems): Chronic Problems (Last Updated 02/05/18 @ 13:11 by Kayla Gipson) CAD in [place] artery (Chronic) S/P PTCA (percutaneous transluminal coronary angioplasty) (Chronic) S/P coronary artery stent placement (Chronic) Tsfer from [facility] to [facility] on 09/19/17 for multivessel CAD: PCI and VALENTINE of LAD and proximal ramus intermedius per Dr. Gutierrez NSTEMI (non-ST elevated myocardial infarction) (Chronic 09/18/17) Atherosclerotic heart disease of [place] coronary artery without angina pectoris (Chronic) Tsfer from [facility] to [facility] on 06/12/18 for multivessel CAD: PCI and VALENTINE of LAD and proximal ramus intermedius per Dr. Gutierrez History of left heart catheterization (Chronic) 09/19/[address] Toscano @ [facility] Hypertension (Chronic) Hyperlipidemia (Chronic) At goal No adjustment Diabetic retinopathy associated with type 2 diabetes mellitus (Chronic) Diabetes mellitus type 2 in obese (Chronic) Over correcting at bedtime. Will change 8pm correction to 1-50. Needs higher basal at night and may need to alter other basals as we continue to adjust but will continue to monitor. Increase 12m by 0.2 Surgical History: - - History of , 2 D&Cs, tonsillectomy, 7 laser surgeries on her eyes Psychiatric History: No pertinent psych hx CHIEF EXECUTIVE History: No pertinent CHIEF EXECUTIVE history - *Family History Maternal Family History: Family History (Last Reviewed 07/03/18 @ 10:14 by Kayla Gipson) Other CVA (cerebral vascular accident) Heart disease Hypertension Thyroid disorder History Items: Stroke Smoking Status: Former smoker Tobacco Use: Cigarettes Alcohol: None Drugs: None Review of Systems - Review of Systems General: Denies: Fever, Night Sweats, Fatigue Cardiovascular: Reports: Chest Discomfort, Chest Discomfort at Rest, Chest Heaviness. Denies: Shortness of Breath, Orthopnea, PND, Peripheral Edema, Palpitations, Lightheadedness, Dizziness, Near Syncope, Syncope Respiratory: Denies: Cough, Sputum Production, Hemoptysis Gastrointestinal: Denies: Hematemesis, Hematochezia, Melena Genitourinary: Denies: Dysuria, Hematuria Skin: Denies: Rash Subjectve: Patient resting comfortably, no acute distress. Objective: Vital Signs Temp Pulse Resp BP Pulse Ox 97.8 F 79 12 128/66 H 95 01/23/19 11:43 01/23/19 15:05 01/23/19 11:43 01/23/19 11:43 01/23/19 11:43 Oxygen Flow Rate (L/min) 2 Oxygen Delivery Method Room Air Weight: 307 lb 5.19 oz Body Mass Index (BMI) 49.6 General: Awake, Alert, Oriented x 3 HEENT: PERRL, EOMI, Sclera Non Icteric Neck: Supple, Good ROM, No Lymph Node Enlargement Lungs: Clear to auscultation Cardiovascular: Regular Rhythm, Normal S1, Normal S2, No Murmurs, No Rubs, No Gallops Vascular: No Carotid Bruits, Normal Femoral Pulses, Normal Radial Pulses, Normal Dorsalis Pedal Pulse, Normal Posterior Tibial Pulses Abdomen: Bowel Sounds Present, Soft, Non Tender, No HSM, No Organomegaly Extremities: No Cyanosis, No Clubbing, No edema Neurological: No Focal Motor or Sensory Deficit 01/23/19 09:35: WBC 11.8 H, RBC 4.28, Hgb 12.5, Hct 38.2, MCV 89.3, MCH 29.2, MCHC 32.7, Plt Count 378, MPV 9.5, Immature Gran % (Auto) 0.600, Neut % (Auto) 81.1 H, Lymph % (Auto) 12.0 L, [place] % (Auto) 3.2, Eos % (Auto) 2.6, Baso % (Auto) 0.5, Absolute Neuts (auto) 9.6 H, Nucleated RBC % 0 01/23/19 09:35: Sodium 135 L, Potassium 4.3, Chloride 102, Carbon Dioxide 25.0, Anion Gap 8, BUN 20 H, Creatinine 1.11 H, Est GFR (MDRD) Af Amer 67, Est GFR (MDRD) Non-Af 55 L, BUN/Creatinine Ratio 18.0, Glucose 372 H, Calcium 8.9, Troponin I 0.038 01/23/19 12:20: Troponin I 1.640 H* Rhythm: EKG: ECHO: Stress Test: Cardiac Cath: PCI: CT Surgery: Holter monitor: EPS: PPM: CXR: Chest CT Scan: Assessment/Plan 1. Coronary artery disease: Patient presents with unstable angina, superimposed on dynamic EKG changes, and mildly elevated troponin. Patient has a known history of multivessel coronary disease, with multiple stenting to her LAD, ramus intermedius, and FloWire evaluation of her RCA in January 2018. Unfortunately due to her MCL tear she was unable to complete cardiac rehab, and is a diabetic on insulin pump making her risk of recurrent coronary ethyl sclerosis somewhat elevated. Given the patient's presentation, abnormal troponins, difficulty with assessing her with stress test, I would recommend proceeding with left heart catheterization tomorrow morning. She is currently maintained on her baby aspirin, Brilinta. Given her table angina and abnormal EKG and abnormal enzymes, would recommend subcu Lovenox per protocol. In addition she will continue her Toprol, Imdur, and lisinopril. In addition the patient is requested a Renteria be placed preemptively prior to her catheterization so as to avoid possible complications or need for it after the procedures been completed. 2. Hyperlipidemia: Recommend obtaining a fasting lipid profile. Her LDL should be less than 70. Unfortunately she is unable to take statins. We may consider gemfibrozil. 3. Thank you very much for the opportunity to participate in the cardiac care of your patient. Consultation time took place between 315 and 345. Code Visit Inpatient E&M: 28908 Init Hosp L2
[2019-01-23 16:21] LABS: Bedside Glucose 147 mg/dL (70-110)
[2019-01-23] MEDS: Isosorbide Mononitrate 30 MG Tablet PO (16:27)
[2019-01-23] MEDS: Metoprolol(XL)Succ 50 MG Tablet PO (16:27)
[2019-01-23] MEDS: hydroCHLOROthiazide 25 MG Tablet PO (16:27)
[2019-01-23] MEDS: buPROPion (XL) 300 MG TABLET.XL PO (16:27)
[2019-01-23 16:48] LABS: Cholesterol 146 mg/dL (200); High Density Lipoprotein 46 mg/dL; Triglycerides 104 mg/dL; Very Low Density Lipoprotein 21 mg/dL (5-40)
[2019-01-23 17:48] LABS: Internal QC Validated? YES +Cl - CLEAR BKGD; Pregnancy, Urine Negative Negative
[2019-01-23] MEDS: Ondansetron 4 MG/2 ML Vial IV (21:05)
[2019-01-23] MEDS: HYDROcodone Bitartrate/Apap 5/325 Tablet PO (21:05)
[2019-01-23] MEDS: 0.9% Saline Lock 10 ML Syringe IV ×4 (21:28→21:54)
[2019-01-23] MEDS: TICAGRELOR 90 MG TABLET PO (21:31)
[2019-01-23] MEDS: cycloBENZAPRine HCl 10 MG Tablet PO (21:53)
[2019-01-23 21:55] LABS: Bedside Glucose 176 mg/dL (70-110)
[2019-01-24] VITALS (26 sets, daily range): BP systolic 97–159; BP diastolic 44–80; PULSE 68–87; RESP 12–27; TEMP 36.1–37; O2SAT 93–99
--- NOTE | 2019-01-24 05:55 | EKG12_ITS ---
Test Reason : AM EKG Blood Pressure : / mmHG Vent. Rate : 071 BPM Atrial Rate : 071 BPM P-R Int : 174 ms QRS Dur : 078 ms QT Int : 412 ms P-R-T Axes : 014 -14 079 degrees QTc Int : 447 ms Normal sinus rhythm Low voltage QRS Borderline ECG When compared with ECG of 24-JAN-2019 05:10, MANUAL COMPARISON REQUIRED, DATA IS UNCONFIRMED Confirmed by MAIKOL BECERRIL, BRENDA ([id number]), newspaper editor RAGHU DIAMOND ([id number]) on 02/04/2019 11:03:19 AM Referred By: HERMAN Confirmed By:BRENDA LASSITER MD
[2019-01-24] MEDS: DiphenhydrAMINE 25 MG Capsule 50 MG PO (06:12)
[2019-01-24] MEDS: 0.9% Normal Saline 1,000 ML 15 ML IV (06:13)
[2019-01-24] MEDS: Levothyroxine 100 MCG Tablet 200 MCG PO (06:13)
[2019-01-24] MEDS: TICAGRELOR 90 MG TABLET PO ×2 (06:14→22:14)
[2019-01-24] MEDS: Isosorbide Mononitrate 30 MG Tablet PO (06:15)
[2019-01-24] MEDS: Metoprolol(XL)Succ 50 MG Tablet PO (06:15)
[2019-01-24] MEDS: 0.9% Saline Lock 10 ML Syringe IV (06:17)
[2019-01-24 06:25] LABS: Bedside Glucose 313 mg/dL (70-110)
[2019-01-24] MEDS: Aspirin E.C. 81 MG Tablet PO (07:02)
[2019-01-24 08:31] LABS: ACT Activated Clotting Time 158 sec (74-137)
--- NOTE | 2019-01-24 08:45 | EKG12_ITS ---
Test Reason : CP ADMISSION Blood Pressure : / mmHG Vent. Rate : 079 BPM Atrial Rate : 079 BPM P-R Int : 180 ms QRS Dur : 074 ms QT Int : 386 ms P-R-T Axes : -03 -08 043 degrees QTc Int : 442 ms Normal sinus rhythm Low voltage QRS Inferior infarct , age undetermined Abnormal ECG When compared with ECG of 01-FEB-2018 05:04, Criteria for Septal infarct are no longer Present T wave inversion more evident in Anterior leads Confirmed by BHUMIKA BECERRIL, YOEL ([id number]), food expeditor RAGHU DIAMOND ([id number]) on 01/30/2019 11:15:59 AM Referred By: HERMAN Confirmed By:BOONE BAI MD
--- NOTE | 2019-01-24 08:48 | CL.I_ITS ---
Patient Name: ODILIA CAREY Study Date: 01/24/2019 Performing: Earl Stanley MD Ht: 66.14 inches 168 cm : 1965 Wt: 306.44 lbs 139 kg Age: 53 Gender: female BSA: 2.4 PROCEDURE(S) PERFORMED IM42-SIG/COR/LV [id number], SINGLE CORONARY ARTERY CLINICAL PROFILE AND CO-MORBIDITIES Patient presents with NSTEMI for urgent cardiac cath Indications: Worsening Angina, Stable Known CAD, LV Dysfunction Heart Failure: NYHA Class: 1, Newly Diagnosed: Yes, Heart Failure Type: Systolic Stress/Imaging Stress/Image Study Performed: No Angina Classification Anginal Classification w/in 2 Weeks: CCS IV CAD Presentations: Unstable angina. Non-STEMI. Symptom onset Date/Time: 01/23/2019 Time Not Avail able Comorbidities/Risk Factors: Hypertension Dyslipidemia Prior PCI Diabetes Mellitus: Diabetes Therapy: Insulin CONCLUSIONS Triple vessel CAD of the LAD, Ramus, LCX RCA Segmented LV systolic dysfunction- Mild Successful PCI with PTCA to the distal LAD ISR with a 2.0 x 12 Balloon, followed by a 2.0 x 10 Angios culpt; 90%-->0%, no dissection. RECOMMENDATIONS Referred for immediate PCI Surgery consult for coronary revascularization Highly recommend quitting all tobacco products Follow up with primary inserter Risk factor modification ASA Indefinitley Plavix for at least 12 months Routine post interventional care Refer for Outpatient Cardiac Rehab Manual sheath removal per protocol Follow up with Dr. Toscano Refer to Dr Tariq for CABG to LAD, ?Ramus, LCX and RCA. I would NOT recommend any additional stenting given pt's predisposition for aggressive in stent rest enosis. D/w Dr Castro and Dr Tariq. Pt will need 1 month of DAPT, followed by CABG, followed by surgery on R knee. Successful Mynx Control closure. DESCRIPTION OF PROCEDURE The patient arrived to the procedure lab. The risks and benefits of the procedure as well as a full d escription of our services here and lack of surgical backup were fully explained to the patient and/o r their significant other prior to the catheterization. The Timeout was completed, verifying the marilin ect patient and procedure. The patient's procedural site was prepped and draped in the usual fashion. Local anesthetic was given subcutaneously to right groin region with Lidocaine 2%. Using a modified Seldinger technique, arterial access was obtained via the right femoral artery, a 4Fr sheath was inse rted. Left Coronary Artery selective angiography was performed in multiple views using a 4 Fr. JL5 c atheter. Right Coronary Artery selective angiography was then performed in multiple views using a 4 F r. 3DRC catheter. Left Ventriculography was performed in GIL projection using a 4 Fr. Pigtail cathete r. LV to AO pullback pressures were then recordedThe images were reviewed and options discussed. A decision was then made to proceed with an Intervention, IVUS or other adjunct procedure. Arterial sheath was exchanged for a 6 Fr Sheath. EBU 3.5 Guide catheter was inserted and engaged into the LCA. BMW Guide wire was advanced to the LAD. 2x12 Emerge Balloon catheter was inserted. Ball oon catheter was advanced across lesion in the LAD, distal. PTCA balloon inflated at 6 atms for 10 se cs. PTCA balloon inflated at 8 atms for 12 secs. PTCA balloon inflated at 6 atms for 8 secs. 2x10 Ang iosculpt Cutting balloon catheter was inserted 2x10 Angiosculpt Cutting balloon catheter was inserted Cutting balloon catheter was advanced to the lesion in the LAD, distal. Cutting balloon catheter was advanced to the lesion in the LAD, distal. Angiogram performed post balloon dilatation. Contrast was injected through the sheath and the Right Iliac and Femoral artery were assessed for possible closur e device. The arterial sheath was pulled and a Mynx closure device was deployed for hemostasis CORONARY ANGIOGRAPHY DOMINANCE: Right Dominant LEFT HEART ASSESSMENT Left Ventricular Ejection Fraction: by LV Gram 50 % Depressed Left Ventricular systolic function Normal Left Ventricular End Diastolic Pressure LVEDP: 6 mmHg Apical Hypokinesis - Moderate LEFT MAIN: Angiographically normal LEFT ANTERIOR DESCENDING ARTERY: MID LAD: Instent restenosis 30 % DISTAL LAD: Instent restenosis 95 % CIRCUMFLEX ARTERY: OSTIAL CIRC: 85 % Stenosis RAMUS: Previously placed stent is occluded RIGHT CORONARY ARTERY: MID RCA: 75 % Stenosis COLLATERAL FLOW: Collateral flow from Right to Left INTERVENTION INFORMATION LESION SITE: LAD (Distal) Lesion Complexity: Non-High/Non-C, lesion at bifurcation: No, thrombus present: No, lesion length: 12 mm, culprit lesion: Yes Pre Stenosis: 90 % Pre intervention ALYSSA flow: 2 PROCEDURE: Balloon Angioplasty, Cutting Balloon Angioplasty Post Stenosis: 0 % Post intervention ALYSSA flow: 3 Lesion Devices: Medtronic 6 Fr EBU3.5 100cm Guide Catheter Blunt .014 BMW [place] Straight 190cm Saroj Sci EMERGE MR 2.00x12 BALLOON Rypos Angiosculpt RX 2.0x10 Scoring Balloon COMPLICATIONS No Complications PROCEDURE MEDICATIONS Versed 2 mg IV Versed 2 mg IV Fentanyl 25 mcg IV Fentanyl 25 mcg IV Oxygen: 2 L/min via nasal cannula Heparin 6000 unit(s) IV 01/24/2019 08:06:26 Nitro 200 mcg IC 01/24/2019 07:55:41 Nitro 200 mcg IC 01/24/2019 07:55:41 SUMMARY OF HEMODYNAMIC DATA Time AIR REST ECG 07:25:24 AO 132/69 (96) SA 07:51:33 LV 132/-18, 0 07:59:30 LV 139/-18, 6 07:59:37 LVp 126/43, 63 08:00:04 AOp 124/60 (84) 08:00:09 AO 78/35 (56) 08:09:56 RM AIR REST 08:36:30 Signed By Earl Stanley MD On 01/24/2019 8:47:29 AM Earl Stanley MD
--- NOTE | 2019-01-24 08:53 | CRPHASE1_ITS ---
Patient Communication Former Patient:: Phase I PHII Cardiac Rehab Discussed with Patient:: Yes - Patient was previously seen on 01/31/2018 Guide to Cardiac Rehab Given to Patient:: Yes - Patient was given booklet on 01/31/2018 Cardiac Rehab Facility Choice List Given to Patient:: Yes Choice Program [facility] PHII:: Communication Given to CR, Refer to [facility] Finished Cigar Maker:: Earl Stanley Phase II Cardiac Rehab:: Yes - Patient did not participate following previous PCI intervention 01/31/2018. Sessions:: 36 sessions - 3 days/wk, 12 weeks Risk Factors/Lifestyle Family History: Family History (Last Reviewed 07/03/18 @ 10:14 by Kayla Gipson) Other CVA (cerebral vascular accident) Heart disease Hypertension Thyroid disorder Laboratory Values: Cardiac Rehab Phase I Labs Triglycerides 104 mg/dL (-199) 01/23/19 15:12 Cholesterol 146 mg/dL (200) 01/23/19 15:12 LDL Cholesterol 79 mg/dL (0-130) 01/23/19 15:12 HDL Cholesterol 46 mg/dL (40-) 01/23/19 15:12 Cardiac Rehabilitation Info Cardiac Rehabilitation Program Information: Cardiac Rehabilitation is important for patients like you who are recovering from a heart problem. Cardiac rehabilitation programs are recognized as integral to the continued care of the patient with coronary heart disease. The cardiac rehabilitation program is designed to optimize a patient's physical, psychological, and social functioning. Health hospice care sales consultant work in cardiac rehabilitation programs and assist you with getting the treatments you need to get stronger and healthier - like exercise, healthy eating habits, and medications. Cardiac rehabilitation has been show to help people with heart problems live longer and have better life enjoyment than people who do not go to cardiac rehabilitation. Please contact the Cardiac Rehabilitation Program at [facility] at in two weeks if you have not heard from them.
--- NOTE | 2019-01-24 08:57 | CRPH1.INSTRU ---
General Education CAD and cardiac anatomy and function:: Not instructed Explanation of diagnoses and procedures:: Not instructed Sign/Symptoms of [place]:: Not instructed Antiplatelet therapy: Not instructed Proper use of NTG-SL: Not instructed Emergency procedures and activation of EMS: Not instructed Compliance of all prescribed medications: Not instructed - Patient was seen following previous PCI intervention on 01/31/2018. [facility]
[2019-01-24] MEDS: 0.9% Normal Saline 1,000 ML 150 ML IV (09:16)
[2019-01-24 09:31] LABS: Bedside Glucose 304 mg/dL (70-110)
--- NOTE | 2019-01-24 10:00 | EKG12_ITS ---
Test Reason : POST PCI Blood Pressure : / mmHG Vent. Rate : 082 BPM Atrial Rate : 082 BPM P-R Int : 178 ms QRS Dur : 078 ms QT Int : 404 ms P-R-T Axes : 030 000 073 degrees QTc Int : 472 ms Normal sinus rhythm Low voltage QRS Nonspecific ST and T wave abnormality Prolonged QT Abnormal ECG When compared with ECG of 24-JAN-2019 05:10, MANUAL COMPARISON REQUIRED, DATA IS UNCONFIRMED Confirmed by MAIKOL BECERRIL, BRENDA ([id number]), editor in chief newspaper RAGHU DIAMOND ([id number]) on 02/04/2019 11:04:39 AM Referred By: CHARLENE Confirmed By:BRENDA LASSITER MD
[2019-01-24] MEDS: Acetaminophen 325 MG Tablet 650 MG PO (11:10)
[2019-01-24 12:55] LABS: Bedside Glucose 318 mg/dL (70-110)
[2019-01-24] MEDS: Insulin Lispro 100 UNIT/ML INSULN.PEN SC ×2 (14:05→17:51)
--- NOTE | 2019-01-24 15:13 | PN_ITS ---
Subjective: Feeling well today after her procedure. No acute events overnight. She did have an elevated troponin yesterday and therefore proceed with cardiac cath this morning. Vitals/I&O's: Vital Signs Temp Pulse Resp BP Pulse Ox 98.1 F 82 17 116/53 L 99 01/24/19 12:00 01/24/19 14:00 01/24/19 14:00 01/24/19 14:00 01/24/19 14:00 Oxygen Flow Rate (L/min) 2 Oxygen Delivery Method Room Air Weight: 307 lb 5.19 oz Body Mass Index (BMI) 49.6 Intake and Output for Last 24 Hours 01/22/19 01/23/19 01/24/19 23:59 23:59 23:59 Intake Total 400 / 400 1.5 / 1.5 Output Total 900 / 900 1000 / 1000 Balance -500 / -500 -998.5 / -998.5 General: Alert, Oriented x3, Cooperative, No apparent distress HEENT: Atraumatic, PERRLA, EOMI, Normocephalic Oral: Moist Mucosa Neck: Supple, No JVD Lungs: Clear to auscultation, Normal air movement, No rhonchi, No wheeze, No rales, Diminished Cardiovascular: Regular rate, Regular Rhythm, Normal S1, Normal S2, No murmurs Abdomen: Soft, Non Tender, Non-Distended, No Hepato-splenomegaly, Obese Extremities: Capillary Refill Less than 3 Seconds, Edema - Trace bilateral pitting edema Skin: No rashes, No breakdown Neurological: Neuro grossly intact, Sensory exam intact to light touch and pain Psych/Mental Status: Normal Affect, Appropriate Laboratory Results 01/23/19 15:12: Troponin I 2.690 H* 01/23/19 15:12: Triglycerides 104, Cholesterol 146, LDL Cholesterol 79, VLDL Cholesterol 21, HDL Cholesterol 46 01/23/19 16:17: POC Glucose 147 H 01/23/19 17:20: Urine Test Negative 01/23/19 21:27: POC Glucose 176 H 01/24/19 06:10: POC Glucose 313 H 01/24/19 08:21: Activated Clotting Time 158 H 01/24/19 08:58: POC Glucose 304 H 01/24/19 12:49: POC Glucose 318 H Current Medications Acetaminophen (Tylenol) 650 mg PO Q6H PRN PRN PRN Reason: Pain Score 1-3/10 Last Admin: 01/24/19 11:10 Dose: 650 mg Documented by: Hydrocodone Bitart/Acetaminophen (Shepherd 5mg-325mg) 1 tablet PO Q4H PRN PRN PRN Reason: Pain/Inflammation Last Admin: 01/23/19 21:05 Dose: 1 tablet Documented by: Acyclovir (Zovirax) 400 mg PO BID PRN PRN PRN Reason: HERPES Aspirin (Ecotrin) 81 mg PO QHS [facility] Last Admin: 01/24/19 07:02 Dose: 81 mg Documented by: Atropine Sulfate () 0.5 mg IV UD PRN PRN Reason: HR <50 bpm Bupropion HCl (Wellbutrin Xl) 300 mg PO DAILY [facility] Last Admin: 01/24/19 14:06 Dose: Not Given Documented by: Cyclobenzaprine HCl (Flexeril) 5 - 10 mg PO DAILY PRN PRN PRN Reason: MUSCLE SPASM Last Admin: 01/23/19 21:53 Dose: 10 mg Documented by: Dextrose (D50w Syringe) 0 gm IV X1 PRN; Protocol PRN Reason: Hypoglycemia Diazepam (Valium) 5 mg PO Q6H PRN PRN PRN Reason: BACK SPASMS/ANXIETY Glucagon () 1 mg IM .X1 PRN PRN Reason: Hypoglycemia Heparin Sodium (Beef Lung) (Heparin 500 Unit/5 Ml (100/Ml)) 500 unit IV UD PRN PRN Reason: HEPARIN FLUSH Hydralazine HCl (Apresoline Iv) 10 mg IV Q4H PRN PRN PRN Reason: SBP > 160 Hydrochlorothiazide (Hctz) 25 mg PO DAILY [facility] Last Admin: 01/23/19 16:27 Dose: 25 mg Documented by: Sodium Chloride () 1,000 mls @ 15 mls/hr IV .Q48H [facility] Last Infusion: 01/24/19 07:03 Dose: 15 mls/hr Documented by: Sodium Chloride () 250 mls @ 15 mls/hr IV .[id number] PRN PRN Reason: Saline Flush Sodium Chloride () 1,000 mls @ 150 mls/hr IV .Q6H40M [facility] Stop: 01/24/19 15:21 Last Admin: 01/24/19 09:16 Dose: 150 mls/hr Documented by: Insulin Aspart (Pump, Basal) 0 unit SC DAILY [facility] Insulin Human Lispro (Humalog Kwikpen (Bkc)) 0 unit SC ACHS [facility]; Protocol Last Admin: 01/24/19 14:05 Dose: 25 units Documented by: Isosorbide Mononitrate (Imdur) 30 mg PO QAM [facility] Last Admin: 01/24/19 06:15 Dose: 30 mg Documented by: Labetalol HCl (Trandate) 5 mg IV X1 PRN PRN Reason: SBP > 160 when pulling sheath Levothyroxine Sodium (Synthroid) 200 mcg PO DAILY@0600 [facility] Last Admin: 01/24/19 06:13 Dose: 200 mcg Documented by: Lisinopril (Zestril) 20 mg PO QHS [facility] Metoprolol Succinate (Toprol Xl (Beta Tobi)) 50 mg PO DAILY [facility] Last Admin: 01/24/19 06:15 Dose: 50 mg Documented by: Nitroglycerin (Nitrostat) 0.4 mg SUBLINGUAL Q5M PRN PRN Reason: CARDIAC/CHEST PAIN Ondansetron HCl (Zofran) 4 mg IV Q8H PRN PRN PRN Reason: NAUSEA/VOMITING Last Admin: 01/23/19 21:05 Dose: 4 mg Documented by: Sodium Chloride () 5 - 15 ml IV UD PRN PRN Reason: SALINE FLUSH Last Admin: 01/24/19 06:17 Dose: 5 ml Documented by: Sodium Chloride () 500 ml IV BOLUS PRN PRN Reason: VASO-VAGAL PROTOCOL Ticagrelor (Brilinta) 90 mg PO BID [facility] Last Admin: 01/24/19 06:14 Dose: 90 mg Documented by: STROKE Vital Signs/Narrative: Vital Signs Temp Pulse Resp BP BP Pulse Ox 01/24/19 14:00 82 17 116/53 L 99 01/24/19 13:00 70 16 97/44 L 96 01/24/19 12:00 98.1 F 68 18 119/49 L 98 Medical Necessity - Tobacco Use Smoking Status: Former smoker Tobacco Use: Cigarettes Assessment/Plan All Active Problems (Last Updated 02/05/18 @ 13:11 by Kayla Gipson) Chest pain (Acute) Cellulitis of left lower extremity (Acute) NSTEMI (non-ST elevated myocardial infarction) (Acute) 1. Chest pain/CAD status post stent/HTN/HLD -Troponins bumped to 2.69 -Continue with her aspirin and her Brilinta -Continue with her HCTZ, isosorbide mononitrate, lisinopril, metoprolol -Previous echo of September of last year with an EF of 65% and mild diastolic dysfunction -Cardiac cath today, with ballooning of the distal LAD with no stent placement. Was discussed that she will need to follow-up in a month with cardiac surgery for bypass. 2. Anxiety/depression -Stable -Continue with Wellbutrin 3. DM 2 -Continue with her insulin pump will monitor with a ACHS Accu-Cheks -Sliding scale as needed 4. Hypothyroidism -Stable -Continue with Synthroid -Last TSH was 1.31 in January 2018 DVT: Lovenox Code Visit Inpatient E&M: 29578 Subs Hosp L2
--- NOTE | 2019-01-24 15:52 | CASEMGMT ---
Addendum entered by Lili Davis 01/24/19 15:58: Assessment completed @ [id number] Original Note: RN CM MANAGER INVENTORY CONTROL CM to room to meet with patient for initial transition planning/care coordination assessment. RN EFREN introduced self and role at [facility]. Pt voices understanding and consents to assessment at this time. Pt resting in recliner chair in no distress at this time. Mother @ bedside and pt agreeable to assessment w/mother present. Pt is A/O at this time and answers all questions appropriately. Care providers, pharmacy, and demographics verified at this time. PCP: Jesika Specialists: Dorcas--cardiology, OLIVIA Brady--endocrinology in [facility]--cardiothoracic surgeon @ [facility] Preferred Pharmacy: [facility] Insurance: [place] Prescription Benefit: Yes Living Will/HPOA: Has both LW and HCPOA. Pt states will try and have copies brought in to be placed on file @ [facility]. LNOK: Juan Living Arrangements: Lives in an with her . 3 steps to enter. States has lived there since 06/2016. Plans on having a ramp built to entrance of prior to open heart surgery. States her son lives 3 trailers up from her and he does the laundry. Transportation: Pt states drives self and states no transportation concerns at this time. will drive her home @ discharge DME: States has the following DME: Glucometer, insulin pump, rollator Pt states no need for further DME at this time. HHC/SNF: No history of either and denies needs. Pt wishes to return home and states has no concerns with going home at time of discharge. CM to follow for any discharge planning/needs. Pt voices no further concerns/needs at this time. Advised pt to ask for CM if any further questions/concerns/needs arise. Voices understanding. PLAN: Home w/family support and discharge plans in place. Gloria HERNANDEZ RN, CM
[2019-01-24] MEDS: hydroCHLOROthiazide 25 MG Tablet PO (16:31)
[2019-01-24 22:10] LABS: Bedside Glucose 177 mg/dL (70-110)
[2019-01-24] MEDS: Lisinopril 20 MG Tablet PO (22:14)
[2019-01-25] VITALS (16 sets, daily range): BP systolic 101–158; BP diastolic 38–74; PULSE 70–78; RESP 18–28; TEMP 36.6–36.8; O2SAT 95–99
[2019-01-25 00:50] LABS: Bedside Glucose 226 mg/dL (70-110)
--- NOTE | 2019-01-25 01:28 | NURSING ---
pt checked her BS at 0115 and got 218. her pump dosed her with 4.4 units of insulin
[2019-01-25] MEDS: Levothyroxine 100 MCG Tablet 200 MCG PO (05:55)
[2019-01-25 05:58] LABS: Hematocrit 36.2 % (37-47); Hemoglobin 11.8 g/dL (12.0-15.0); Mean Corp Hgb Conc 32.6 g/dL (32-36); Mean Corpuscular Hgb 28.9 pg (27.0-32.0); Mean Corpuscular Volume 88.5 fL (81-99); Mean Platelet Vol. 9.4 fl (6.2-12.0); Platelet Count 340 K/mm3 (150-450); RBC Distribution Width CV 14.4 % (11.6-14.6); RBC Distribution Width SD 47.2 fl (35.1-43.9); Red Blood Count 4.09 M/mm3 (4.2-5.4); White Blood Count 11.4 K/mm3 (4.4-11.0)
[2019-01-25 07:25] LABS: ALB/GLOB Ratio 0.6 RATIO (0.9-2.4); AST(SGOT) 11 U/L (15-37); Alanine Aminotransfer ALT/SGPT 13 U/L (13-56); Albumin, Serum 2.7 g/dL (3.2-5.0); Alkaline Phosphatase 110 U/L (45-117); Anion Gap 6 (5-15); BUN 17 mg/dL (7-18); BUN/Creat Ratio 20.2 RATIO (10-20); Calcium,Total 8.7 mg/dL (8.5-10.1); Chloride 103 mmol/L (98-107); Creatinine, Serum 0.84 mg/dL (0.55-1.02); EST Glomerular Filtration Rate 76 mL/min (>60); Est Glom Filt Rate - Afr Amer 92 mL/min (>60); Estimated Creatinine Clearance 74.17 ml/min; Globulin 4.2 g/dL (2.2-4.2); Glucose 135 mg/dL (74-106); Potassium 3.7 mmol/L (3.5-5.1); Protein, Total 6.9 g/dL (6.4-8.2); Sodium Level 137 mmol/L (136-145)
[2019-01-25] MEDS: hydroCHLOROthiazide 25 MG Tablet PO (07:54)
[2019-01-25] MEDS: TICAGRELOR 90 MG TABLET PO (07:55)
[2019-01-25] MEDS: buPROPion (XL) 300 MG TABLET.XL PO (07:55)
[2019-01-25] MEDS: Isosorbide Mononitrate 30 MG Tablet PO (07:55)
[2019-01-25] MEDS: Metoprolol(XL)Succ 50 MG Tablet PO (08:00)
[2019-01-25 08:01] LABS: Bedside Glucose 122 mg/dL (70-110)
[2019-01-25 11:25] LABS: Bedside Glucose 149 mg/dL (70-110)
--- NOTE | 2019-01-25 12:39 | DCINST_ITS ---
- Discharge Diagnoses Current Active Problems: Current Active and Chronic Problems (Last Updated 01/24/19 @ 19:00 by Jennifer Mahan) Essential (primary) hypertension (Chronic) You will use the following diet at home:: Calorie/Carbohydrate Controlled (specify 1200, 1400, etc) - 1600, Cardiac Your food should be the consistency of: Regular Your liquids should be the consistency of: Regular/Thin Discharge Activity: Return to Normal Activity Call your doctor if your incision/area has: Continuous Slow Oozing, Sudden Increased Bleeding, Increased Pain/ Swelling, Increased Redness, Foul Smelling Discharge Call your doctor if you observe: Fever of 101 or Higher, Shortness of breath, Dizziness, Fainting spells, Swelling in the ankles, Chest pain, Increased palpitations (irregular heartbeat) Allergies/Adverse Reactions: Allergies adhesive Allergy (Verified 01/23/19 08:19) Rash bacitracin [From Neosporin ([id number])] Allergy (Verified 01/23/19 08:19) Rash bacitracin zinc [From Neosporin ([id number]-[id number])] Allergy (Verified 01/23/19 08:19) Rash neomycin sulfate [From Neosporin (ikc-bbr-zoidm)] Allergy (Verified 01/23/19 08:19) Rash polymyxin B [From Neosporin ([id number])] Allergy (Verified 01/23/19 08:19) Rash Ixdnmky-Ikp-Xqp Reductase Inhibitor Allergy (Verified 01/23/19 08:19) MUSCLE WEAKNESS morphine Adverse Reaction (Verified 01/23/19 08:19) Other Medications to take at Discharge buPROPion XL [Wellbutrin Xl] 300 mg PO DAILY 02/23/14 levothyroxine 200 mcg tablet 200 mcg PO QDAY #90 tab 11/20/17 proMETHazine tablet [Phenergan tablet] 25 mg PO Q6H PRN PRN #10 tab 12/04/17 Aspirin E.C. [Ecotrin] 81 mg PO QHS 01/30/18 Hydrochlorothiazide [Hctz] 25 mg PO DAILY 01/30/18 Hydrocodone/Acetaminophen [[place] 5-325 Tablet] 1 tab PO PRN PRN 01/30/18 Nitroglycerin (INPATIENT USE) [Nitrostat] 0.4 mg SUBLINGUAL Q5M PRN #120 tab 02/01/18 insulin lispro (U-100) 100 unit/mL subcutaneous solution See Rx Instructions SC DAILY #150 ml 02/05/18 Contour Next Test Strips See Dose Instructions .ROUTE .MEDSUPPLY #750 ea NS 05/07/18 cyclobenzaprine 10 mg tablet 5 - 10 mg PO PRN PRN 30 Days #30 tab 07/03/18 isosorbide mononitrate ER 30 mg tablet,extended release 24 hr 30 mg PO QAM #90 tab 07/03/18 metoprolol succinate ER 50 mg tablet,extended release 24 hr 50 mg PO QDAY #90 tab 07/03/18 valacyclovir 500 mg tablet 500 mg PO DAILY PRN 07/03/18 Lisinopril 20 mg PO QHS 01/23/19 Ticagrelor [Brilinta] 90 mg PO BID 01/23/19 Orders to be completed after discharge: Phase II, Outpatient Cardiac Rehab Location: None Selected Primary Care Physician: Angela Canchola MD [Primary Care Provider] - Please follow up with your Primary Care Physician in: 3-5 days Test Results: Test results from this visit will be discussed in further detail at your follow- up appointment, if applicable. Please Follow Up With: Nolberto Toscano MD When: 1-2 weeks
--- NOTE | 2019-01-25 12:40 | DS.PCM_ITS ---
Discharge Date and Diagnosis Date of Admission: 01/23/19 Date of Discharge: 01/25/19 - Secondary Discharge Diagnosis Chronic Problems (Last Updated 01/24/19 @ 19:00 by Jennifer Mahan) Atherosclerotic heart disease of [place] coronary artery without angina pectoris (Chronic) NSTEMI (non-ST elevated myocardial infarction) (Chronic 01/23/19) 09/18/17 and 01/23/19 Essential (primary) hypertension (Chronic) Hyperlipidemia (Chronic) Hospital Course and Treatment Imaging Results: CXR: IMPRESSION: Stable examination. No acute abnormality is seen. Cardiac Cath: CONCLUSIONS Triple vessel CAD of the LAD, Ramus, LCX RCA Segmented LV systolic dysfunction- Mild Successful PCI with PTCA to the distal LAD ISR with a 2.0 x 12 Balloon, followed by a 2.0 x 10 Angiosculpt; 90%-->0%, no dissection. RECOMMENDATIONS Referred for immediate PCI Surgery consult for coronary revascularization Highly recommend quitting all tobacco products Follow up with primary liturgical music director Risk factor modification ASA Indefinitley Plavix for at least 12 months Routine post interventional care Refer for Outpatient Cardiac Rehab Manual sheath removal per protocol Follow up with Dr. Toscano Refer to Dr Tariq for CABG to LAD, ?Ramus, LCX and RCA. I would NOT recommend any additional stenting given pt's predisposition for aggressive in stent restenosis. D/w Dr Castro and Dr Tariq. Pt will need 1 month of DAPT, followed by CABG, followed by surgery on R knee. Successful Mynx Control closure. Consults: Cardiology Operations: None Procedures: Cardiac catheterization Summary of Care Provided: Per HPI: The patient is a 53 year old F with a PMH as below who presents with chest pain that started this morning around 6 AM. She woke up and went to the bathroom and as she was walking back to bed that when she had her chest pain. She took 2 Tylenol thinking it could be muscular skeletal, however when it did not resolve she presented to the ER. She states that it felt very similar to her previous chest pain when she had her NSTEMI and had stents placed about a year ago mother this time it was on the right side of her chest instead of the center of her chest. It did go to her right shoulder but denies any shortness of breath or lightheadedness with the episode. She currently states that her chest pain has resolved with fentanyl that was given to her in the ER, and in the ER she had a troponin which was negative at 0.038, and an EKG with nonische antoinette changes. She has been on her aspirin and her Brilinta since her last stent in January. Hospital Course: 1. Chest pain/CAD s/p stent/HTN/HLD/morbid obesity- 53 yo F with an extensive cardiac history presented to the ED with chest pain that started on the morning of admission with mild exertion. Initially EKG and troponin in the ED were normal, however she had an elevated on her troponins after her initial evaluation, with a peak to 2.69. She was taken for cardiac cath which found disease have been most amenable to surgical intervention, see cath report. No changes were made to her current medications, she was discharged on aspirin and Brilinta which she will need to continue with for a month prior to any heart surgery. She is also continuing her hydrochlorothiazide, isosorbide mononitrate, lisinopril, metoprolol. Lipid panel on admission demonstrated an LDL of 79 with an HDL 46 and a total cholesterol of 146 with triglycerides of 104. She will need to follow-up with cardiology in 1 to 2 weeks as well as cardiothoracic surgery in about a month for evaluation CABG. Is also extensive discussion about lifestyle modifications given her BMI of 49.6. She should be on a calorie restricted diet and once her cardiac situation is resolved, to proceed with an exercise regimen. Discharge planning was discussed with her and she understood the risks and benefits of going home and agreed to being discharged today. 2. Her other medical diagnoses were evaluated and her home medications were continued where appropriate Objective: General: Alert, Oriented x3, Cooperative, No apparent distress HEENT: Atraumatic, PERRLA, EOMI, Normocephalic Oral: Moist Mucosa Neck: Supple, No JVD Lungs: Clear to auscultation, Normal air movement, No rhonchi, No wheeze, No rales, Diminished Cardiovascular: Regular rate, Regular Rhythm, Normal S1, Normal S2, No murmurs Abdomen: Soft, Non Tender, Non-Distended, No Hepato-splenomegaly, Obese Extremities: Capillary Refill Less than 3 Seconds, Edema - Trace bilateral pitting edema Skin: No rashes, No breakdown Neurological: Neuro grossly intact, Sensory exam intact to light touch and pain Psych/Mental Status: Normal Affect, Appropriate - Physical Exam Vital Signs Temp Pulse Resp BP Pulse Ox 98.2 F 74 26 H 101/40 L 96 01/25/19 12:00 01/25/19 12:00 01/25/19 12:00 01/25/19 12:00 01/25/19 12:00 Oxygen Flow Rate (L/min) 2 Oxygen Delivery Method Room Air Weight: 307 lb 5.19 oz Body Mass Index (BMI) 49.6 Intake and Output for Last 24 Hours 01/23/19 01/24/19 01/25/19 23:59 23:59 23:59 Intake Total 400 / 400 1647.0 / 2127.0 960 / 960 Output Total 900 / 900 2650 / 3450 800 / 800 Balance -500 / -500 -1003.0 / -1323.0 160 / 160 Laboratory Tests Past 24 Hrs 01/25/19 01/25/19 05:50 05:50 WBC 11.4 H RBC 4.09 L Hgb 11.8 L Hct 36.2 L MCV 88.5 MCH 28.9 MCHC 32.6 RDW Std Deviation 47.2 H RDW Coeff of [place] 14.4 Plt Count 340 MPV 9.4 Sodium 137 Potassium 3.7 Chloride 103 Carbon Dioxide 28.0 Anion Gap 6 BUN 17 Creatinine 0.84 Estim Creat Clear Calc 74.17 Est GFR (MDRD) Af Amer 92 Est GFR (MDRD) Non-Af 76 BUN/Creatinine Ratio 20.2 H Glucose 135 H Calcium 8.7 Total Bilirubin 0.20 AST 11 L ALT 13 Alkaline Phosphatase 110 Total Protein 6.9 Albumin 2.7 L Globulin 4.2 Albumin/Globulin Ratio 0.6 L POC Glucose 01/25/19 01/25/19 01/24/19 11:21 07:52 22:04 POC Glucose 149 H 122 H 177 H 01/24/19 01/24/19 17:33 12:49 POC Glucose 226 H 318 H Discharge Activity: Return to Normal Activity Call your doctor if your incision/area has: Continuous Slow Oozing, Sudden Inc reased Bleeding, Increased Pain/ Swelling, Increased Redness, Foul Smelling Discharge Call your doctor if you observe: Fever of 101 or Higher, Shortness of breath, Dizziness, Fainting spells, Swelling in the ankles, Chest pain, Increased palpitations (irregular heartbeat) Home Medications: Medications to take at Discharge buPROPion XL [Wellbutrin Xl] 300 mg PO DAILY 02/23/14 levothyroxine 200 mcg tablet 200 mcg PO QDAY #90 tab 11/20/17 proMETHazine tablet [Phenergan tablet] 25 mg PO Q6H PRN PRN #10 tab 12/04/17 Aspirin E.C. [Ecotrin] 81 mg PO QHS 01/30/18 Hydrochlorothiazide [Hctz] 25 mg PO DAILY 01/30/18 Hydrocodone/Acetaminophen [[place] 5-325 Tablet] 1 tab PO PRN PRN 01/30/18 Nitroglycerin (INPATIENT USE) [Nitrostat] 0.4 mg SUBLINGUAL Q5M PRN #120 tab 02/01/18 insulin lispro (U-100) 100 unit/mL subcutaneous solution See Rx Instructions SC DAILY #150 ml 02/05/18 Contour Next Test Strips See Dose Instructions .ROUTE .MEDSUPPLY #750 ea NS 05/07/18 cyclobenzaprine 10 mg tablet 5 - 10 mg PO PRN PRN 30 Days #30 tab 07/03/18 isosorbide mononitrate ER 30 mg tablet,extended release 24 hr 30 mg PO QAM #90 tab 07/03/18 metoprolol succinate ER 50 mg tablet,extended release 24 hr 50 mg PO QDAY #90 tab 07/03/18 valacyclovir 500 mg tablet 500 mg PO DAILY PRN 07/03/18 Lisinopril 20 mg PO QHS 01/23/19 Ticagrelor [Brilinta] 90 mg PO BID 01/23/19 Other Amb Orders: Phase II, Outpatient Cardiac Rehab Location: None Selected Primary Care Physician: Angela Canchola MD [Primary Care Provider] - Please follow up with your Primary Care Physician in: 3-5 days Please Follow Up With: Nolberto Toscano MD When: 1-2 weeks Disposition: Home Minutes spent on discharge:: 35 Patient Condition:: Stable Medical Necessity - Tobacco Use Smoking Status: Former smoker Tobacco Use: Cigarettes Meaningful Use Info Meaningful Use Diagnoses (Choose all that apply): None applicable Code Visit Inpatient E&M: 63519 Disch Hosp
--- NOTE | 2019-01-25 15:23 | PCM.PN.CARD ---
Subjectve: Patient doing well this morning, no 24-hour events. Telemetry negative. Right groin is clean/dry/intact without evidence of thrills, bruits or hematoma. EKG is unchanged. Hemoglobin and creatinine are within nominal limits. Objective: Vital Signs Temp Pulse Resp BP Pulse Ox 98.2 F 73 18 138/74 H 96 01/25/19 12:00 01/25/19 13:00 01/25/19 13:00 01/25/19 13:00 01/25/19 13:00 Oxygen Flow Rate (L/min) 2 Oxygen Delivery Method Room Air Weight: 307 lb 5.19 oz Body Mass Index (BMI) 49.6 Intake and Output for Last 24 Hours 01/23/19 01/24/19 01/25/19 23:59 23:59 23:59 Intake Total 400 / 400 1647.0 / 2127.0 960 / 960 Output Total 900 / 900 2650 / 3450 800 / 800 Balance -500 / -500 -1003.0 / -1323.0 160 / 160 General: Awake, Alert, Oriented x 3 HEENT: PERRL, EOMI, Sclera Non Icteric Neck: Supple, Good ROM, No Lymph Node Enlargement Lungs: Clear to auscultation Cardiovascular: Regular Rhythm, Normal S1, Normal S2, No Murmurs, No Rubs, No Gallops Vascular: No Carotid Bruits, Normal Femoral Pulses, Normal Radial Pulses, Normal Dorsalis Pedal Pulse, Normal Posterior Tibial Pulses Abdomen: Bowel Sounds Present, Soft, Non Tender, No HSM, No Organomegaly Extremities: No Cyanosis, No Clubbing, No edema Neurological: No Focal Motor or Sensory Deficit 01/25/19 05:50: WBC 11.4 H, RBC 4.09 L, Hgb 11.8 L, Hct 36.2 L, MCV 88.5, MCH 28.9, MCHC 32.6, Plt Count 340, MPV 9.4 01/25/19 05:50: Sodium 137, Potassium 3.7, Chloride 103, Carbon Dioxide 28.0, Anion Gap 6, BUN 17, Creatinine 0.84, Est GFR (MDRD) Af Amer 92, Est GFR (MDRD) Non-Af 76, BUN/Creatinine Ratio 20.2 H, Glucose 135 H, Calcium 8.7, Total Bilirubin 0.20 Rhythm: EKG: ECHO: Stress Test: Cardiac Cath: PCI: CT Surgery: Holter monitor: EPS: PPM: CXR: Chest CT Scan: Medical Necessity - Tobacco Use Smoking Status: Former smoker Tobacco Use: Cigarettes Assessment/Plan 1. Coronary artery disease: Patient presents with unstable angina, superimposed on dynamic EKG changes, and mildly elevated troponin. Patient has a known history of multivessel coronary disease, with multiple stenting to her LAD, ramus intermedius, and FloWire evaluation of her RCA in January 2018. Unfortunately due to her MCL tear she was unable to complete cardiac rehab, and is a diabetic on insulin pump making her risk of recurrent coronary ethyl sclerosis somewhat elevated. Patient underwent repeat catheterization on 01/24/2019 which identified aggressive in-stent restenosis of her distal LAD stents, and complete occlusion of her previously placed ramus intermedius stents that had balloon angioplasty in January 2018. Patient underwent successful balloon angioplasty and angioscope of her distal LAD in-stent restenosis in order to provide a roadmap for a surgeon to possibly bypass her LAD. She also had what appeared to be a 65 to 70% stenosis in her mid right coronary artery as well as a 75 to 80% ostial left circumflex stenosis. After weighing the options for the patient, we have agreed that she would best benefit from bypass surgery to her ramus intermedius if able to be accessed, her distal LAD again if able to be accessed, her obtuse marginal and her PDA given her right to left collaterals to her LAD septals. I discussed with Dr. Nando Orona at [facility], and referred her back to him for multivessel bypass surgery and he is agreed to accept her. Arrangements will be made for the patient to see Dr. Gimenez as an outpatient. She will require ongoing dual antiplatelet therapy given her balloon angioplasty and angioscope of her in-stent restenosis on 01/24/2019. From my standpoint she may be discharged home and follow-up with me going forward. In addition she will continue her Toprol, Imdur, and lisinopril. 2. Hyperlipidemia: Recommend obtaining a fasting lipid profile. Her LDL should be less than 70. Unfortunately she is unable to take statins. We may consider gemfibrozil. 3. Thank you very much for the opportunity to participate in the cardiac care of your patient. Patient may be discharged home. Code Visit Inpatient E&M: 90649 Subs Hosp L2
--- NOTE | 2019-01-28 13:31 | CASEMGMT ---
DEBBY CM DC PHONE CALL DC DATE: 01/25/19 DC Disposition: Home Diagnosis on Discharge: CAD LACE/STRATA: 01/10 Attempted call to phone. No answer and no machine pick up and delivery driver. Rey CARRASQUILLON RN ACM
== END 2019-01-25 15:05 | disposition home or self-care (01) | DRG 251 ==
LOC: ED 10:08 → PCU 10:59 → ICU 01-24 09:05 → PCU 01-24 12:08
PROVIDERS: Internal Medicine Cardiovascular Disease; Admitting Provider Family Medicine; Emergency Provider Emergency Medicine; Family Provider Internal Medicine; PCP Internal Medicine; Visit Provider Family Medicine
DX: I21.4 Non-ST elevation (NSTEMI) myocardial infarction (principal); I50.22 Chronic systolic (congestive) heart failure; Z68.42 Body mass index [BMI] 45.0-49.9, adult; T82.855A Stenosis of coronary artery stent, initial encounter; Y83.1 Surgical operation with implant of artificial internal device as the cause of abnormal reaction of the patient, or of later complication, without mention of misadventure at the time of the procedure; I11.0 Hypertensive heart disease with heart failure; E11.319 Type 2 diabetes mellitus with unspecified diabetic retinopathy without macular edema; E11.42 Type 2 diabetes mellitus with diabetic polyneuropathy; E03.9 Hypothyroidism, unspecified; E78.5 Hyperlipidemia, unspecified; F32.9 Major depressive disorder, single episode, unspecified; F41.9 Anxiety disorder, unspecified; E66.01 Morbid (severe) obesity due to excess calories; Z79.02 Long term (current) use of antithrombotics/antiplatelets; Z79.82 Long term (current) use of aspirin; Z79.4 Long term (current) use of insulin; Z96.41 Presence of insulin pump (external) (internal); Z79.899 Other long term (current) drug therapy; I25.2 Old myocardial infarction; Z95.5 Presence of coronary angioplasty implant and graft
CPT/HCPCS: 36415; 71045; 80048; 80053; 80061; 81025; 82962; 84484; 85025; 85027; 85347; 92920; 93005; 93458; 99152; 99153; 99285; C1760; J7030; A4216; C1725; C1769; C1887; C1894; J2405; Q9967

== ENCOUNTER → 2019-02-19 14:47 | Outpatient (CLI) | payer BC, SELFPAY ==
[2018-01-31 13:46] VITALS: BMI 45.4
[2019-02-05 12:15] VITALS: BMI 48.9
--- NOTE | 2019-02-19 14:49 | ECHOCS_ITS ---
Reason For Study: CAD Procedure This was a 2D Doppler, Color Flow transthoracic echocardiogram. The study was technically difficult. Contrast injection was performed. Exam performed in department. Left Ventricle Normal LV size. Segmental dysfunction with preserved ejection fraction (see wall motion). The estimated ejection fraction is 65 %. Transmitral doppler flow suggestive of impaired relaxation of left ventricle. Anterior [place] : Hypokinetic. Inferior [place] : Hypokinetic. Right Ventricle Normal RV size. Normal systolic function. Atria Normal left atrium. Normal right atrium. No doppler evidence for ASD. Mitral Valve There is no mitral annular calcification. Mitral valve not well visualized. Tricuspid Valve The tricuspid valve is not well visualized. Aortic Valve The aortic valve is not well visualized. Pulmonic Valve The pulmonic valve is not well visualized. Great Vessels The aortic root is not well visualized. Pericardium/Pleural No pericardial effusion. Medication 22 gauge I.V. with prn adaptor inserted into right arm. Diluted definity 3ml given slow IV push to enhance endocardial definition. MMode/2D Measurements & Calculations LVIDd: 3.8 cm FS: 38.1 % LAV(MOD-bp): 46.4 ml LVIDs: 2.4 cm LAV(MOD-bp) Indexed: 19.2 ml/m2 LAV(MOD-sp2): 42.6 ml LAV(MOD-sp4): 46.3 ml LA dimension(2D): 3.0 cm LA A4 area: 17.8 cm2 RA A4 area: 12.8 cm2 Doppler Measurements & Calculations MV E max keyon: 86.5 cm/sec Lat Peak E' Keyon: 9.5 cm/sec Med Peak E' Keyon: 6.5 cm/sec MV A max keyon: 100.6 cm/sec E/E' lat: 9.1 E/E' med: 13.4 MV E/A: 0.86 Ao V2 max: 168.2 cm/sec LV V1 max: 105.3 cm/sec PA V2 max: 97.1 cm/sec Ao max P.3 mmHg LV V1 max P.4 mmHg Interpretation Summary The study was technically difficult. Contrast injection was performed. Segmental dysfunction with preserved ejection fraction (see wall motion). The estimated ejection fraction is 65 %. Transmitral doppler flow suggestive of impaired relaxation of left ventricle Ordering Physician: MALIA GARCIA Referring Physician: [facility] , Out of Performed By: Jannet Valerio RDCS
== END ==
PROVIDERS: Family Provider Internal Medicine; PCP Internal Medicine
DX: I25.10 Atherosclerotic heart disease of native coronary artery without angina pectoris (principal)
CPT/HCPCS: 93306; Q9957; A4216; C8929

== ENCOUNTER 2020-03-29 18:34 | Emergency (ER) | payer SELFPAY ==
[2018-01-31 13:46] VITALS: BMI 45.4
[2019-07-18 11:55] VITALS: BMI 48.9
[2020-03-29 18:35] VITALS: BP 152/92; PULSE 70; RESP 20; TEMP 36.6; O2SAT 100; BMI 54.0
--- NOTE | 2020-03-29 18:51 | EKG12_ITS ---
Test Reason : REPEAT Blood Pressure : / mmHG Vent. Rate : 071 BPM Atrial Rate : 071 BPM P-R Int : 182 ms QRS Dur : 076 ms QT Int : 446 ms P-R-T Axes : 018 -09 061 degrees QTc Int : 484 ms Sinus rhythm with occasional Premature ventricular complexes Low voltage QRS Poor R wave progression Nonspecific T wave abnormality Confirmed by MATTY BECERRIL, ANAYELI ([id number]), technical writer and editor RAGHU DIAMOND ([id number]) on 04/01/2020 11:10:08 AM Referred By: ITALIA Confirmed By:ANAYELI STARR MD
[2020-03-29] MEDS: Aspirin 81 MG TAB.CHEW 324 MG PO (18:59)
[2020-03-29 19:00] VITALS: O2SAT 99
--- NOTE | 2020-03-29 19:00 | ED.VIS.GEN ---
History of Present Illness Chief Complaint: Chest Pain Narrative: Patient is a 54-year-old female who presents with chest pain. He does have a history of diabetes hypertension coronary artery disease with stents and bypass. She notes however that her current chest pain does not feel similar to prior episodes of angina or pain she had with her prior heart attack. She complains of intermittent left-sided chest pain for the past 4 days. This is worsened with palpation or movement of the arm or torso. She has had some relief with Tylenol. This lasts for less than 1 minute at a time. She does not have associated dizziness diaphoresis shortness of breath nausea or vomiting. She states she was just worried given her prior heart history. She does have some edema of her lower extremities which is chronic. She states is a little bit worse today because she was out shopping today. Past Medical History - Allergies and Home Meds Allergies/Adverse Reactions: Allergies adhesive Allergy (Verified 03/29/20 18:38) Rash bacitracin [From Neosporin ([id number])] Allergy (Verified 03/29/20 18:38) Rash bacitracin zinc [From Neosporin ([id number])] Allergy (Verified 03/29/20 18:38) Rash neomycin sulfate [From Neosporin ([id number]-rec-[id number])] Allergy (Verified 03/29/20 18:38) Rash polymyxin B [From Neosporin ([id number]-[id number])] Allergy (Verified 03/29/20 18:38) Rash Ztggkyj-Svp-Ugw Reductase Inhibitor Allergy (Verified 03/29/20 18:38) MUSCLE WEAKNESS Primary Care Physician: Angela Canchola MD [Primary Care Provider] - Past Medical History: - - Diabetes, hypertension, coronary artery disease Surgical History: - - History of , 2 D&Cs, tonsillectomy, 7 laser surgeries on her eyes Smoking Status: Never smoker - Family History Maternal Family History: Family History (Last Reviewed 07/18/19 @ 11:52 by Kellee LEE, PA) Other CVA (cerebral vascular accident) Heart disease Hypertension Thyroid disorder Family History: Reports: Stroke Review of Systems All systems negative except as indicated General: Denies: Fever Eyes: Denies: Visual changes - bilaterally ENT: Denies: Bilateral ear pain Cardiovascular: Reports: Chest pain Respiratory: Denies: Dyspnea, Cough Gastrointestinal: Denies: Abdominal pain, Nausea, Vomiting, Diarrhea Musculoskeletal: Reports: Swelling. Denies: Myalgias, Arthralgias Skin: Denies: Rash Neurological: Denies: Headache Hematologic: Denies: Easy bruising Allergy: Denies: Uticaria Physical Exam Vital Signs/Narrative: Vital Signs Temp Pulse Resp BP Pulse Ox 03/29/20 18:35 97.9 F 70 20 H 152/92 H 100 Inital Vital Signs reviewed: Yes General: Well nourished, Well developed Head: Normocephalic Eyes: EOMI ENT: Moist mucous membranes Neck: Supple Cardiovascular: Regular rate, Regular rhythm Respiratory: No distress, CTA bilaterally Abdomen: Soft, Nontender Extremities: Nontender, - - 2+ symmetric pitting lower extremity edema Skin: Normal color Neurological: Alert Psychological: Normal affect Diagnostic/Tx/Re-eval Impressions Chest X-Ray 03/29/20 19:02 IMPRESSION: Normal x-ray examination of the chest. Electronically Signed: Marianne Hylton MD at 19:32 EST Tel , Service support , Chest CTA 03/29/20 19:36 IMPRESSION: 1. No pulmonary embolism or arterial dissection. Negative study. Electronically Signed: Marianne Hylton MD at 20:27 EST Tel , Service support , 03/29/20 19:02 Chest 1 View (Portable) [RAD] Stat 03/29/20 19:36 CTA Chest W/WO Contrast [CT] Stat Laboratory Results 03/29/20 03/29/20 03/29/20 18:54 18:54 18:54 WBC 11.5 H RBC 4.58 Hgb 14.4 Hct 43.5 MCV 95.0 MCH 31.4 MCHC 33.1 RDW Std Deviation 45.1 H RDW Coeff of [place] 13.0 Plt Count 381 MPV 9.7 Immature Gran % (Auto) 0.500 Neut % (Auto) 68.2 Lymph % (Auto) 21.7 [place] % (Auto) 6.0 Eos % (Auto) 3.0 Baso % (Auto) 0.6 Absolute Neuts (auto) 7.9 H Absolute Lymphs (auto) 2.49 Nucleated RBC % 0 D-Dimer Quant (PE/DVT) 0.55 H* Sodium 136 Potassium 3.9 Chloride 103 Carbon Dioxide 29.0 Anion Gap 4 L BUN 12 Creatinine 0.80 Estim Creat Clear Calc 79.99 Est GFR (MDRD) Af Amer 96 Est GFR (MDRD) Non-Af 80 BUN/Creatinine Ratio 15.0 Glucose 116 H Calcium 9.1 Troponin I < 0.015 POC Glucose 03/29/20 20:29 WBC RBC Hgb Hct MCV MCH MCHC RDW Std Deviation RDW Coeff of [place] Plt Count MPV Immature Gran % (Auto) Neut % (Auto) Lymph % (Auto) [place] % (Auto) Eos % (Auto) Baso % (Auto) Absolute Neuts (auto) Absolute Lymphs (auto) Nucleated RBC % D-Dimer Quant (PE/DVT) Sodium Potassium Chloride Carbon Dioxide Anion Gap BUN Creatinine Estim Creat Clear Calc Est GFR (MDRD) Af Amer Est GFR (MDRD) Non-Af BUN/Creatinine Ratio Glucose Calcium Troponin I POC Glucose 130 H - Medical Decision Making Initial EKG shows sinus rhythm at a rate of 74. atient has T wave inversions in leads V1 V2, this is unchanged from prior EKG. Chest x-ray shows no acute process. Troponin is undetectable. CBC and BMP unremarkable. Given the patient's sharp pleuritic component to her pain a D-dimer was obtained. This is greater than 0.5 so CTA was obtained which is negative for pulmonary embolism. Repeat EKG shows sinus rhythm with occasional PVC, T wave inversions in V1 and V2 unchanged from prior. Given the patient's very atypical description of symptoms and the fact that she states this feels nothing like her previous angina or NV I feel she can be safely ruled out with a delta troponin and follow-up as an outpatient as long as this remains negative. Patient signed out to the oncoming physician to follow-up on delta troponin but plan is discharge if negative. Patient is agreeable to this plan she does understand return for new or worsening symptoms. ED Disposition - Plan for ED Patient: Disposition: Home or Assisted Living Diagnosis: Chest pain Instructions: ED Chest Pain, Noncardiac Referrals: Angela Canchola MD [Primary Care Provider] -
--- NOTE | 2020-03-29 19:02 | RAD_ITS ---
STUDY: X-RAY CHEST REASON FOR EXAM: Female, 54 years old. CHEST PAIN x4 DAYS, WORSE WITH DEEP INSPIRATION -- HX OF HTN AND KS x2 WITH CABG TECHNIQUE: Single AP portable view of the chest. COMPARISON: 01/23/2019. FINDINGS: The lungs are clear and expanded. There is no demonstrated pleural abnormality. Normal size heart. Sternotomy wires are present. Normal mediastinum and vanessa. Normal visualized pulmonary arteries. Normal visualized aortic arch and descending thoracic aorta. Normal visualized thoracic spine. Normal visualized ribs, clavicles, and shoulders. There is no demonstrated abnormality of the visualized soft tissue structures of the upper abdomen. RAD/Chest 1 View (Portable) IMPRESSION: Normal x-ray examination of the chest. Electronically Signed: Marianne Hylton MD at 19:32 EST Tel , Service support ,
[2020-03-29 19:07] LABS: Absolute Lymphocyte Count 2.49 X10^3/uL (0.83-4.51); Absolute Neutrophil Count 7.9 X10^3/uL (2.0-7.7); Basophil# 0.07 X10^3/uL; Basophil% 0.6 % (0-1); Eosinophil# 0.34 X10^3/uL; Hematocrit 43.5 % (37-47); Hemoglobin 14.4 g/dL (12.0-15.0); Lymphocyte # 2.49 X10^3/ul (4.0); Lymphocyte % 21.7 % (19-41); Mean Corp Hgb Conc 33.1 g/dL (32-36); Mean Corpuscular Hgb 31.4 pg (27.0-32.0); Mean Platelet Vol. 9.7 fl (6.2-12.0); Monocyte# 0.69 X10^3/uL; NRBC Flagged by Analyzer 0 % (0-5); Neutrophil # 7.85 X10^3/uL (2.7-7.7); Neutrophil % 68.2 % (47-70); Platelet Count 381 K/mm3 (150-450); RBC Distribution Width SD 45.1 fl (35.1-43.9); Red Blood Count 4.58 M/mm3 (4.2-5.4); White Blood Count 11.5 K/mm3 (4.4-11.0)
[2020-03-29 19:17] LABS: Anion Gap 4 (5-15); BUN 12 mg/dL (7-18); Calcium,Total 9.1 mg/dL (8.5-10.1); Chloride 103 mmol/L (98-107); EST Glomerular Filtration Rate 80 mL/min (>60); Est Glom Filt Rate - Afr Amer 96 mL/min (>60); Estimated Creatinine Clearance 79.99 ml/min; Glucose 116 mg/dL (74-106); Potassium 3.9 mmol/L (3.5-5.1); Sodium Level 136 mmol/L (136-145)
[2020-03-29 19:29] LABS: D-Dimer Quantitative (DVT/PE) 0.55 FEU/ug/m (0.27-0.49)
--- NOTE | 2020-03-29 19:36 | CT_ITS ---
STUDY: CTA CHEST REASON FOR EXAM: Female, 54 years old. CP/ELEV DDIMER. Prior 4 vessel CABG 2018 RADIATION DOSAGE (If Supplied By Facility): CTDIvol = ( 12.66 ) mGy, DLP = ( 479.59 ) mGycm TECHNIQUE: The examination was performed with the intravenous administration of IV 100mL Isovue-300. Post-processing of the angiographic images was performed, with multiplanar reformation and 3D reconstruction. Individualized dose optimization techniques were used for this CT. COMPARISON: 09/17/2017. FINDINGS: The heart and pericardium are normal. The aorta is normal in caliber. No aneurysm or dissection. There is no mediastinal mass or adenopathy. There is no hilar or axillary adenopathy. There is no evidence of pulmonary embolus. There is no pleural effusion. There is no pulmonary consolidation. Visualized abdomen is unremarkable. There is no osseous abnormality. CT/CTA Chest W/WO Contrast IMPRESSION: 1. No pulmonary embolism or arterial dissection. Negative study. Electronically Signed: Marianne Hylton MD at 20:27 EST Tel , Service support ,
[2020-03-29 20:35] VITALS: BP 151/77; PULSE 68; RESP 19; O2SAT 98
[2020-03-29 20:36] LABS: Bedside Glucose 130 mg/dL (70-110)
--- NOTE | 2020-03-29 21:40 | EKG12_ITS ---
Test Reason : CP Blood Pressure : / mmHG Vent. Rate : 074 BPM Atrial Rate : 074 BPM P-R Int : 172 ms QRS Dur : 084 ms QT Int : 428 ms P-R-T Axes : 032 -13 066 degrees QTc Int : 475 ms Sinus rhythm with occasional Premature ventricular complexes Low voltage QRS Poor R wave progression Nonspecific T wave abnormality Confirmed by MATTY BECERRIL, ANAYELI ([id number]), editor house organ RAGHU DIAMOND ([id number]) on 04/01/2020 11:10:30 AM Referred By: ITALIA Confirmed By:ANAYELI STARR MD
[2020-03-29 22:00] VITALS: BP 116/79; PULSE 68; RESP 15; O2SAT 99
== END 2020-03-29 23:11 | disposition home or self-care (01) ==
PROVIDERS: Emergency Provider Emergency Medicine; PCP Internal Medicine
DX: R07.9 Chest pain, unspecified (principal); I25.10 Atherosclerotic heart disease of native coronary artery without angina pectoris; I25.2 Old myocardial infarction; I10 Essential (primary) hypertension; E11.9 Type 2 diabetes mellitus without complications; Z95.1 Presence of aortocoronary bypass graft; Z95.5 Presence of coronary angioplasty implant and graft; Z79.82 Long term (current) use of aspirin; Z79.4 Long term (current) use of insulin; Z79.899 Other long term (current) drug therapy
CPT/HCPCS: 71045; 71275; 80048; 82962; 84484; 85025; 85379; 93005; 99285; Q9967; A4216

== ENCOUNTER 2022-01-27 12:21 | Emergency (ER) | payer SELFPAY ==
[2018-01-31 13:46] VITALS: BMI 45.4
[2022-01-27 12:22] VITALS: BP 171/84; PULSE 77; RESP 15; TEMP 35.8; O2SAT 97; BMI 52.4
--- NOTE | 2022-01-27 12:46 | RAD_ITS ---
STUDY: X-RAY - LEFT KNEE REASON FOR EXAM: Female, 56 years old. Pain and swelling TECHNIQUE: 4 view(s) of the knee. COMPARISON: None. FINDINGS: Normal visualized distal femur. Normal visualized proximal tibia and fibula. Normal proximal tibiofibular articulation. There is moderate degenerative arthrosis of the medial femorotibial compartment with moderate joint space narrowing. Normal lateral femorotibial compartment. There is mild degenerative arthrosis of the patellofemoral articulation. The soft tissue structures are unremarkable. RAD/Knee 4 or More Views IMPRESSION: Degenerative arthrosis. Electronically Signed: Bartolo Manzano MD at 13:24 EDT ,
--- NOTE | 2022-01-27 12:46 | ED.VIS.LOWEX ---
HPI History of Present Illness Chief Complaint: Lower Extremity Injury Informant: patient Narrative Narrative: Nontraumatic left knee pain for the past 2 days. Patient worse with bending. No paresthesias. History of previous MCL injury tear, each fall orthopedic than however has had heart attacks and CABG since then her CABG in 2019. Currently on baby aspirin. Using Tylenol. No history of issues in the left knee in the past. [facility] Medical History Acute systolic (congestive) heart failure Anxiety Arthritis Atherosclerotic heart disease of [place] coronary artery without angina pectoris Bone fracture Cat bite Cataracts, bilateral Chronic systolic (congestive) heart failure Diabetes Diabetes mellitus type 2 in obese Diabetic retinopathy associated with type 1 diabetes mellitus Diabetic retinopathy associated with type 2 diabetes mellitus Essential (primary) hypertension Hyperlipidemia Insulin pump titration Morbid obesity Neuropathy NSTEMI (non-ST elevated myocardial infarction) (01/23/19) Obesity Paresthesia of right upper extremity Polyneuropathy due to type 1 diabetes mellitus Postoperative infection of wound of sternum Presence of insulin pump Sedentary lifestyle Type 2 diabetes mellitus Vision abnormalities Home Medications bupropion HCl 300 mg 24 hr tablet, extended release 300 mg PO DAILY depression 02/23/14 [History Last Taken 01/26/22] Contour Next Test Strips (blood sugar diagnostic) #750 ea 05/07/18 [Rx Last Taken Unknown] nitroglycerin 0.4 mg sublingual tablet 0.4 mg sublingual Q5-15M PRN Cardiac/Chest Pain #25 tabs 05/05/20 [Rx Last Taken Unknown] acetaminophen 500 mg tablet 1,000 mg PO TID PRN PRN Pain 01/27/22 [History Last Taken 01/26/22] ascorbic acid (vitamin C) 3 gummy PO/SL DAILY SUPPLEMENT 01/27/22 [History Last Taken 5 Days Ago ~01/22/22] aspirin 81 mg chewable tablet 81 mg PO DAILY heart health 01/27/22 [History Last Taken 01/26/22] cyclobenzaprine 10 mg tablet 10 mg PO DAILY PRN Muscle Pain 01/27/22 [History Last Taken 01/26/22] insulin lispro 100 unit/mL subcutaneous solution (Humalog U-100 Insulin) See Rx Instructions .Route .COMPLEX 01/27/22 [History Last Taken 01/27/22] levothyroxine 200 mcg tablet (Levoxyl) 200 mcg PO DAILY thyroid 01/27/22 [History Last Taken 01/26/22] lisinopril 5 mg tablet 5 mg PO QHS high blood pressure 01/27/22 [History Last Taken 01/26/22] metoprolol succinate 100 mg tablet,extended release 24 hr 100 mg PO QHS heart 01/27/22 [History Last Taken 01/26/22] multivitamin 2 tab PO DAILY SUPPLEMENT 01/27/22 [History Last Taken 5 Days Ago ~01/22/22] oxycodone-acetaminophen 5 mg-325 mg tablet (Percocet) 1 tab PO Q6H PRN pain 3 days #12 tabs 01/27/22 [Rx Last Taken Unknown] Allergy/AdvReac Type Severity Reaction Status Date / Time adhesive Allergy Rash Verified 01/27/22 12:22 bacitracin Allergy Rash Verified 01/27/22 12:22 [From Neosporin ([id number])] bacitracin zinc Allergy Rash Verified 01/27/22 12:22 [From Neosporin ([id number]-upp-[id number])] neomycin sulfate Allergy Rash Verified 01/27/22 12:22 [From Neosporin ([id number])] polymyxin B Allergy Rash Verified 01/27/22 12:22 [From Neosporin ([id number]-dar-ewwgg)] Yijcise-UPT-BkB Reductase Allergy MUSCLE Verified 01/27/22 12:22 Inhibitor WEAKNESS [Accwutf-Lkt-Lkz Reductase Inhibitor] Family History Grandfather Alcoholism Myocardial infarction, Onset Age: 55 Grandmother Alcoholism Mother Depression Other CVA (cerebral vascular accident) Heart disease Hypertension Thyroid disorder Surgical History H/O coronary artery bypass surgery (02/25/19) History of section History of coronary artery stent placement (01/24/19) History of dilatation and curettage History of left heart catheterization (01/2018) History of surgical procedure on eye proper using laser History of tonsillectomy Social History Smoking Status: Never smoker alcohol intake: current alcohol intake frequency: holidays/special occasions only substance use type: does not use caffeine: Yes Type: coffee Number of servings: 3 ROS ROS ED Constitutional Constitutional ED: Denies chills, fever(s) or sweats Eyes Eyes: Denies change in vision ENT ENT ED: Denies dysphagia or sore throat Cardiovascular Cardiovascular: Denies chest pain, leg edema, palpitations or racing heartbeat Respiratory/Chest Respiratory/Chest: Denies cough, dyspnea or dyspnea on exertion Gastrointestinal Gastrointestinal: Denies abdominal pain, diarrhea, nausea or vomiting Genitourinary Genitourinary ED: Denies dysuria, hematuria or urinary frequency Musculoskeletal Musculoskeletal: Reports extremity pain and other Details: Left knee pain ; Denies back pain or neck pain Integumentary Denies rash or wounds Neurologic Neurologic: Denies headache(s), paresthesias or weakness EXAM Physical Exam Const Vital Signs: 01/27/22 12:22 Temperature 96.5 F L Temperature Source Temporal Pulse Rate 77 Respiratory Rate 15 Blood Pressure 171/84 H Blood Pressure Mean 113 Pulse Ox 97 Oxygen Delivery Method Room Air Positive well nourished and well developed General Appearance ED: well developed and NAD HEENT Reports moist mucous membranes normocephalic and atraumatic Eyes PERRL, EOMs intact bilaterally and conjunctivae normal General Eye ED: Yes normal appearance of both eyes Neck no lymphadenopathy and supple General: Negative for tenderness Chest Wall Chest: Negative for tenderness Resp normal respiratory effort and normal air movement Effort and Inspection: symmetric chest movement; Negative for respiratory distress Cardio regular rate, regular rhythm and no murmurs Peripheral Pulses: pulses 2+ throughout GI normal to inspection, nondistended, normoactive bowel sounds and non-tender Palpation: Negative for guarding or rebound tenderness present Back/Spine no CVA tenderness and no thoracic nor lumbar tenderness Extremity Extremity Narrative: Left lower extremity negative logroll knee extensor mechanism intact no varus and valgus negative Oneyda's. There is a positive patellar grind. Skin intact. No warmth. Neuro vas intact distally. General Extremety ED: Negative for edema or tenderness General Extremity: Negative for edema Neuro oriented x3 and no sensory deficits noted Sensorium / Orientation: awake and alert Skin no rashes or lesions noted and no wounds MDM MDM MDM Narrative Medical decision making narrative: Patient exam concerns for patellofemoral chondritis. These are new symptoms. 4 view x-ray left knee reviewed myself and read by radiology degenerative changes noted. No fractures. She drove her self here. She has coronary disease history of. We will avoid NSAIDs. Short prescription for Percocet for symptom control along with outpatient follow-up with orthopedics. All questions were answered. Radiography Diagnostic Testing: Clinical Impression(s) from Imaging Studies Knee X-Ray 01/27/22 12:46 IMPRESSION: Degenerative arthrosis. Electronically Signed: Bartolo Manzano MD at 13:24 EDT Reading Location ID and State: [address] [place] [address] , Service support , Discharge Plan Triage Chief Complaint: Lower Extremity Injury ED Provider: Isaca Leal Dx/Rx/DC Orders Clinical Impression: Patellofemoral chondrosis of left knee, Knee pain, left, CAD (coronary artery disease) Instructions: Common Kneecap (Patella) Problems, Knee Pain Prescriptions: New oxycodone-acetaminophen [Percocet] 5-325 mg tablet 1 tab PO Q6H PRN (Reason: pain) 3 Days Qty: 12 0RF No Action nitroglycerin 0.4 mg tablet, sublingual 0.4 mg SUBLINGUAL Q5-15M PRN (Reason: Cardiac/Chest Pain) Qty: 25 6RF bupropion HCl 300 MG tablet extended release 24 hr 300 mg PO DAILY multivitamin Tablet 2 tab PO DAILY cyclobenzaprine 10 mg Tablet 10 mg PO DAILY PRN (Reason: Muscle Pain) acetaminophen 500 mg Tablet 1,000 mg PO TID PRN PRN (Reason: Pain) aspirin [Aspirin Low-Strength] 81 mg Tablet,Chewable 81 mg PO DAILY lisinopril 5 mg tablet 5 mg PO QHS Label Comments: TAKE 1 TABLET BY MOUTH ONCE DAILY ascorbic acid (vitamin C) 3 gummy PO/SL DAILY metoprolol succinate 100 mg tablet extended release 24 hr 100 mg PO QHS levothyroxine [Levoxyl] 200 mcg tablet 200 mcg PO DAILY insulin lispro [Humalog U-100 Insulin] 100 unit/mL solution See Rx Instructions .ROUTE .COMPLEX Rx Instructions: via pump (DME) Contour Next Test Strips strip See Dose Instructions .ROUTE .MEDSUPPLY Qty: 750 3RF Dose Instruction: As directed Rx Instructions: As directed in communication with insulin pump up to monitor BG levels up to 8 times daily Primary Care Provider: Angela Canchola Referrals: Angela Canchola MD [Primary Care Provider] - Vladimir Rainey MD [Med Staff - Active Staff] - 5-7 Days Disposition Disposition: Home, Self Care Discharge Date/Time: 01/27/22 14:25
== END 2022-01-27 14:25 | disposition home or self-care (01) ==
PROVIDERS: Emergency Provider Emergency Medicine; PCP Internal Medicine; Visit Provider Emergency Medicine
DX: M22.2X2 Patellofemoral disorders, left knee (principal); I11.0 Hypertensive heart disease with heart failure; I50.22 Chronic systolic (congestive) heart failure; E11.40 Type 2 diabetes mellitus with diabetic neuropathy, unspecified; Z68.43 Body mass index [BMI] 50.0-59.9, adult; E66.01 Morbid (severe) obesity due to excess calories; Z79.4 Long term (current) use of insulin; E78.5 Hyperlipidemia, unspecified; I25.10 Atherosclerotic heart disease of native coronary artery without angina pectoris; I25.2 Old myocardial infarction; Z96.41 Presence of insulin pump (external) (internal); Z95.5 Presence of coronary angioplasty implant and graft; Z79.82 Long term (current) use of aspirin; Z79.899 Other long term (current) drug therapy
CPT/HCPCS: 73564; 99282

== ENCOUNTER 2023-08-18 22:02 | Emergency (ER) | payer BC, SELFPAY ==
[2018-01-31 13:46] VITALS: BMI 45.4
[2023-08-18 22:03] VITALS: BP 168/85; PULSE 87; RESP 20; TEMP 36.4; O2SAT 96
--- NOTE | 2023-08-18 22:45 | RAD_ITS ---
STUDY: X-RAY CHEST REASON FOR EXAM: Female, 58 years old. cough TECHNIQUE: Single AP portable view of the chest. COMPARISON: None. FINDINGS: Status post median sternotomy. The lungs are clear and expanded. There is no demonstrated pleural abnormality. Normal size heart. Normal mediastinum and vanessa. Normal visualized pulmonary arteries. Normal visualized aortic arch and descending thoracic aorta. Normal visualized thoracic spine. Normal visualized ribs, clavicles, and shoulders. There is no demonstrated abnormality of the visualized soft tissue structures of the upper abdomen. RAD/Chest 1 View (Portable) IMPRESSION: No active disease. Electronically Signed: Ignacio Moess MD at 23:34 EDT ,
--- NOTE | 2023-08-18 22:59 | EDS_ITS ---
HPI HPI - URI History of Present Illness Chief Complaint: Cold Sx Detail of Chief Complaint: Upper respiratory symptoms started 3 days Onset/Context/Timing Onset: Days (3) Context: Sudden Onset Timing: Continuous and Waxes and wanes Quality: Rhinorrhea, congestion, cough, dyspnea and wheezing Location: Upper respiratory Current Severity: Mild Maximum Severity: Moderate Worsened by: Not Worsened By Swallowing, Eating Solids or Drinking Liquids Relieved by: Not Relieved By Tylenol or NSAIDs Associated Symptoms Associated Symptoms: Positive for Nasal Congestion, Shortness of Breath and Productive Cough; Negative for Headache, Sinus Pressure, Myalgias, Nausea, Vomiting, Chest Pain, Nonproductive cough or Hemoptysis Narrative Narrative: Patient is a 58-year-old woman. She has history of type 1 diabetes, hypertension, hyperlipidemia, polyneuropathy due to diabetes and lymphedema who presents with nasal congestion, cough that is productive of whitish colored sputum with shortness of breath and wheezing. Symptoms started 3 days ago. Other family members were ill prior to her onset of illness. She denies headache, visual, ocular auditory symptoms. She denies ringing or ears or decreased hearing. Patient has abdominal pain, nausea, vomiting or diarrhea. Patient denies dysuria, frequency, urgency or hematuria. Patient denies history of PE or DVT. She states she has not been able to lie flat and her legs have increased in size. She denies history of obstructive sleep apnea. Prior similar symptoms: No Recent Illness/Hospitalization: No ROS ROS ED Constitutional Constitutional ED: Denies chills, fever(s), subjective or sweats Eyes Eyes: Denies blurry vision or change in vision ENT ENT ED: Reports rhinorrhea; Denies ear pain or sore throat Cardiovascular Cardiovascular: Reports orthopnea; Denies chest pain, palpitations or paroxysmal nocturnal dyspnea Respiratory/Chest Respiratory/Chest: Reports cough, dyspnea, dyspnea on exertion, orthopnea, sputum and other Details: Patient's orthopnea is chronic. There is a history of congestive heart failure. ; Denies paroxysmal nocturnal dyspnea Gastrointestinal Gastrointestinal: Denies abdominal pain, diarrhea, nausea or vomiting Genitourinary Genitourinary ED: Denies dysuria, hematuria or urinary frequency Musculoskeletal Musculoskeletal: Denies arthralgias or myalgias Integumentary Denies rash Neurologic Neurologic: Denies headache(s) or paresthesias Endocrine Endocrinology: Denies cold intolerance or heat intolerance Hematologic/Lymphatic Hematologic/Lymphatic: Denies easy bleeding or easy bruising PFSH PFS Medical History Acute systolic (congestive) heart failure Anxiety Arthritis Atherosclerotic heart disease of [place] coronary artery without angina pectoris Bone fracture Cat bite Cataracts, bilateral Chronic systolic (congestive) heart failure Diabetes mellitus type 2 in obese Diabetic retinopathy associated with type 1 diabetes mellitus Diabetic retinopathy associated with type 2 diabetes mellitus Essential (primary) hypertension Hyperlipidemia Insulin pump titration Morbid obesity Neuropathy NSTEMI (non-ST elevated myocardial infarction) (01/23/19) Obesity Paresthesia of right upper extremity Polyneuropathy due to type 1 diabetes mellitus Postoperative infection of wound of sternum Presence of insulin pump Sedentary lifestyle Type 2 diabetes mellitus Vision abnormalities Home Medications bupropion HCl 300 mg 24 hr tablet, extended release 300 mg PO DAILY depression 02/23/14 [History Last Taken 01/26/22] acetaminophen 500 mg tablet 1,000 mg PO TID PRN PRN Pain 01/27/22 [History Last Taken 01/26/22] cyclobenzaprine 10 mg tablet 10 mg PO DAILY PRN Muscle Pain 01/27/22 [History Last Taken 01/26/22] levothyroxine 200 mcg tablet (Levoxyl) 200 mcg PO DAILY thyroid 01/27/22 [History Last Taken 01/26/22] loratadine 10 mg tablet 10 mg PO DAILY 05/30/22 [History Last Taken Unknown] nitroglycerin 0.4 mg sublingual tablet 0.4 mg sublingual Q5-15M PRN Cardiac/Chest Pain #25 tabs 05/30/22 [Rx Last Taken Unknown] lisinopril 5 mg tablet 5 mg PO QHS high blood pressure #90 tabs 09/12/22 [Rx Last Taken Unknown] metoprolol succinate 100 mg tablet,extended release 24 hr 100 mg PO QHS heart #90 tabs 11/11/22 [Rx Last Taken Unknown] Accu-Chek Guide test strips (blood sugar diagnostic) #100 ea 01/10/23 [Rx Last Taken Unknown] aspirin 81 mg chewable tablet 81 mg PO ONCE #90 tabs 04/06/23 [Rx Last Taken Unknown] furosemide 40 mg tablet (Lasix) 40 mg PO DAILY PRN edema #30 tabs 04/06/23 [Rx Last Taken Unknown] carboxymethylcellulose sodium 1 % eye liquid gel drops 1 drp ophthalmic (eye) QHS PRN 07/03/23 [History Last Taken Unknown] ezetimibe 10 mg tablet 10 mg PO DAILY #90 tabs 07/03/23 [Rx Last Taken Unknown] insulin lispro 100 unit/mL subcutaneous solution (Humalog U-100 Insulin) 170 unit (1.7 mL) subcut DAILY #150 mL 07/03/23 [Rx Last Taken Unknown] prednisone 20 mg tablet 40 mg (2 x 20 mg) PO DAILY #10 TABLETS 08/19/23 [Rx Last Taken Unknown] Allergy/AdvReac Type Severity Reaction Status Date / Time adhesive Allergy Rash Verified 07/03/23 08:58 bacitracin Allergy Rash Verified 07/03/23 08:58 [From Neosporin ([id number])] bacitracin zinc Allergy Rash Verified 07/03/23 08:58 [From Neosporin ([id number])] neomycin sulfate Allergy Rash Verified 07/03/23 08:58 [From Neosporin ([id number])] polymyxin B Allergy Rash Verified 07/03/23 08:58 [From Neosporin ([id number])] Ptysjok-TML-DgV Reductase Allergy MUSCLE Verified 07/03/23 08:58 Inhibitor WEAKNESS [Jgqmwpj-Ako-Nia Reductase Inhibitor] Family History Grandfather Alcoholism Myocardial infarction, Onset Age: 55 Grandmother Alcoholism Mother Depression Other CVA (cerebral vascular accident) Heart disease Hypertension Thyroid disorder Surgical History H/O coronary artery bypass surgery (02/25/19) History of bilateral cataract extraction History of section History of coronary artery stent placement (01/24/19) History of dilatation and curettage History of left heart catheterization (01/2018) History of surgical procedure on eye proper using laser History of tonsillectomy Social History Smoking Status: Never smoker alcohol intake: current alcohol intake frequency: holidays/special occasions only substance use type: does not use caffeine: Yes Type: coffee Number of servings: 3 EXAM Physical Exam Const Vital Signs: 08/18/23 22:03 08/18/23 23:02 08/18/23 23:02 Temperature 97.6 F L Temperature Source Temporal Pulse Rate 87 Respiratory Rate 20 H 22 H Respiratory Effort Respiratory Pattern Blood Pressure 168/85 H Blood Pressure Mean 112 Pulse Ox 96 95 Oxygen Delivery Method Room Air Room Air Room Air 08/18/23 23:04 08/18/23 23:29 08/18/23 23:37 Temperature Temperature Source Pulse Rate 78 89 Respiratory Rate 13 21 H Respiratory Effort Normal Non-Labored Respiratory Pattern Normal Blood Pressure 143/72 H Blood Pressure Mean 95 Pulse Ox 96 Oxygen Delivery Method Room Air Positive well nourished and well developed Constitutional Narrative: Patient is slightly tachypneic. There is no use of accessory muscles. BMI is 54.4. General Appearance ED: well developed; Negative for pallor HEENT Reports moist mucous membranes HEENT Narrative: Posterior pharynx is normal. normocephalic and atraumatic Throat: posterior oropharynx normal Eyes PERRL General Eye ED: Negative for pale conjunctiva or scleral icterus Neck no lymphadenopathy, supple, no meningeal signs and no JVD Neck Narrative: Trachea is midline. There is no inspiratory expiratory stridor. Resp normal respiratory effort and clear to auscultation bilaterally Auscultation: wheezes expiratory wheezes and scattered wheezes Cardio S1 normal heart sound, S2 normal heart sound and no murmurs Cardio Narrative: Medial sternotomy scar noted. Rate: regular rate GI non-tender and non-distended Auscultation: normoactive bowel sounds Palpation: soft Extremity Extremity Narrative: Bilateral lymphedema. Left leg is slightly larger in size. She had graphs obtained from the left leg and states it is always larger in size. She denies history of DVT. There is no leg vein distention, palpable cords tenderness on the distribution deep venous system. Icaiag-fj-[id number], patient denies any pain in her leg. Neuro oriented x3 and CN's II-XII intact bilaterally Sensorium / Orientation: alert Psych mental status grossly normal Skin General Skin Exam: Negative for jaundice or pallor Lesions: no lesions Rashes: no rashes MDM MDM MDM Narrative Medical decision making narrative: Nurse protocol was initiated which included chest x-ray rapid antigen for flu, RSV and COVID. Since patient is wheezing she was treated with albuterol 6 puffs with spacer. Patient was reauscultated at 2355. Her wheezing has improved. She still has wheezing. Plan is to discharge with burst of prednisone. She told this may cause her blood sugar to rise. Since she is only had symptoms for 3 days and her findings are consistent with viral upper respiratory infection. Radiography Chest X-Ray - ED: 1 View and Read by ED Physician (Normal cardiac silhouette and size. Lung parenchyma normal. Hilum is normal. Osseous structures are unremarkable. This is apparently reviewed interpreted by me at [id number].) Diagnostic Testing: Clinical Impression(s) from Imaging Studies Chest X-Ray 08/18/23 22:45 IMPRESSION: No active disease. Electronically Signed: Ignacio Moses MD at 23:34 EDT , Rhythm Strip Rhythm Strip: Sinus Rhythm Rate: 87 Ectopy: None Treatment and Re-Evaluation Narrative: Patient was informed of her results. Plan is to discharge to home with inhaler and burst of prednisone Discharge Plan Triage Chief Complaint: Cold Sx ED Provider: Romel Del Real Dx/Rx/DC Orders Clinical Impression: Upper respiratory infection with cough and congestion, Atherosclerotic heart d [place]ase [place] coronary artery without angina pectoris, Essential (primary) hypertension, Diabetic retinopathy associated with type 1 diabetes mellitus, Hyperlipidemia, Acute bronchospasm Instructions: ED URI, Viral W/ Wheezing (Adult) Prescriptions: New prednisone 20 mg tablet 40 mg PO DAILY Qty: 10 0RF No Action loratadine 10 mg tablet 10 mg PO DAILY nitroglycerin 0.4 mg tablet, sublingual 0.4 mg SUBLINGUAL Q5-15M PRN (Reason: Cardiac/Chest Pain) Qty: 25 6RF aspirin 81 mg tablet,chewable 81 mg PO ONCE Qty: 90 3RF furosemide [Lasix] 40 mg tablet 40 mg PO DAILY PRN (Reason: edema) Qty: 30 0RF Rx Instructions: For 3-5 days daily followed by PRN (DME) Accu-Chek Guide test strips Strip See Rx Instructions .Route Qty: 100 3RF Rx Instructions: daily carboxymethylcellulose sodium 1 % drops, liquid gel 1 drp ophthalmic (eye) QHS PRN ezetimibe 10 mg tablet 10 mg PO DAILY Qty: 90 3RF insulin lispro [Humalog U-100 Insulin] 100 unit/mL solution 170 unit subcut DAILY Qty: 150 1RF Rx Instructions: via insulin pump bupropion HCl 300 MG tablet extended release 24 hr 300 mg PO DAILY cyclobenzaprine 10 mg Tablet 10 mg PO DAILY PRN (Reason: Muscle Pain) acetaminophen 500 mg Tablet 1,000 mg PO TID PRN PRN (Reason: Pain) levothyroxine [Levoxyl] 200 mcg tablet 200 mcg PO DAILY lisinopril 5 mg tablet 5 mg PO QHS Qty: 90 3RF metoprolol succinate 100 mg tablet extended release 24 hr 100 mg PO QHS Qty: 90 3RF Primary Care Provider: Angela Canchola Referrals: Angela Canchola MD [Primary Care Provider] - 3-5 Days if not improving Activity Restrictions/Additional Instructions: 2 puffs of inhaler with spacer every 2-4 hours while awake for the next 3 days then every 4-6 hours thereafter for wheezing or shortness of breath Take prednisone until gone Disposition Disposition: Home, Self Care
[2023-08-18 23:02] VITALS: RESP 22; O2SAT 95; BMI 54.3
[2023-08-18] MEDS: Albuterol Sulfate 8 gm Inhaler (60 puffs) 6 PUFF INHALATION (23:28)
[2023-08-18 23:29] VITALS: PULSE 78; RESP 13
[2023-08-18 23:37] VITALS: BP 143/72; PULSE 89; RESP 21; O2SAT 96
[2023-08-19] MEDS: predniSONE 20 MG Tablet 40 MG PO (00:09)
[2023-08-19 00:10] VITALS: BP 140/78; PULSE 86; RESP 16; TEMP 36.9; O2SAT 96
== END 2023-08-19 00:11 | disposition home or self-care (01) ==
PROVIDERS: Emergency Provider Emergency Medicine; PCP Internal Medicine; Visit Provider Emergency Medicine
DX: J06.9 Acute upper respiratory infection, unspecified (principal); I11.0 Hypertensive heart disease with heart failure; I50.22 Chronic systolic (congestive) heart failure; Z68.43 Body mass index [BMI] 50.0-59.9, adult; E10.42 Type 1 diabetes mellitus with diabetic polyneuropathy; Z79.4 Long term (current) use of insulin; J98.01 Acute bronchospasm; I25.10 Atherosclerotic heart disease of native coronary artery without angina pectoris; E78.5 Hyperlipidemia, unspecified; I89.0 Lymphedema, not elsewhere classified; Z96.41 Presence of insulin pump (external) (internal); E66.9 Obesity, unspecified; Z79.899 Other long term (current) drug therapy; Z79.82 Long term (current) use of aspirin
CPT/HCPCS: 71045; 87631; 94640; 94760; 99284

== ENCOUNTER → 2023-08-29 | Outpatient (CLI) | payer BC, SELFPAY ==
[2018-01-31 13:46] VITALS: BMI 45.4
[2023-08-29 13:07] LABS: Absolute Lymphocyte Count 2.19 X10^3/uL (0.83-4.51); Basophil# 0.08 X10^3/uL; Basophil% 0.7 % (0-1); Eosinophil# 0.55 X10^3/uL; Eosinophils% 4.7 % (0-5); Hematocrit 41.5 % (37-47); Hemoglobin 13.3 g/dL (12.0-15.0); Lymphocyte # 2.19 X10^3/ul (0.83-4.51); Lymphocyte % 18.7 % (19-41); Mean Corpuscular Hgb 30.3 pg (27.0-32.0); Mean Corpuscular Volume 94.5 fL (81-99); Monocyte# 0.75 X10^3/uL; Monocyte% 6.4 % (0-10); NRBC Flagged by Analyzer 0 % (0-5); Neutrophil # 8.03 X10^3/uL (2.7-7.7); Neutrophil % 68.7 % (47-70); Platelet Count 298 K/mm3 (150-450); RBC Distribution Width CV 13.7 % (11.6-14.6); RBC Distribution Width SD 47.8 fl (35.1-43.9); Red Blood Count 4.39 M/mm3 (4.2-5.4); White Blood Count 11.7 K/mm3 (4.4-11.0)
[2023-08-29 13:41] LABS: BNP,B-Type NATRIURETIC PEPTIDE 13.3 pg/mL (0-100)
[2023-08-29 13:43] LABS: ALB/GLOB Ratio 0.6 RATIO (0.9-2.4); AST(SGOT) 18 U/L (15-37); Alanine Aminotransfer ALT/SGPT 34 U/L (13-56); Albumin, Serum 2.7 g/dL (3.2-5.0); Alkaline Phosphatase 129 U/L (45-117); Anion Gap 7 (5-15); BUN 19 mg/dL (7-18); Calcium,Total 9.1 mg/dL (8.5-10.1); Chloride 104 mmol/L (98-107); Creatinine, Serum 0.63 mg/dL (0.55-1.02); EST Glomerular Filtration Rate 103 mL/min (>60); Est Glom Filt Rate - Afr Amer 125 mL/min (>60); Globulin 4.5 g/dL (2.2-4.2); Glucose 108 mg/dL (74-106); Potassium 3.9 mmol/L (3.5-5.1); Protein, Total 7.2 g/dL (6.4-8.2); Sodium Level 139 mmol/L (136-145)
== END | disposition home or self-care (01) ==
PROVIDERS: PCP Internal Medicine; Referring Provider Nurse Practitioner Gerontology; Visit Provider Nurse Practitioner Gerontology
DX: J06.9 Acute upper respiratory infection, unspecified (principal); I50.22 Chronic systolic (congestive) heart failure; E10.42 Type 1 diabetes mellitus with diabetic polyneuropathy; E10.65 Type 1 diabetes mellitus with hyperglycemia; I25.10 Atherosclerotic heart disease of native coronary artery without angina pectoris; Z96.41 Presence of insulin pump (external) (internal)
CPT/HCPCS: 36415; 80053; 83880; 85025

== ENCOUNTER → 2023-11-17 | Outpatient (CLI) | payer BC, SELFPAY ==
[2018-01-31 13:46] VITALS: BMI 45.4
--- NOTE | 2023-11-17 07:07 | ECHOCS_ITS ---
Reason For Study: DYSPNEA Procedure This was a 2D Doppler, Color Flow transthoracic echocardiogram. The study was technically difficult. Contrast injection was performed. Exam performed in department. Left Ventricle Normal LV size. Left ventricular systolic function is normal. The left ventricular ejection fraction is 60 %. No regional wall motion abnormalities noted. Right Ventricle Normal RV size. Normal systolic function. Atria Normal left atrium. Normal right atrium. Mitral Valve Normal mitral valve. Tricuspid Valve Normal tricuspid valve. Aortic Valve The aortic valve is not well visualized. Pericardium/Pleural No pericardial effusion. Medication Diluted definity 2ml given slow IV push to enhance endocardial definition. MMode/2D Measurements & Calculations Ao root diam: 2.1 cm LAV(MOD-sp4): 45.0 ml LA A4 area: 17.6 cm2 LA dimension(2D): 4.3 cm RA A4 area: 13.2 cm2 Time Measurements MV dec time: 0.10 sec Doppler Measurements & Calculations MV E max keyon: 94.1 cm/sec Lat Peak E' Keyon: 10.1 cm/sec Med Peak E' Keyon: 7.6 cm/sec MV A max keyon: 101.1 cm/sec E/E' lat: 9.3 E/E' med: 12.3 MV E/A: 0.93 MV V2 max: 105.0 cm/sec MV dec slope: 915.4 cm/sec2 Ao V2 max: 154.1 cm/sec MV max P.4 mmHg Ao max P.7 mmHg MV V2 mean: 77.1 cm/sec Ao V2 mean: 93.2 cm/sec MV mean P.7 mmHg Ao mean P.4 mmHg MV V2 VTI: 21.4 cm Ao V2 VTI: 36.9 cm AV (velocity ratio): 0.70 LV V1 max: 112.3 cm/sec PA V2 max: 105.3 cm/sec LV V1 max P.0 mmHg PA V2 mean: 61.9 cm/sec LV V1 mean P.7 mmHg LV V1 mean: 75.7 cm/sec LV V1 VTI: 25.9 cm ECHO/Echo Complete W/ Contrast Interpretation Summary Normal LV size. Left ventricular systolic function is normal. The left ventricular ejection fraction is 60 %. Contrast injection was performed. The study was technically difficult. The stud y was technically limited. Ordering Physician: Chapin Hood Referring Physician: Chapin Hood Performed By: Maryana Forde RCS
--- NOTE | 2023-11-17 10:45 | STRESSREP ---
Stress Test Report Pharmacologic myocardial perfusion stress test. 58-year-old lady with a history of coronary bypass surgery with shortness of breath. Resting EKG demonstrates sinus rhythm with a rate of 96 bpm. Resting blood pressure is 140/78 mmHg. 0.4 mg of regadenoson was infused per usual protocol followed by rapid intravenous saline flush injection. Continuous EKG monitoring was performed. The maximum heart rate was 111 bpm which was 67% of max impacted heart rate the maximum workload was 1 metabolic equivalent. At rest there were no ST or T wave changes noted to suggest ischemia and at peak infusion nonspecific ST changes were noted which did not meet the criteria for ischemia. No clinical angina is noted. The final blood pressure was 128/60 mmHg. Myocardial perfusion protocol. 14.9 mCi of technetium 99m sestamibi was injected at rest. 0.4 mg of regadenoson was infused per usual protocol. At peak infusion 45 point mCi of technetium 99m sestamibi was injected stress images were obtained stress and rest images were reconstructed and compared in the short axis vertical long and horizontal long axis. Gated images were also obtained. Perfusion SPECT analysis: Review of the stress images demonstrate normal uptake of tracer noted in all areas of the myocardium with a medium size defect noted in the distal anterior apical wall. The resting images similar demonstrated normal uptake of tracer noted in all areas of the myocardium with improvement in the distal artery apical wall suggesting a previous infarct with colleen-infarct ischemia present.. Gated SPECT analysis: The gated ejection fraction is 79%. Conclusion: Mildly abnormal pharmacologic myocardial perfusion stress test, with evidence of distal anterior apical ischemia and previous infarct Preserved ejection fraction.
== END | disposition home or self-care (01) ==
LOC: CVS 07:06
PROVIDERS: PCP Internal Medicine; Referring Provider Nurse Practitioner Family; Visit Provider Nurse Practitioner Family
DX: R06.02 Shortness of breath (principal)
CPT/HCPCS: 78452; 93017; 93306; A9500; Q9957; A4216; C8929; J2785

== ENCOUNTER 2023-11-25 03:13 | Emergency (ER) | payer BC, SELFPAY ==
[2018-01-31 13:46] VITALS: BMI 45.4
--- NOTE | 2023-11-25 03:14 | EKG12_ITS ---
Test Reason : DYSRHYTHMIA Blood Pressure : / mmHG Vent. Rate : 068 BPM Atrial Rate : 068 BPM P-R Int : 202 ms QRS Dur : 072 ms QT Int : 422 ms P-R-T Axes : 058 027 087 degrees QTc Int : 448 ms Normal sinus rhythm Low voltage QRS Septal infarct , age undetermined Abnormal ECG Confirmed by BHUMIKA BECERRIL, YOEL ([id number]), assistant editor RAGHU DIAMOND ([id number]) on 12/01/2023 6:13:04 AM Referred By: Confirmed By:BOONE BAI MD
[2023-11-25 03:15] VITALS: BP 153/50; PULSE 68; RESP 13; TEMP 36.8; O2SAT 100; BMI 58.6
[2023-11-25 03:31] LABS: Absolute Lymphocyte Count 1.67 X10^3/uL (0.83-4.51); Absolute Neutrophil Count 10.2 X10^3/uL (2.0-7.7); Basophil# 0.07 X10^3/uL; Basophil% 0.5 % (0-1); Eosinophil# 0.56 X10^3/uL; Eosinophils% 4.3 % (0-5); Hematocrit 40.1 % (37-47); Hemoglobin 12.9 g/dL (12.0-15.0); Lymphocyte # 1.67 X10^3/ul (0.83-4.51); Lymphocyte % 12.7 % (19-41); Mean Corp Hgb Conc 32.2 g/dL (32-36); Mean Corpuscular Hgb 30.9 pg (27.0-32.0); Mean Corpuscular Volume 96.2 fL (81-99); Mean Platelet Vol. 9.9 fl (6.2-12.0); Monocyte# 0.61 X10^3/uL; Monocyte% 4.6 % (0-10); NRBC Flagged by Analyzer 0 % (0-5); Neutrophil # 10.19 X10^3/uL (2.7-7.7); Neutrophil % 77.4 % (47-70); Platelet Count 304 K/mm3 (150-450); RBC Distribution Width CV 13.6 % (11.6-14.6); RBC Distribution Width SD 48.6 fl (35.1-43.9); Red Blood Count 4.17 M/mm3 (4.2-5.4); White Blood Count 13.2 K/mm3 (4.4-11.0)
--- NOTE | 2023-11-25 03:34 | EDS_ITS ---
HPI History of Present Illness Chief Complaint: Back Informant: patient Onset/Context/Timing Onset: Today Context: Sudden Onset Timing: Continuous Quality: Stabbing Location: Upper back Worsened by: Nothing Relieved by: Dry heaves Narrative Narrative: Patient presents with back pain that began this morning. Patient states it woke her up out of her sleep. Patient states it is over her upper back. Patient states it feels similar to the pain she had when she had a myocardial infarction. Patient describes her pain as stabbing. Patient states nothing makes it worse. Patient states when she had some dry heaves it started to feel better but it has returned. Patient states she had a stress test 1 week ago and was told if she had any symptoms to come to the emergency department. Prior similar symptoms: Yes PFSH PFSH Medical History Chronic systolic (congestive) heart failure Cat bite Insulin pump titration Presence of insulin pump Obesity Polyneuropathy due to type 1 diabetes mellitus Diabetic retinopathy associated with type 1 diabetes mellitus Arthritis Acute systolic (congestive) heart failure Paresthesia of right upper extremity Postoperative infection of wound of sternum Sedentary lifestyle Morbid obesity Essential (primary) hypertension Type 2 diabetes mellitus NSTEMI (non-ST elevated myocardial infarction) (01/23/19) Atherosclerotic heart disease of [place] coronary artery without angina pectoris Vision abnormalities Neuropathy Hyperlipidemia Cataracts, bilateral Bone fracture Anxiety Diabetic retinopathy associated with type 2 diabetes mellitus Diabetes mellitus type 2 in obese Home Medications ?Medication ?Instructions ?Recorded ?Last Taken ?Type bupropion HCl 300 mg 24 hr tablet, 300 mg PO DAILY depression 02/23/14 01/26/22 History extended release acetaminophen 500 mg tablet 1,000 mg PO TID PRN PRN Pain 01/27/22 11/25/23 History cyclobenzaprine 10 mg tablet 10 mg PO DAILY PRN Muscle Pain 01/27/22 11/25/23 History levothyroxine 200 mcg tablet 200 mcg PO DAILY thyroid 01/27/22 01/26/22 History (Levoxyl) loratadine 10 mg tablet 10 mg PO DAILY 05/30/22 Unknown History nitroglycerin 0.4 mg sublingual 0.4 mg sublingual Q5-15M PRN 05/30/22 Unknown Rx tablet Cardiac/Chest Pain #25 tabs Accu-Chek Guide test strips (blood #100 ea 01/10/23 Unknown Rx sugar diagnostic) aspirin 81 mg chewable tablet 81 mg PO ONCE #90 tabs 04/06/23 Unknown Rx carboxymethylcellulose sodium 1 % 1 drp ophthalmic (eye) QHS PRN dry 07/03/23 Unknown History eye liquid gel drops eye(s) ezetimibe 10 mg tablet 10 mg PO DAILY #90 tabs 07/03/23 Unknown Rx albuterol sulfate 90 mcg/actuation 2 puff inhalation Q6H PRN 08/31/23 Unknown History aerosol inhaler shortness of breath or wheezing furosemide 40 mg tablet (Lasix) 40 mg PO .COMPLEX edema #180 tabs 09/12/23 Unknown Rx potassium chloride 20 mEq 20 meq PO BID #180 tabs 09/12/23 Unknown Rx tablet,extended release lisinopril 5 mg tablet 5 mg PO QHS high blood pressure 10/09/23 Unknown Rx #90 tabs metoprolol succinate 100 mg 100 mg PO QHS heart #90 tabs 11/17/23 Unknown Rx tablet,extended release 24 hr amoxicillin 875 mg-potassium 1 tab PO BID 11/25/23 Unknown History clavulanate 125 mg tablet cetirizine 10 mg tablet (24Hour 10 mg PO DAILY PRN allergy symptoms 11/25/23 Unknown History Allergy) insulin lispro 100 unit/mL 174 unit subcut DAILY 11/25/23 Unknown History subcutaneous solution (Humalog U-100 Insulin) Allergy/AdvReac Type Severity Reaction Status Date / Time adhesive Allergy Rash Verified 11/25/23 03:14 bacitracin (From Neosporin Allergy Rash Verified 11/25/23 03:14 ([id number])) bacitracin zinc (From Allergy Rash Verified 11/25/23 03:14 Neosporin ([id number])) neomycin sulfate (From Allergy Rash Verified 11/25/23 03:14 Neosporin ([id number])) polymyxin B (From Neosporin Allergy Rash Verified 11/25/23 03:14 ([id number])) Iposqjk-[id number] Reductase Allergy MUSCLE Verified 11/25/23 03:14 Inhibitor ([id number] WEAKNESS Reductase Inhibitor) Family History Grandfather Alcoholism Myocardial infarction, Onset Age: 55 Grandmother Alcoholism Mother Depression Other CVA (cerebral vascular accident) Heart disease Hypertension Thyroid disorder Surgical History History of bilateral cataract extraction H/O coronary artery bypass surgery (02/25/19) History of coronary artery stent placement (01/24/19) History of surgical procedure on eye proper using laser History of section History of dilatation and curettage History of tonsillectomy History of left heart catheterization (01/2018) Social History Smoking Status: Never smoker alcohol intake: current alcohol intake frequency: holidays/special occasions only substance use type: does not use caffeine: Yes Type: coffee Number of servings: 3 ROS ROS ED Constitutional Constitutional ED: Denies chills or fever(s) Eyes Eyes: Denies blurry vision or change in vision ENT ENT ED: Denies rhinorrhea or sore throat Cardiovascular Cardiovascular: Denies chest pain or palpitations Respiratory/Chest Respiratory/Chest: Denies cough or dyspnea Gastrointestinal Gastrointestinal: Reports nausea; Denies vomiting Genitourinary Genitourinary ED: Denies dysuria or hematuria Musculoskeletal Musculoskeletal: Reports back pain; Denies neck pain Integumentary Reports rash; Denies abscess Neurologic Neurologic: Denies headache(s) or weakness Allergic/Immunologic Allergic/Immunologic ED: Denies mouth swelling or urticaria EXAM Physical Exam Const Vital Signs: 11/25/23 03:14 11/25/23 03:15 11/25/23 03:18 Temperature 98.3 F Temperature Source Oral Pulse Rate 68 Respiratory Rate 13 Respiratory Effort Normal Respiratory Pattern Normal Blood Pressure 153/50 H Blood Pressure Mean 84 Pulse Ox 100 Oxygen Delivery Method Room Air Room Air 11/25/23 05:13 Temperature Temperature Source Pulse Rate 66 Respiratory Rate 16 Respiratory Effort Respiratory Pattern Blood Pressure 141/55 H Blood Pressure Mean 83 Pulse Ox 97 Oxygen Delivery Method Room Air Positive well nourished and well developed General Appearance ED: well developed and NAD HEENT Reports moist mucous membranes Neck supple and no JVD Resp normal respiratory effort Auscultation: diminished lung sounds Cardio regular rate and regular rhythm GI non-tender and non-distended Palpation: soft Extremity Extremity Narrative: There is mild erythema over the ankles and lower legs bilaterally. There is no warmth. There is no tenderness noted. General Extremety ED: Negative for tenderness Neuro oriented x3, CN's II-XII intact bilaterally and no sensory deficits noted Sensorium / Orientation: alert Motor Exam: strength 5/5 throughout MDM MDM MDM Narrative Medical decision making narrative: Differential diagnosis includes cardiac dysrhythmia, cardiac ischemia, pneumonia, aortic dissection, electrolyte abnormality, and hypertensive urgency. EKG will be obtained to assess for cardiac dysrhythmia and cardiac ischemia. Chest x-ray will be obtained to assess for pneumonia, pneumothorax, and widened mediastinum. CBC will be obtained to assess for leukocytosis and anemia. Basic metabolic profile will be obtained to assess for electrolyte abnormality and renal function. High-sensitivity troponin will be obtained to assess for cardiac ischemia. 2-hour repeat high-sensitivity troponin will be obtained to assess for ongoing cardiac ischemia. D-dimer will be obtained to assess for pulmonary embolism and aortic dissection. Lab Data Attestation: I reviewed the patient's lab results. Lab results narrative: CBC was reviewed. There is a mild leukocytosis of 13.2. The remainder is within normal limits. Basic metabolic profile was reviewed. Glucose was elevated at 176. BUN was slightly elevated at 23. The remainder is within normal limits. D-dimer was elevated at 1.40. High-sensitivity troponin was reviewed and was normal at 4. 2-hour repeat high-sensitivity troponin was reviewed and was normal at 4. Labs: Laboratory Results - last 24 hr 11/25/23 11/25/23 03:20 05:35 WBC 13.2 H RBC 4.17 L Hgb 12.9 Hct 40.1 MCV 96.2 MCH 30.9 MCHC 32.2 RDW Std Deviation 48.6 H RDW Coeff of [place] 13.6 Plt Count 304 MPV 9.9 Immature Gran % (Auto) 0.500 Neut % (Auto) 77.4 H Lymph % (Auto) 12.7 L Rhea % (Auto) 4.6 Eos % (Auto) 4.3 Baso % (Auto) 0.5 Absolute Neuts (auto) 10.2 H Absolute Lymphs (auto) 1.67 Nucleated RBC % 0 D-Dimer Quant (PE/DVT) 1.40 H* Sodium 139 Potassium 4.2 Chloride 105 Carbon Dioxide 28.0 Anion Gap 6 BUN 23 H Creatinine 0.91 Estim Creat Clear Calc 114.29 Est GFR (MDRD) Af Amer 82 Est GFR (MDRD) Non-Af 68 BUN/Creatinine Ratio 25.2 H Glucose 176 H Calcium 8.9 Troponin I High Sens 4 4 Radiography Diagnostic Testing: Clinical Impression(s) from Imaging Studies Chest X-Ray 11/25/23 03:45 IMPRESSION: No significant interval change or acute process. Electronically Signed: Osmany Baum MD at 5:04 EDT , Chest CTA 11/25/23 06:23 IMPRESSION: 1. Negative for PE. 2. No thoracic aortic dissection acute pulmonary infiltrates. Electronically Signed: Osmany Baum MD at 7:43 EDT , Portable 1 view chest x-ray was obtained. On my independent interpretation, lung cobb are clear. There is mild cardiomegaly. Bony thorax is normal. There is no acute process noted. Radiologist also interpreted the x-ray and agrees. Because of the elevated D-dimer, CTA of the chest was obtained. There is no evidence of pulmonary embolism. There is no aortic dissection. There is no acute pulmonary infiltrate. This was interpreted by the radiologist and was also independently reviewed by myself. EKG Initial EKG: Attestation: I personally reviewed and interpreted this EKG as follows: Interpretation: Sinus Rhythm (68) and No Acute Injury Pattern Comments: EKG was obtained. On my independent interpretation, shows normal sinus rhythm with a rate of 68. OH interval was 202 ms. QRS interval was 72 ms. QTc interval was 448 ms. [place] was normal. There is low voltage. There are no acute ST or T wave changes noted. Prior EKG tracings: available for review Prior: Unchanged (03/29/2020) Treatment and Re-Evaluation :: Patient was given a dose of [place] here. Patient was advised of her findings. Patient was instructed to follow-up with her primary care physician in 5 to 7 days. Patient was instructed return if worse in any way. Patient understood and was agreeable with the plan. All questions were answered. Discharge Plan Triage Chief Complaint: Back Other Complaint: Chest Pain ED Provider: Jamal Howe Dx/Rx/DC Orders Clinical Impression: Acute back pain, Essential (primary) hypertension, Type 1 diabetes mellitus with hyperglycemia Instructions: ED Back Pain (Acute or Chronic) Prescriptions: No Action loratadine 10 mg tablet 10 mg PO DAILY nitroglycerin 0.4 mg tablet, sublingual 0.4 mg SUBLINGUAL Q5-15M PRN (Reason: Cardiac/Chest Pain) Qty: 25 6RF aspirin 81 mg tablet,chewable 81 mg PO ONCE Qty: 90 3RF (DME) Accu-Chek Guide test strips Strip See Rx Instructions .Route Qty: 100 3RF Rx Instructions: daily carboxymethylcellulose sodium 1 % drops, liquid gel 1 drp ophthalmic (eye) QHS PRN (Reason: dry eye(s)) ezetimibe 10 mg tablet 10 mg PO DAILY Qty: 90 3RF albuterol sulfate 90 mcg/actuation HFA aerosol inhaler 2 puff inhalation Q6H PRN (Reason: shortness of breath or wheezing) bupropion HCl 300 MG tablet extended release 24 hr 300 mg PO DAILY cyclobenzaprine 10 mg Tablet 10 mg PO DAILY PRN (Reason: Muscle Pain) acetaminophen 500 mg Tablet 1,000 mg PO TID PRN PRN (Reason: Pain) levothyroxine [Levoxyl] 200 mcg tablet 200 mcg PO DAILY cetirizine [24Hour Allergy] 10 mg tablet 10 mg PO DAILY PRN (Reason: allergy symptoms) amoxicillin-pot clavulanate 875-125 mg tablet 1 tab PO BID Rx Instructions: STARTED ON 11/21/23 insulin lispro [Humalog U-100 Insulin] 100 unit/mL solution 174 unit subcut DAILY Rx Instructions: via insulin pump furosemide [Lasix] 40 mg tablet 40 mg PO .COMPLEX Qty: 180 3RF Rx Instructions: 40 mg orally twice daily, about 4 to 6 hours apart; potassium chloride 20 mEq tablet extended release 20 meq PO BID Qty: 180 3RF lisinopril 5 mg tablet 5 mg PO QHS Qty: 90 3RF metoprolol succinate 100 mg tablet extended release 24 hr 100 mg PO QHS Qty: 90 3RF Primary Care Provider: Angela Canchola Referrals: Angela Canchola MD [Primary Care Provider] - 5-7 Days Print Language: [place] Disposition Disposition: Home, Self Care
--- NOTE | 2023-11-25 03:45 | RAD_ITS ---
EXAM: XR CHEST, 1 VIEW CLINICAL INDICATION: chest pain TECHNIQUE: Frontal view of the chest. COMPARISON: Previous chest radiographs of 08/18/2023 and 03/29/2020 FINDINGS: Lordotic positioning. LUNGS AND PLEURAL SPACES: No acute pulmonary infiltrates or pleural effusions. HEART: Heart size is mildly enlarged, accentuated by technique. Normal pulmonary vasculature. Coronary artery stent material is present. MEDIASTINUM: Mild elongation of the thoracic aorta. No mediastinal widening. BONES/JOINTS: Findings of previous median sternotomy are again noted. No acute osseous abnormality. SOFT TISSUES: Thoracic degenerative spurring. RAD/Chest 1 View (Portable) IMPRESSION: No significant interval change or acute process. Electronically Signed: Osmany Baum MD at 5:04 EDT ,
[2023-11-25 03:57] LABS: Anion Gap 6 (5-15); BUN 23 mg/dL (7-18); BUN/Creat Ratio 25.2 RATIO (10-20); Calcium,Total 8.9 mg/dL (8.5-10.1); Chloride 105 mmol/L (98-107); Creatinine, Serum 0.91 mg/dL (0.55-1.02); EST Glomerular Filtration Rate 68 mL/min (>60); Est Glom Filt Rate - Afr Amer 82 mL/min (>60); Estimated Creatinine Clearance 114.29 ml/min; Glucose 176 mg/dL (74-106); Potassium 4.2 mmol/L (3.5-5.1); Sodium Level 139 mmol/L (136-145); Troponin-I HS (w/2H Reflex) 4 pg/mL (3.0-54.0)
[2023-11-25 05:13] VITALS: BP 141/55; PULSE 66; RESP 16; O2SAT 97
[2023-11-25 05:29] LABS: Reflex Troponin-HS? (from REC) Y
--- NOTE | 2023-11-25 06:23 | CT_ITS ---
EXAM: CT ANGIOGRAPHY CHEST WITHOUT AND WITH INTRAVENOUS CONTRAST CLINICAL INDICATION: Elevated D-dimer TECHNIQUE: Helically acquired angiography images were obtained of the chest without and with intravenous contrast. This CT exam was performed using one or more of the following dose reduction techniques: automated exposure control, adjustment of the mA and/or kV according to patient size, and/or use of iterative reconstruction technique. MIP reconstructed images were created and reviewed. CONTRAST: IV 100mL [id number] RADIATION DOSE: Total DLP: 710.26 mGy-cm. COMPARISON: CTA chest of 03/29/2020. Portable chest radiograph of this same date. FINDINGS: PULMONARY ARTERIES: Unremarkable. Normal in caliber. No evidence of pulmonary embolism. AORTA: Unremarkable. Normal in caliber. No evidence of dissection. GREAT VESSELS OF AORTIC ARCH: Unremarkable. Normal in caliber. No evidence of dissection. LUNGS AND PLEURAL SPACES: Minimal atelectasis noted within the dependent portion of the left lung base. No acute interstitial or alveolar pulmonary infiltrates. No pneumothorax or pleural effusion. No mass. HEART: Coronary artery calcification is present. No significant pericardial effusion. MEDIASTINUM: Esophagus is unremarkable. No hiatal hernia. No hilar or mediastinal adenopathy. THYROID: Unremarkable. No thyroid lesions. BONES/JOINTS: Previous median sternotomy. Large flowing osteophytes noted throughout the mid to lower spine, consistent with DISH.. No acute osseous abnormality. No suspicious lytic or blastic abnormality. INTRAPERITONEAL SPACE: Visualized portions of the liver, spleen, pancreas, adrenal glands and left renal upper pole are unremarkable. No pneumoperitoneum is noted. CT/CTA Chest W/WO Contrast IMPRESSION: 1. Negative for PE. 2. No thoracic aortic dissection acute pulmonary infiltrates. Electronically Signed: Osmany Baum MD at 7:43 EDT ,
[2023-11-25 06:26] LABS: Troponin-I HS 4 pg/mL (3.0-54.0)
[2023-11-25 08:13] VITALS: BP 99/62; PULSE 65; RESP 18; TEMP 36.8; O2SAT 99
== END 2023-11-25 08:31 | disposition home or self-care (01) ==
PROVIDERS: Emergency Provider Emergency Medicine; PCP Internal Medicine; Visit Provider Emergency Medicine
DX: M54.9 Dorsalgia, unspecified (principal); I11.0 Hypertensive heart disease with heart failure; I50.22 Chronic systolic (congestive) heart failure; E10.65 Type 1 diabetes mellitus with hyperglycemia; Z79.4 Long term (current) use of insulin; E78.5 Hyperlipidemia, unspecified; I25.10 Atherosclerotic heart disease of native coronary artery without angina pectoris; I25.2 Old myocardial infarction; Z79.899 Other long term (current) drug therapy; Z79.82 Long term (current) use of aspirin; Z98.41 Cataract extraction status, right eye; Z98.42 Cataract extraction status, left eye; Z95.5 Presence of coronary angioplasty implant and graft
CPT/HCPCS: 71045; 71275; 80048; 84484; 85025; 85379; 93005; 99285; Q9967; A4216